=== PATIENT | female | born 1955 | race Caucasian/White ===

== ENCOUNTER 2024-02-18 09:52 | Outpatient (AMB) | payer OTHER, SELFPAY ==
--- NOTE | 2024-02-18 09:58 | A.OFFVIS_ITS ---
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 The patient is a 68 y/o woman with a history of CATIE presenting for an evaluation. She was having daytime drowsiness and snorring. She underwent a PSG demonstrating CATIE and was started on CPAP. She tried it, but felt like the pressures were too high. She could not tolerate it and returned it. In the meantime, she was having Chest pressure and was referred to cardiology. She has an appt early February. She presents today with persietent daytime drowsiness and would like to reattempt the use of CPAP. The pamtient has an EPWORTH score of 11.24. In the meantime, it was noted that her HR was only 35 and her blood pressure stable. She denied any dizziness, although, some BOUDREAUX. I briefly ambulated her and HR only ravin to 38. We had her get an EKG where appeared to be in a junctional rhythm with high degree block. I did communicate with cardiology and recommenened transferring to the ED. We had out nurse transfer her to the ED. She will have her cardiac issues dealt with and then we will have her go for an inpatient PSG with pulmonary follow up. [facility] Medical History (Updated 02/19/24 @ 14:21 by Kris Brown MD) CATIE (obstructive sleep apnea) Family History (Updated 02/18/24 @ 11:47 by Jak Byrnes MD) Mother Hypertension Social History (Updated 02/18/24 @ 10:07 by GLADYS Young) Patient Tobacco Use Status: Never used Tobacco Review of Systems Const Reports daytime sleepiness and Reports snoring Eyes Reports no additional complaints ENT Denies vertigo, Denies dizziness and Reports nasal congestion Card Denies chest pain and Reports dyspnea on exertion Resp Reports dyspnea on exertion, Reports snoring and Denies wheezing GI Reports no additional complaints Musc Reports no additional complaints Skin/Breast Denies rash Neuro Denies vertigo and Denies dizziness Aller/Immun Denies wheezing Physical Exam Vital Signs: Last Vital Signs Pulse 35 L 02/18/24 10:02 Pulse Ox 100 02/18/24 10:02 Oxygen Delivery Method Room Air 02/18/24 10:02 BMI result Body Mass Index 37.1 Last Vital Signs Temp 97.5 F 02/18/24 11:20 Pulse 36 L 02/18/24 11:20 Resp 12 02/18/24 11:20 BP 176/76 H 02/18/24 11:20 Pulse Ox 99 02/18/24 11:20 O2 Del Method Room Air 02/18/24 11:20 BMI result Body Mass Index 37.1 Const General: comfortable and no acute distress Orientation/consciousness: patient oriented x3 HEENT Other: Unremarkable Head: Yes normal to inspection Neck Neck: Yes normal visual inspection Chest Chest palpation & inspection: normal inspection of the chest Resp Effort & Inspection: normal respiratory effort Auscultation: clear to auscultation bilaterally Cardio Rate: bradycardic Heart sounds: S1 normal heart sound present, S2 normal heart sound present and no murmurs GI Palpation (GI): Soft to palpation Back/Spine/Pelvis Other: unremarkable Skin General skin exam: no rashes or lesions noted Neuro General: patient oriented x3 Extrem General: Yes normal to inspection Psych Mental Status: mental status grossly normal Assessment & Plan Assessment & Plan (1) Complete heart block: Code(s): I44.2 - Atrioventricular block, complete Category: Medical (2) CATIE (obstructive sleep apnea): Code(s): G47.33 - Obstructive sleep apnea (adult) (pediatric) Category: Medical Plan Transfer to ED in lab PSG F/U 2 months Coding Level of Care Code New Pt Level 5 (25400) Diagnoses Complete heart block I44.2 CATIE (obstructive sleep apnea) G47.33 Time Spent (min) 45
[2024-02-18 10:02] VITALS: PULSE 35; O2SAT 100; BMI 37.1
== END 2024-02-18 10:40 | disposition home or self-care (01) ==
PROVIDERS: PCP Internal Medicine; Visit Provider Hospitalist
DX: G47.33 Obstructive sleep apnea (adult) (pediatric) (principal); I44.2 Atrioventricular block, complete
CPT/HCPCS: 99205

== ENCOUNTER → 2024-02-18 09:52 | Outpatient (BNVA) | payer OTHER, SELFPAY | PROVIDERS: PCP Internal Medicine; Visit Provider Hospitalist | DX: G47.33 Obstructive sleep apnea (adult) (pediatric) (principal); I44.2 Atrioventricular block, complete | CPT/HCPCS: 99202 ==

== ENCOUNTER 2024-02-18 10:49 | Emergency (ER) | payer OTHER, SELFPAY ==
[2024-02-18 10:53] VITALS: BP 169/65; PULSE 38; RESP 16; TEMP 36.6; O2SAT 100; BMI 37.1
--- NOTE | 2024-02-18 10:55 | ED.GENADULT ---
HPI - General Adult General Chief complaint: Arrhythmia/Palpitations Stated complaint: abnormal ekg Time Seen by Provider: 02/18/24 11:08 Source: patient and old records reviewed Mode of arrival: ambulatory Limitations: no limitations History of Present Illness ED Provider: Leticia Jimenez PA-C HPI narrative: 68-year-old Trinidadian-speaking female with a history of HTN, hypothyroidism, obesity, CATIE who presents to the ER from Pulmonary office where she was being evaluated for the 1st time for obstructive sleep apnea, presents to the ER for evaluation after she was found to have complete heart block on EKG there. Patient states she feels well today. She denies any dizziness, palpitations, lightheadedness or episodes of near-syncope. She reports chronic fatigue and malaise that has been going on for several months. She denies any recent illnesses, fevers, chills, nausea, vomiting, abdominal pain or episodes of chest pain. She denies any shortness of breath. She states she last saw her PCP about a month ago and was never told about having a slow heart rate. She is not on any beta-blockers or calcium channel blockers. MD complaint: Complete heart block on EKG Relieving factors: none Exacerbating factors: none Associated symptoms: denies other symptoms Treatments prior to arrival: none Related Data Home Medications ?Medication ?Instructions ?Recorded ?Confirmed fluticasone propionate 50 intranasal 02/18/24 mcg/actuation nasal spray,suspension hydrochlorothiazide 25 mg tablet 25 mg PO DAILY 02/18/24 levothyroxine 112 mcg tablet mcg PO 02/18/24 omeprazole 20 mg capsule,delayed 20 mg PO DAILY 02/18/24 release Allergies Allergy/AdvReac Type Severity Reaction Status Date / Time No Known Allergies Allergy Verified 02/18/24 10:54 Review of Systems Review of Systems: Yes all other systems are reviewed and are negative PMFSH Family History Family History (Updated 02/18/24 @ 11:47 by Jak Byrnes MD) Mother Hypertension Social History Social History (Updated 02/18/24 @ 10:07 by GLADYS Young) Patient Tobacco Use Status: Never used Tobacco Smoked in Last 30 Days: No Use of substances other than those prescribed or required for medical reasons: No Advance Directives: No Advance Directives Information Provided: Yes Do you have a plan to hurt others: No Plan Physical Exam ED Vital Signs: Vital Signs - 24 hr 02/18/24 10:53 02/18/24 11:20 02/18/24 11:58 Temperature 97.8 F 97.5 F Pulse Rate 38 L 36 L 34 L Respiratory Rate 16 12 14 Blood Pressure 169/65 H 176/76 H 173/73 H Pulse Oximetry 100 99 97 Oxygen Delivery Method Room Air Room Air Room Air BMI result Body Mass Index 37.1 Appearance: Alert. Oriented X3. No acute distress. Head: normocephalic, atraumatic. Eyes: Pupils equal, round and reactive to light. ENT: Pharynx normal. No tonsillar swelling or exudate. Neck: Normal inspection. Neck supple. CVS: Bradycardic, irregular rhythm, no appreciated murmur. Pulses normal. Respiratory: No respiratory distress. Breath sounds normal. Abdomen: Obese soft and nontender. +BS x4 Skin: Skin warm and dry. Normal skin color. Normal skin turgor. No rashes. Extremities: No lower extremity edema. No joint swelling. Feet are warm and well perfused. Neuro/psych: Oriented X 3. No motor deficit. No sensory deficit. CN II-XII intact. Normal speech and cognition. Medical Decision Making Medical Decision Making MDM Narrative: 68-year-old Trinidadian-speaking female with history of hypertension, hypothyroidism, obesity presenting to the ER from Pulmonary office for evaluation of new onset complete heart block. She is hemodynamically stable with a blood pressure in the 160s to 170s systolic. She has no current symptoms. She is on the Zoll on arrival. Cardiology consulted. Dr. Byrnes down to evaluate the patient's bedside Lab workup here showing no anemia, no thrombocytopenia or leukocytosis. Heart rates in the 30s on the monitor. EKG consistent with complete heart block. Patient updated on diagnosis and management. Unfortunately unable to get cardiac pacemaker placed here and will need transfer to [facility]. Dr. Byrnes has been in bed request for the patient and she will be transferred to [facility] under Dr.. Bonds. Patient updated on plan of care using staffing executive. All questions were answered. Ambulance to be booked for transport. Differential Diagnosis Differential Diagnoses: The differential diagnosis associated with the presentation includes Complete heart block, second-degree heart block, sinus bradycardia, viral pericarditis, Lyme disease Admission/Observation Consideration of admission/observation: Escalation of care including admission/observation considered Consult Healthcare Provider Management of the patient was discussed with: Document Photographer Dr. Byrnes from Cardiology Lab Data MDM Lab Attestation statement: I reviewed the patient's lab results. 02/18/24 11:14 02/18/24 11:14 Labs: Lab Results 02/18/24 02/18/24 Range/Units 11:14 11:52 WBC 5.4 (4.8-10.8) X10*3/uL RBC 4.16 L (4.20-5.50) X10*6/uL Hgb 12.9 (12.0-16.0) g/dl Hct 39.1 (37.0-47.0) % MCV 94.0 (80.0-98.0) fL MCH 31.0 (27.0-33.0) pg MCHC 33.0 (31.0-35.0) g/dl RDW 13.6 (11.0-16.0) % Plt Count 197 (160-400) X10*3/uL MPV 11.2 (9.4-12.3) fL Immature Gran % (Auto) 0.4 (0.0-0.4) % Neut % (Auto) 49.4 (45-73) % Lymph % (Auto) 38.3 (20-40) % Bullitt % (Auto) 7.3 (2-11) % Eos % (Auto) 3.9 (0-4) % Baso % (Auto) 0.7 (0-2) % Lymph # (Auto) 2.1 (1.2-4.9) X10*3/uL Bullitt # (Auto) 0.4 (0.1-1.2) X10*3/uL Eos # (Auto) 0.2 (0.0-0.4) X10*3/uL Baso # (Auto) 0.0 (0.0-0.2) X10*3/uL Abs Immat Gran (auto) 0.02 (0.00-0.03) X10*3/uL Absolute Neuts (auto) 2.6 (2.0-8.3) x10*3/uL Absolute Nucleated RBC 0.000 (0.0-0.012) X10*3/uL Nucleated RBC % (auto) 0.0 (0.0-0.2) /100WBC PT 11.8 (11.1-13.3) SEC INR 1.0 (0.9-1.1) Hold Blue Top SEE NOTE Sodium 139 (135-145) mmol/L Potassium 5.1 (3.3-5.1) mmol/L Chloride 104 (96-108) mmol/L Carbon Dioxide 24 (22-29) mmol/L Anion Gap 16 (12-20) BUN 8 L (9-16) mg/dL Creatinine 0.83 (0.5-1.4) mg/dL Estim Creat Clear Calc 72.7 Estimated GFR > 60 Random Glucose 93 (60-115) mg/dL Calcium 9.6 (8.4-10.2) mg/dL Magnesium 2.1 (1.6-2.6) mg/dL Total Bilirubin 0.5 (0.0-1.0) mg/dL AST 31 (5-31) U/L ALT 14 (0-31) U/L Alkaline Phosphatase 90 (39-117) U/L Troponin I High Sens 3.9 (<3.5-17.0) ng/L Total Protein 7.5 (6.5-8.0) g/dL Albumin 3.7 (3.5-5.0) g/dL Hold Yellow Top See Note Independent Interpretation I performed an independent interpretation of an: EKG Interpretation: EKG from the office done at 9:22 this morning with complete heart block, there is complete dissociation between the P waves in the QRS complex. T-wave inversion in V1, no ST segment elevations or depressions EKG here at 12:22 showing sinus rhythm with complete heart block, ventricular rate 35 beats per minute, complete dissociation with P waves and QRS complexes, no ST segment elevations or depressions, right bundle branch block is present Independent Historian Clinical information obtained from an independent historian. History obtained from or confirmed by: Other (Adult granddaughter at the bedside) External Record Review External record reviewed: Outpatient record Tests considered The following testing was considered but not selected: cxr considered - [place] be [place] [facility] [place]cription Management I considered prescription management with: Other (Atropine) Chronic Conditions Patient?s care impacted by: Hypertension and Other (Obesity) Critical Care Time Critical Care Time Critical Care Time: Yes Total Critical Care Time: 42 Attestation: I have personally provided critical care time exclusive of time spent on separately billable procedures. Time includes review of lab data, radiology results, discussion with consultants, and monitoring for potential decompensation. Intervention performed as documented. Discharge Plan Discharge Clinical Impression: Complete heart block Patient Disposition: [facility] Transfer Details: [facility] Prescriptions: No Action levothyroxine 112 mcg tablet PO hydrochlorothiazide 25 mg tablet 25 mg PO DAILY omeprazole 20 mg capsule,delayed release(DR/EC) 20 mg PO DAILY fluticasone propionate 50 mcg/actuation spray,suspension intranasal Print Language: Trinidadian
--- NOTE | 2024-02-18 10:56 | ECG_ITS ---
Test Reason : BRADYCARDIA Blood Pressure : / mmHG Vent. Rate : 035 BPM Atrial Rate : 060 BPM P-R Int : 000 ms QRS Dur : 126 ms QT Int : 612 ms P-R-T Axes : 029 -12 023 degrees QTc Int : 467 ms Sinus rhythm with complete heart block and Idioventricular rhythm Right bundle branch block Minimal voltage criteria for LVH, may be normal variant ( R in aVL ) Abnormal ECG No previous ECGs available Referred By: Angelica Hong Electronically Signed By:KIRK MARKS
[2024-02-18 11:18] LABS: MANUAL DIFF FLAG NO
[2024-02-18 11:20] VITALS: BP 176/76; PULSE 36; RESP 12; TEMP 36.4; O2SAT 99
[2024-02-18 11:20] LABS: Basophils Percent Auto 0.7 % (0-2); Eosinophils Absolute Auto 0.2 X10*3/uL (0.0-0.4); Eosinophils Percent Auto 3.9 % (0-4); Hematocrit 39.1 % (37.0-47.0); Hemoglobin 12.9 g/dl (12.0-16.0); Imm Gran Abs Auto 0.02 X10*3/uL (0.00-0.03); Imm Gran Pct Auto 0.4 % (0.0-0.4); Lymphocytes Absolute Auto 2.1 X10*3/uL (1.2-4.9); Lymphocytes Percent Auto 38.3 % (20-40); Mean Platelet Volume 11.2 fL (9.4-12.3); Monocytes Absolute Auto 0.4 X10*3/uL (0.1-1.2); Monocytes Percent Auto 7.3 % (2-11); Neutrophils Absolute Auto 2.6 x10*3/uL (2.0-8.3); Neutrophils Percent Auto 49.4 % (45-73); Platelet Count 197 X10*3/uL (160-400); Red Blood Count 4.16 X10*6/uL (4.20-5.50); Red Cell Distribution Width 13.6 % (11.0-16.0); White Blood Count 5.4 X10*3/uL (4.8-10.8)
--- NOTE | 2024-02-18 11:24 | PC.NURSE ---
Pt brought to [facility] for treatment. Sent from pulmonology office after EKG revealing ?complete heart block. Pt asymptomatic. Denies chest pain, denies SOB. Reports chronic fatigue. A&Ox3 skin color wnl for ethnicity. Independent at baseline. night monitor applied, pacer pads applied, code cart at bedside. IV access obtained by this float RN- 18g left AC, 20g right AC, labs drawn pending results. Provider to bedside with metal painter for primary eval. Report given to Xiomara dorado RN.
--- NOTE | 2024-02-18 11:36 | PC.NURSE ---
Cardiology MD at bedside.
[2024-02-18 11:38] LABS: Alanine Aminotransferase 14 U/L (0-31); Albumin Level 3.7 g/dL (3.5-5.0); Alkaline Phosphatase 90 U/L (39-117); Anion Gap 16 (12-20); Aspartate Amino Transferase 31 U/L (5-31); Bilirubin Total 0.5 mg/dL (0.0-1.0); Blood Urea Nitrogen 8 mg/dL (9-16); Calcium 9.6 mg/dL (8.4-10.2); Carbon Dioxide 24 mmol/L (22-29); Chloride 104 mmol/L (96-108); Creatinine Clr Calc Pharmacy 72.7; Estimated Glomerular Filt Rate > 60; Glucose Random 93 mg/dL (60-115); Magnesium 2.1 mg/dL (1.6-2.6); Potassium 5.1 mmol/L (3.3-5.1); Sodium 139 mmol/L (135-145); Total Protein 7.5 g/dL (6.5-8.0)
[2024-02-18 11:41] LABS: Troponin-I High Sensitivity 3.9 ng/L (<3.5-17.0)
--- NOTE | 2024-02-18 11:46 | P.CONCA_ITS ---
History of Present Illness History of Present Illness Date of Service: 02/18/24 Chief complaint: abnormal ekg Narrative: This is a cardiology consultation regarding bradycardia,. I received a call from Dr. Brown stating that he had patient and his Pulmonary Clinic who had low heart rates. Following that, advised him to send the patient to the emergency room. EKG had revealed complete heart block. Patient states that she does not really have any known cardiac issues. She does not seem to be on any beta-blockers or calcium channel blockers at baseline. She denies any prior coronary disease or cardiomyopathy or in fact any other cardiac issues. Seems to be hypertensive at baseline on hydrochlorothiazide. Otherwise, she states that she does get short of breath with activity but no anginal-type chest pains. Currently, she states she feels okay. Not syncopal. Review of Systems 2 Review of Systems: Yes all other systems are reviewed and are negative Constitutional: Constitutional: Reports as per HPI and Reports no additional constitutional complaints Eyes: Eyes: Reports as per HPI and Denies no additional eye complaints ENT: Denies system reviewed and no additional complaints, except as documented and Reports as per HPI Cardiovascular: Cardiovascular: Reports as per HPI, Reports no additional cardiovascular complaints, Denies acrocyanosis, Denies cool extremities, Denies chest pain, Denies leg edema, Denies lightheadedness, Denies palpitations and Reports dyspnea Respiratory: Respiratory: Reports as per HPI, Denies no additional respiratory complaints and Reports dyspnea Gastrointestinal: Gastrointestinal: Reports as per HPI and Denies no additional gastrointestinal complaints Genitourinary: Genitourinary: Reports as per HPI Musculoskeletal: Musculoskeletal: Reports no additional musculoskeletal complaints and Reports as per HPI Integumentary/Breasts: Skin/Breast: Reports system reviewed and no additional complaints, except as docu Neurologic: Reports system reviewed and no additional complaints, except as documented and Reports as per HPI Psychiatric: Psychiatric: Reports no additional psychiatric complaints and Reports as per HPI Endocrine: Endocrine: Reports no additional endocrine complaints, Reports as per HPI and Denies palpitations Hematologic/Lymphatic: Hematologic/Lymphatic: Reports no additional hematologic/lymphatic complaints and Reports as per HPI Allergic/Immunologic: Allergic/Immunologic: Reports no additional allergic/immunologic complaints and Reports as per HPI [facility] Family History Family History (Updated 02/18/24 @ 11:47 by Jak Byrnes MD) Mother Hypertension Social History Social History (Updated 02/18/24 @ 10:07 by GLADYS Young) Patient Tobacco Use Status: Never used Tobacco Smoked in Last 30 Days: No Use of substances other than those prescribed or required for medical reasons: No Do you have a plan to hurt others: No Plan Meds Allergies Allergy/AdvReac Type Severity Reaction Status Date / Time No Known Allergies Allergy Verified 02/18/24 10:54 Home Medications ?Medication ?Instructions ?Recorded ?Confirmed ?Last Taken ?Type fluticasone propionate 50 intranasal 02/18/24 Unknown History mcg/actuation nasal spray,suspension hydrochlorothiazide 25 mg tablet 25 mg PO DAILY 02/18/24 Unknown History levothyroxine 112 mcg tablet mcg PO 02/18/24 Unknown History omeprazole 20 mg capsule,delayed 20 mg PO DAILY 02/18/24 Unknown History release Physical Exam 2 Vital Signs: Vital Signs: Last Vital Signs Temp 97.5 F 02/18/24 11:20 Pulse 36 L 02/18/24 11:20 Resp 12 02/18/24 11:20 BP 176/76 H 02/18/24 11:20 Pulse Ox 99 02/18/24 11:20 O2 Del Method Room Air 02/18/24 11:20 BMI result Body Mass Index 37.1 Const: General: comfortable and no acute distress O rientation/consciousness: patient oriented x3 HEENT: Other: Unremarkable Head: Yes normal to inspection Neck: Neck: Yes normal visual inspection Chest: Chest palpation & inspection: normal inspection of the chest Resp: Auscultation: clear to auscultation bilaterally Cardio: Palpation: normal PMI Heart sounds: S1 normal heart sound present, S2 normal heart sound present, no gallops, no murmurs and no rubs GI: Palpation (GI): Soft to palpation Back/Spine/Pelvis: Other: unremarkable Skin: General skin exam: no rashes or lesions noted Neuro: General: patient oriented x3 Extrem: General: Yes normal to inspection Psych: Mental Status: mental status grossly normal Objective Labs and Meds 02/18/24 11:14 02/18/24 11:14 Lab results: Laboratory Results - last 24 hr 02/18/24 11:14 WBC 5.4 RBC 4.16 L Hgb 12.9 Hct 39.1 MCV 94.0 MCH 31.0 MCHC 33.0 RDW 13.6 Plt Count 197 MPV 11.2 Immature Gran % (Auto) 0.4 Neut % (Auto) 49.4 Lymph % (Auto) 38.3 [place]tinger % (Auto) 7.3 Eos % (Auto) 3.9 Baso % (Auto) 0.7 Lymph # (Auto) 2.1 [place]tinger # (Auto) 0.4 Eos # (Auto) 0.2 Baso # (Auto) 0.0 Abs Immat Gran (auto) 0.02 Absolute Neuts (auto) 2.6 Absolute Nucleated RBC 0.000 Nucleated RBC % (auto) 0.0 Sodium 139 Potassium 5.1 Chloride 104 Carbon Dioxide 24 Anion Gap 16 BUN 8 L Creatinine 0.83 Estim Creat Clear Calc 72.7 Estimated GFR > 60 Random Glucose 93 Calcium 9.6 Magnesium 2.1 Total Bilirubin 0.5 AST 31 ALT 14 Alkaline Phosphatase 90 Troponin I High Sens 3.9 Total Protein 7.5 Albumin 3.7 Hold Yellow Top See Note ECG Interpretation: EKG from pulmonary office shows complete heart block with likely junctional escape at 36/Min. Assessment and Plan (1) Complete heart block: Status: Acute Plan EKG suggestive of complete heart block with junctional escape rhythm. Patient has exertional shortness of breath. Labs are essentially unremarkable with normal troponins. Discussed with ER provider as well as with [facility] transfer service/EP, . Transferred to [facility] for pacemaker placement. Discussed with patient as well as her family and they are in agreement. Procedures Date of Service Date of Service: 02/18/24
--- OUTSIDE RECORDS SUMMARY | 2024-02-18 11:47 | XMS_ITS | Continuity of Care Document ---
Author Organization [facility] Address [address] [place] [address]- Care Team Providers Care Carburetor Repairer Name Role Phone Jordan CALVERT, Oscar Primary Care Physician Encounter [facility] Date(s): 07/09/23 - 08/08/[address] [address]- Attending Physician: Duke Corley Admitting Physician: AdmtrDuke Referring Physician: Admtr, Ar8 Allergies, Adverse Reactions, Alerts No Known Allergies Immunizations Given and Recorded Vaccine Date Status Refusal Reason influenza virus vaccine, inactivated 06/20/16 Give n influenza virus vaccine, inactivated 1 09/06/14 Gi briana influenza virus vaccine, inactivated 2 05/27/13 Gi briana tetanus/diphtheria/pertussis, acel(Tdap) 3 05/27/13 Given 1Result Comment: [09/06/2014] Charline interpreting. No contraindications noted. Remains at [facility] x next 20 minutes. 2Result Comment: [05/27/2013] flulaval 3Result Comment: [05/27/2013] Adacel. VIS in Malagasy given. Medications Amlodipine By Mouth, Daily, 0 Refills, Maintenance, 12/29/22 0:49:00 EDT, Partial fill upon patient request ifthe prescription is for a schedule II opioid drug. Start Date: 12/29/22 Status: Ordered CPAP Machine Auto CPAP 6-11, Maintenance, 01/07/18 18:46:29 EDT, Compound Start Date: 01/07/18 Status: Ordered First Omeprazole See Instructions, 0 Refills, Maintenance, 12/29/22 0:49:00 EDT, Partial fill upon patient request if the prescription is for a schedule II opioid drug. Start Date: 12/29/22 Status: Ordered Lasix 20 mg oral tablet 20 mg, 1, tablet, By Mouth, Every other day, PRN, may repeat for persistent swelling, # 20 tablet, Refills 0, Tot. Refills 0, Maintenance, Other, 12/29/22 3:16:00 EDT, Route to Pharmacy Electronically, [id number], Partial fill upon pa... Start Date: 12/29/22 Stop Date: 01/05/23 Status: Ordered levothyroxine 0.112 mg oral tablet 1 tablet = 112 mcg, By Mouth, Daily, 0 Refills, Maintenance, 10/30/16 12:01:22 Start Date: 10/30/16 Status: Ordered Meloxicam Daily, 0 Refills, Maintenance, 12/29/22 0:48:00 EDT, Partial fill upon patient request if the prescription is for a schedule II opioid drug. Start Date: 12/29/22 Status: Ordered Ranitidine 0 Refills, Maintenance, 05/05/18 11:24:48 EDT Start Date: 05/05/18 Status: Ordered Trazodone By Mouth, 0 Refills, Maintenance, 12/29/22 0:48:00 EDT, Partial fill upon patient request if the prescription is for a schedule II opioid drug. Start Date: 12/29/22 Status: Ordered zolpidem 10 mg oral tablet 1 tablet = 10 mg, By Mouth, Daily at bedtime, PRN for sleep, 0 Refills, Maintenance, 11/02/17 10:56:14 EDT, Tablet Start Date: 11/02/17 Status: Ordered Problem List Condition Confirmation Course Effective Dates Status H ealth Status Informant Anxiety Confirmed Active Atypical ductal hyperplasia of breast Confirmed Active Atypical endometrial cells on Pap smear Confirmed 12/15/16 Active Constipation Confirmed Active Contact dermatitis, in ER Confirmed Active Dementia - mild, mixed, per -2014 neuropsychiatric testing Confirmed Active Disorder of lower leg - lateral meniscus issues bilaterally and severe OA, see note if needed 1 Confirmed Active Allergy to dust Confirmed Active S/P TKR (total knee replacement) left 2 Confirmed 12/2015 Active Hypertensive disorder Confirmed Active Hypothyroidism Confirmed Active Impaired glucose tolerance Confirmed 2012 Active Obesity Confirmed Active CATIE (obstructive sleep apnea); moderate -2013 Confirmed Active Osteoarthritis of knee, end-stage per -2013 Confirmed Active Postmenopausal bleeding Confirmed Active Seborrheic keratosis 3 Confirmed Active Severe obesity (BMI 35.0-39.9) with comorbidity Confirmed Active Varicose veins Confirmed Active 1bilateral, severe per MRI done in [place] May 2012 2left 3of nose per Derm note Social History Social History Type Response Smoking Status Never smoker; Tobacc o user in household: No entered on: 12/04/14 Sex Patient Care team information Care Team Personnel Name: Yamilka Meza RN Position: [facility] RN Member Role: Primary Care Nurse Name: Genesis Gutiérrez RN Position: [facility] RN Member Role: Primary Care Nurse Name: Oscar Ortega MD Position: Reference Physician Member Role: PCP Address: Address: [address] [facility] [place], [place] [address] Name: Nahomy Orr RN Position: [facility] [employer] Member Role: Primary Care Nurse Care Team Related Persons Name: NASRA JOHNSON Address: home [address] [place] [address] Name: REYNALDO LUCIANO Address: home [address] [place] [address] Name: CESAR LIN Address: home [address] [place] [address] Name: NED LIN Address: home [address] [place] [address]
--- OUTSIDE RECORDS SUMMARY | 2024-02-18 11:47 | XMS_ITS | Continuity of Care Document ---
Author Organization [facility] Address [address] [place] [address]- Care Team Providers Care Medical Record Specialist Name Role Phone Boby CALVERT, Ericka Munguia Primary Care Physician [place] [facility] [place] 11/11/19 - 11/21/19 [facility] [address] [facility] [place] [address]- [facility] Attending Physician: Admtr, Sal8 Admitting Physician: Admtr Ar8 Referring Physician: Admtr, Ar8 Allergies, Adverse Reactions, Alerts Substance Reaction Severity Status NKA Active Immunizations Given and Recorded Vaccine Date Status Refusal Reason influenza virus vaccine, inactivated 06/20/16 Give n influenza virus vaccine, inactivated 1 09/06/14 Gi briana influenza virus vaccine, inactivated 2 05/27/13 Gi briana tetanus/diphtheria/pertussis, acel(Tdap) 3 05/27/13 Given 1Result Comment: [09/06/2014] Charline interpreting. No contraindications noted. Remains at [facility] x next 20 minutes. 2Result Comment: [05/27/2013] flulaval 3Result Comment: [05/27/2013] Adacel. VIS in Belarusian given. Medications CPAP Machine Auto CPAP 01-04, Maintenance, 01/07/18 18:46:29 EDT, Compound Start Date: 01/07/18 Status: Ordered levothyroxine 0.112 mg oral tablet 1 tablet = 112 mcg, By Mouth, Daily, 0 Refills, Maintenance, 10/30/16 12:01:22 Start Date: 10/30/16 Status: Ordered Ranitidine 0 Refills, Maintenance, 05/05/18 11:24:48 EDT Start Date: 05/05/18 Status: Ordered zolpidem 10 mg oral tablet 1 tablet = 10 mg, By Mouth, Daily at bedtime, PRN for sleep, 0 Refills, Maintenance, 11/02/17 10:56:14 EDT, Tablet Start Date: 11/02/17 Status: Ordered Problem List Condition Effective Dates Status Health Status Inform ant Anxiety(Confirmed) Active Atypical ductal hyperplasia of breast(Confirmed) Active Atypical endometrial cells o n Pap smear(Confirmed) 12/15/16 Active Constipation(Confirmed) Active Contact dermatitis, in ER (Confirmed) Active Dementia - mild, mixed, per -2014 neuropsychiatric testing(Confirmed) Active Disorder of lower leg - late ral meniscus issues bilaterally and severe OA, see note if needed(Confirmed) 1 Active Allergy to dust(Confirmed) Active S/P TKR (total knee replacem ent) left(Confirmed) 2 12/2015 Active Hypertensive disorder(Confirmed) Active Hypothyroidism(Confirmed) Active Impaired glucose tolerance(Confirmed) 2012 Active Obesity(Confirmed) Active CATIE (obstructive sleep apnea ); moderate -2013(Confirmed) Active Osteoarthritis of knee, end- stage per (Confirmed) Active Postmenopausal bleeding(Confirmed) Active Seborrheic keratosis(Confirmed) 3 Active Varicose veins(Confirmed) Active 1bilateral, severe per MRI done in [place] May 2012 2left 3of nose per Derm note Social History Social History Type Response Smoking Status Never smoker; Tobacc o user in household: No entered on: 12/04/14 Sex
--- OUTSIDE RECORDS SUMMARY | 2024-02-18 11:47 | XMS_ITS | Continuity of Care Document ---
Author Organization [facility] Address [address] [place] [address]- Care Team Providers Care Analytical Scientist Name Role Phone Ericka Landis MD Primary Care Physician [place] [facility] [place] 01/10/20 - 02/23/20 [facility] [address] [place] [address]- [facility] Attending Physician: Alejandrina Allen NP Admitting Physician: Alejandro DANG, Alejandrina Referring Physician: Ericka Landis MD Allergies, Adverse Reactions, Alerts Substance Reaction Severity [...] flulaval 3Result Comment: [05/27/2013] Adacel. VIS in Swazi given. Medications CPAP Machine Auto CPAP 01-04, [...] Active CATIE (obstructive sleep apnea ); moderate (Confirmed) Active Osteoarthritis of knee, end- stage per (Confirmed) Active Postmenopausal bleeding(Confirmed) Active Seborrheic keratosis(Confirmed) 3 Active Varicose veins(Confirmed) Active 1bilateral, severe per MRI done in [place] May 2012 2left 3of nose per Derm note Social History Social History Type Response Smoking Status Never smoker; Tobacc o user in household: No entered on: 12/04/14 Sex
--- OUTSIDE RECORDS SUMMARY | 2024-02-18 11:48 | XMS_ITS | Continuity of Care Document ---
Author Organization [facility] Address [address] [place] [address]- Care Team Providers Care Amusement Park Entertainer Name Role Phone Ericka Landis MD Primary Care Physician [place] [facility] [place] 01/10/20 - 02/23/20 [facility] [address] [place] [address]- [facility] Attending Physician: Judit Allison MD Referring Physician: Ericka Landis MD Allergies, Adverse [...] flulaval 3Result Comment: [05/27/2013] Adacel. VIS in Sudanese given. Medications CPAP Machine Auto CPAP 01-04, [...] (Confirmed) Active Dementia - mild, mixed, per neuropsychiatric testing(Confirmed) Active Disorder of lower leg [...] Active 1bilateral, severe per MRI done in [place] May 2012 2left 3of nose per Derm note Social History Social History Type Response Smoking Status Never smoker; Tobacc o user in household: No entered on: 12/04/14 Sex
--- OUTSIDE RECORDS SUMMARY | 2024-02-18 11:48 | XMS_ITS | Continuity of Care Document ---
Author Organization [facility] Address [address] [place] [address]- Care Team Providers Care Airplane Patroller Name Role Phone Ericka Landis MD Primary Care Physician [place] [facility] [place]/19 [facility] [address] [facility] [address]- [facility] Attending Physician: Alejandrina Allen NP Admitting Physician: Alejandrina Allen NP Referring Physician: Ericka Landis MD Allergies, Adverse Reactions, Alerts Substance Reaction Severity Status NKA Active Immunizations Given and Recorded Vaccine Date Status Refusal Reason influenza virus vaccine, inactivated 06/20/16 Give n influenza virus vaccine, inactivated 1 09/06/14 Gi brinaa influenza virus vaccine, inactivated 2 05/27/13 Gi briana tetanus/diphtheria/pertussis, acel(Tdap) 3 05/27/13 Given 1Result Comment: [09/06/2014] Charline interpreting. No contraindications noted. Remains at [facility] x next 20 minutes. 2Result Comment: [05/27/2013] flulaval 3Result Comment: [05/27/2013] Adacel. VIS in Yakut given. Medications CPAP Machine Auto CPAP 01-04, [...]
--- OUTSIDE RECORDS SUMMARY | 2024-02-18 11:48 | XMS_ITS | Continuity of Care Document ---
Author Organization [facility] Address [address] [place] [address]- Care Team Providers Care Supervisor Extruding Department Name Role Phone Not on Staff, PCP Primary Care Physician Unavail able [place] [facility] [place] 03/24/20 [facility] [address] [place] [address]- [facility] Attending Physician: Alejandro DANG, Alejandrina Admitting Physician: Alejandro DANG, Alejandrina Referring Physician: Boby CALVERT , Ericka Munguia Allergies, Adverse Reactions, Alerts Substance Reaction Severity [...] flulaval 3Result Comment: [05/27/2013] Adacel. VIS in Azerbaijani given. Medications CPAP Machine Auto CPAP 01-04, [...] Active 1bilateral, severe per MRI done in [place] May 2012 2left 3of nose per Derm note Social History Social History Type Response Smoking Status Never smoker; Tobacc o user in household: No entered on: 12/04/14 Sex
--- OUTSIDE RECORDS SUMMARY | 2024-02-18 11:48 | XMS_ITS | Continuity of Care Document ---
Author Organization [facility] Address [address] [place] [address]- Care Team Providers Care Fiberglass Machine Operator Name Role Phone Boby CALVERT, Ericka Munguia Primary Care Physician En[place] [facility] [place] Date(s): 01/24/20 - 02/23/20 [facility] [address] [place] [address]- [facility] Attending Physician: Admtr, Sal8 Admitting Physician: Admtr, Ar8 Referring Physician: Admtr, Ar8 Allergies, Adverse [...] flulaval 3Result Comment: [05/27/2013] Adacel. VIS in Russian given. Medications CPAP Machine Auto CPAP 01-04, [...] Active 1bilateral, severe per MRI done in [place] May 2012 2left 3of nose per Derm note Social History Social History Type Response Smoking Status Never smoker; Tobacc o user in household: No entered on: 12/04/14 Sex
--- OUTSIDE RECORDS SUMMARY | 2024-02-18 11:48 | XMS_ITS | Continuity of Care Document ---
Author Organization [facility] Address [address] [place] [address]- Care Team Providers Care Combined Rail Operator Name Role Phone Not on Staff, PCP Primary Care Physician Unavail able Encounter [facility] [place] Date(s): 10/25/21 - 06/21/22 [facility] [address] [place] [address]- Attending Physician: Alma Dugan MD Admitting Physician: Alma Dugan MD Referring Physician: Not on Staff, Referring MD Allergies, Adverse Reactions, Alerts No Known Allergies [...] flulaval 3Result Comment: [05/27/2013] Adacel. VIS in Yemeni given. Medications CPAP Machine Auto CPAP 01-04, [...] Confirmed Active Dementia - mild, mixed, per neuropsychiatric testing Confirmed Active Disorder of lower leg - lateral meniscus issues bilaterally and severe OA, see note if needed 1 Confirmed Active Allergy to dust Confirmed Active S/P TKR (total knee replacement) left 2 Confirmed 12/2015 Active Hypertensive disorder Confirmed Active Hypothyroidism Confirmed Active Impaired glucose tolerance Confirmed 2012 Active Obese class II Confirmed Active Obesity Confirmed Active CATIE (obstructive sleep apnea); moderate -2013 Confirmed Active Osteoarthritis of knee, end-stage per Confirmed Active Postmenopausal bleeding Confirmed Active Seborrheic keratosis 3 Confirmed Active Varicose veins Confirmed Active 1bilateral, severe per MRI done in [place] May 2012 2left 3of nose per Derm note Social History Social History Type Response Smoking Status Never smoker; Tobacc o user in household: No entered on: 12/04/14 Sex Patient Care team information Care Team Personnel Name: Yamilka Meza RN Position: [facility] RN Member Role: Primary Care Nurse Name: Not on Staff, PCP Position: [facility] Physician (General Medicine) Member Role: PCP Name: Genesis Gutiérrez RN Position: [facility] RN Member Role: Primary Care Nurse Name: Nahomy Orr RN Position: [facility] Hospital Equipment Specialist Member Role: Primary Care Nurse Care Team Related Persons Name: NASRA JOHNSON Address: [address] [place] [address] Name: REYNALDO LUCIANO Address: [address] [place] [address] Name: EMILEE LIN Address: [address] [place] [address] Name: NED LIN Address: [address] [place] [address]
--- OUTSIDE RECORDS SUMMARY | 2024-02-18 11:48 | XMS_ITS | Continuity of Care Document ---
Author Organization [facility] Address [address] [place] [address]- Care Team Providers Care Supervisor Waterproofing Name Role Phone Not on Staff, PCP Primary Care Physician Unavail able [place] [facility] [place] 03/28/20 - 04/04/20 [facility] [address] [place] [address]- [facility] Encounter Diagnosis Travel advice encounter(Discharge Diagnosis) - 03/28/20 Attending Physician: Payal CALVERT, Trace Gil Allergies, Adverse Reactions, Alerts Substance Reaction Severity [...] flulaval 3Result Comment: [05/27/2013] Adacel. VIS in Belgian given. Medications CPAP Machine Auto CPAP 01-04, [...] Active 1bilateral, severe per MRI done in [place] May 2012 2left 3of nose per Derm note Diagnosis Diagnosis Type Effective Dates Health Status Cl inical Service Informant Travel advice encounter Discharge Diagnosis 03/28/20 Social History Social History Type Response Smoking Status Never smoker; Tobacc o user in household: No entered on: 12/04/14 Sex
--- OUTSIDE RECORDS SUMMARY | 2024-02-18 11:48 | XMS_ITS | Continuity of Care Document ---
Author Organization [facility] Address [address] [place] [address]- Care Team Providers Care Tanbark Peeler Name Role Phone Jordan CALVERT, Oscar Primary Care Physician Encounter [facility] [place] Date(s): 02/02/23 - 02/02/[address] [address]- Encounter Diagnosis Head injury, acute, without loss of consciousness(Final) - 02/02/23 Discharge Disposition: A-D/C Home Attending Physician: Nuno Cordero MD Admitting Physician: Nuno Cordero MD Referring Physician: Not on Staff, Referring [...] flulaval 3Result Comment: [05/27/2013] Adacel. VIS in Sami given. Medications Amlodipine By Mouth, Daily, 0 Refills, Maintenance, 12/29/22 0:49:00 EDT, Partial fill upon patient request ifthe prescription is for a schedule II opioid drug. Start Date: 12/29/22 Status: Ordered CPAP Machine Auto CPAP 6-, Maintenance, 01/07/18 18:46:29 EDT, Compound Start Date: [...] 12/29/22 3:16:00 EDT, Route to Pharmacy Electronically, [id number], Partial fill upon pa... Start Date: 12/29/22 [...] Confirmed Active CATIE (obstructive sleep apnea); moderate Confirmed Active Osteoarthritis of knee, end-stage per Confirmed Active Postmenopausal bleeding Confirmed Active Seborrheic keratosis 3 Confirmed Active Severe obesity (BMI 35.0-39.9) with comorbidity Confirmed Active Varicose veins Confirmed Active 1bilateral, severe per MRI done in [place] May 2012 2left 3of nose per Derm note Results Radiology Reports * Exam Date Time Procedure Performing Provider Status 02/02/23 9:[address] Cervical Spine W/O Contrast Erlinda Keene nd; Christopher (Verified) Notes: (CT Cervical Spine W/O Contrast) Reason For Exam: Neck trauma, dangerous injury mechanism;Other: RESULT: CT Cervical Spine W/O Contrast CT Head/Brain W/O Contrast, CT Cervical Spine W/O Contrast INDICATION: Reason: Other:; Head trauma, mod-severe; Clinical Question(s): Hematoma TECHNIQUE: Noncontrast head CT using axial technique was reconstructed in axial and coronal planes.Noncontrast spiral CT through the cervical spine was formatted in 3 planes. Automatic tube modulation was used for the cervical spine and iterative dose reconstruction was used for both the head and cervical spine to optimize scan parameters and image quality. CTDIvol Body: 20.20 mGy, DLP Body: 458 mGy*cm. CTDIvol Head: 41.80 mGy, DLP Head: 672 mGy*cm. COMPARISON: 05/06/2014 FINDINGS: Director Workers Compensation View Findings, Lines and Tubes: None. BRAIN AND EXTRA-AXIAL SPACES: No parenchymal hemorrhage, midline shift, or mass effect. Weiss-white matter differentiation is wellpreserved. No acute infarct. Ventricles, sulci, and basilar cisterns are normal. Mild chronic small vessel ischemic changes. No subarachnoid hemorrhage. No subdural or epidural collection. CALVARIUM, SKULL BASE, AND SOFT TISSUES: No fractures or suspicious bony lesions. The paranasal sinuses and mastoid air cells are clear. Visualized orbits and globes are intact. The extracranial soft tissues are unremarkable. CERVICAL SPINE: No fracture. No acute osseous abnormalities. Normal alignment. No locked or perched facet. Intervertebral disc spaces and vertebral body heightsare preserved. OTHER BONES: No acute abnormality. CERVICAL SOFT TISSUES AND LUNG APICES: Normal soft tissues. Visualized lung apices are clear. IMPRESSION: No acute intracranial abnormality. Mild chronic small vessel ischemic changes. No cervical spine fracture or subluxation. Disc and facet degenerative disease throughout the cervical spine. WSN: [id number] Ordering Physician: Nuno Cordero Dictated By: Morgan Sellers MD Dictated Date/Time: 02/02/23 9:40 pm Reviewed By: Morgan Sellers MD Signed By: Morgan Sellers MD Signed Date/Time: 02/02/23 9:40 pm Transcribed By: CELESTINO Transcribed Date/Time: 02/02/23 9:17 pm * Exam Date Time Procedure Performing Provider Status 02/02/23 9:[address] Head/Brain W/O Contrast Erlinda Gibbs; Auth (Verified) Notes: (CT Head/Brain W/O Contrast) Reason For Exam: Head trauma, mod-severe;Other: RESULT: CT Head/Brain W/O Contrast CT Head/Brain W/O Contrast, CT Cervical Spine W/O Contrast INDICATION: Reason: Other:; Head trauma, mod-severe; Clinical Question(s): Hematoma TECHNIQUE: Noncontrast head CT using axial technique was reconstructed in axial and coronal planes.Noncontrast spiral CT through the cervical spine was formatted in 3 planes. Automatic tube modulation was used for the cervical spine and iterative dose reconstruction was used for both the head and cervical spine to optimize scan parameters and image quality. CTDIvol Body: 20.20 mGy, DLP Body: 458 mGy*cm. CTDIvol Head: 41.80 mGy, DLP Head: 672 mGy*cm. COMPARISON: 05/06/2014 FINDINGS: Director Workers Compensation View Findings, Lines and Tubes: None. BRAIN AND EXTRA-AXIAL SPACES: No parenchymal hemorrhage, midline shift, or mass effect. Weiss-white matter differentiation is wellpreserved. No acute infarct. Ventricles, sulci, and basilar cisterns are normal. Mild chronic small vessel ischemic changes. No subarachnoid hemorrhage. No subdural or epidural collection. CALVARIUM, SKULL BASE, AND SOFT TISSUES: No fractures or suspicious bony lesions. The paranasal sinuses and mastoid air cells are clear. Visualized orbits and globes are intact. The extracranial soft tissues are unremarkable. CERVICAL SPINE: No fracture. No acute osseous abnormalities. Normal alignment. No locked or perched facet. Intervertebral disc spaces and vertebral body heightsare preserved. OTHER BONES: No acute abnormality. CERVICAL SOFT TISSUES AND LUNG APICES: Normal soft tissues. Visualized lung apices are clear. IMPRESSION: No acute intracranial abnormality. Mild chronic small vessel ischemic changes. No cervical spine fracture or subluxation. Disc and facet degenerative disease throughout the cervical spine. WSN: [id number] Ordering Physician: Nuno Cordero Dictated By: Morgan Sellers MD Dictated Date/Time: 02/02/23 9:40 pm Reviewed By: Morgan Sellers MD Signed By: Morgan Sellers MD Signed Date/Time: 02/02/23 9:40 pm Transcribed By: CELESTINO Transcribed Date/Time: 02/02/23 9:17 pm * Exam Date Time Procedure Performing Provider Status 02/02/23 8:19 PM Humerus Min 2 Views Right Forte , Mauricio ; Auth (Verified) Notes: (Humerus Min 2 Views Right) Reason For Exam: with Pain;Trauma RESULT: Humerus Min 2 Views Right Forearm 2 Views Right, Humerus Min 2 Views Right Reason: Trauma; with Pain; Clinical Question(s): Fracture COMPARISON: None. FINDINGS: Impacted fracture of the distal right radial metadiaphysis. Moderate soft tissue edema. IMPRESSION: Impacted fracture of the distal right metadiaphysis. Findings were communicated via telephone by Dr. Sherry Pelayo to Nuno Cordero MD on 02/02/2023 at 8:45 PM . I have personally reviewed the images and I agree with this report. WSN: [id number] Ordering Physician: Nuno Cordero Dictated By: Sherry Pelayo DO Dictated Date/Time: 02/02/23 8:51 pm Reviewed By: Oneal Gonzalez MD Signed By: Oneal Gonzalez MD Signed Date/Time: 02/02/23 8:56 pm Transcribed By: CELESTINO Transcribed Date/Time: 02/02/23 8:46 pm * Exam Date Time Procedure Performing Provider Status 02/02/23 8:19 PM Forearm 2 Views Right Forte , Mauricio; Au th (Verified) Notes: (Forearm 2 Views Right) Reason For Exam: with Pain;Trauma RESULT: Forearm 2 Views Right Forearm 2 Views Right, Humerus Min 2 Views Right Reason: Trauma; with Pain; Clinical Question(s): Fracture COMPARISON: None. FINDINGS: Impacted fracture of the distal right radial metadiaphysis. Moderate soft tissue edema. IMPRESSION: Impacted fracture of the distal right metadiaphysis. Findings were communicated via telephone by Dr. Sherry Pelayo to Nuno Cordero MD on 02/02/2023 at 8:45 PM . I have personally reviewed the images and I agree with this report. WSN: [id number] Ordering Physician: Nuno Cordero Dictated By: Sherry Pelayo DO Dictated Date/Time: 02/02/23 8:51 pm Reviewed By: Oneal Gonzalez MD Signed By: Oneal Gonzalez MD Signed Date/Time: 02/02/23 8:56 pm Transcribed By: CELESTINO Transcribed Date/Time: 02/02/23 8:46 pm * Exam Date Time Procedure Performing Provider Status 02/02/23 8:18 PM Knee 1 or 2 Views Left Mauricio Forte; A ut (Verified) Notes: (Knee 1 or 2 Views Left) Reason For Exam: with Pain;Trauma RESULT: Knee 1 or 2 Views Left Knee 1 or 2 Views Left, 2 views Reason: Trauma; with Pain; Clinical Question(s): Fracture COMPARISON: None. FINDINGS: Status post total left knee arthroplasty. No evidence of hardware failure. Moderate degenerative changes noted at the patellofemoral compartment. IMPRESSION: No evidence of fracture. I have personally reviewed the images and I agree with this report. WSN: [id number] Ordering Physician: Nuno Cordero Dictated By: Sherry Pelayo DO Dictated Date/Time: 02/02/23 8:43 pm Reviewed By: Oneal Gonzalez MD Signed By: Oneal Gonzalez MD Signed Date/Time: 02/02/23 8:48 pm Transcribed By: CELESTINO Transcribed Date/Time: 02/02/23 8:41 pm * Exam Date Time Procedure Performing Provider Status 02/02/23 8:18 PM Knee 1 or 2 Views Right Mauricio Forte; Auth (Verified) Notes: (Knee 1 or 2 Views Right) Reason For Exam: with Pain;Trauma RESULT: Knee 1 or 2 Views Right Knee 1 or 2 Views Right, 2 views Reason: Trauma; with Pain; Clinical Question(s): Fracture COMPARISON: None. FINDINGS: Tricompartment osteoarthritis. No acute fracture or malalignment. IMPRESSION: No acute osseous injury identified. WSN: [id number] Ordering Physician: Nuno Cordero Dictated By: Oneal Gonzalez MD Dictated Date/Time: 02/02/23 8:37 pm Reviewed By: Oneal Gonzalez MD Signed By: Oneal Gonzalez MD Signed Date/Time: 02/02/23 8:37 pm Transcribed By: CELESTINO Transcribed Date/Time: 02/02/23 8:36 pm Vital Signs Most recent to oldest [Reference Range]: 1 2 Height 168 cm (02/02/23 2:28 PM) Oxygen Saturation [94-100 %] 100 % (02/02/23 5:15 PM) 100 % (02/02/23 2:28 PM) Pulse Rate [55-90 bpm] 60 bpm (02/02/23 5:15 PM) 61 bpm (02/02/23 2:28 PM) Blood Pressure [90-138/55-84 mm Hg] 144/ 71mm Hg *H* (02/02/23 5:15 PM) 150/74mm Hg *H* (02/02/23 2:28 PM) Respiratory Rate [16-30 br/min] 18 br/mi n (02/02/23 2:28 PM) Temperature [96.8-100.4 DegF] 97.9 DegF (02/02/23 5:15 PM) 98.6 DegF (02/02/23 2:28 PM) Mode of Delivery (Oxygen) Room air (02/02/23 5:15 PM) Nasal cannula (02/02/23 2:28 PM) Blood pressure sites Arm, left (02/02/23 5:15 PM) Arm, left (02/02/23 2:28 PM) Temperature Route Oral (02/02/23 5:15 PM) Oral (02/02/23 2:28 PM) Dry Weight 104 kg (02/02/23 2:28 PM) Dry Weight Obtained Via Patient/family s tated (02/02/23 2:28 PM) Social History Social History Type Response Smoking Status Never smoker; Tobacc o user in household: No entered on: 12/04/14 Sex Note * Jasmin Kiran: VERIFY, PERFORM, SIGN Event Display: Patient Education Handout Authored Date: [id number] Patient Care team information Care Team Personnel Name: Yamilka Meza RN Position: [facility] SN RN Member Role: Primary Care Nurse Name: Genesis Gutiérrez RN Position: [facility] RN Member Role: Primary Care Nurse Name: Ocsar Ortega MD Position: Reference Physician Member Role: PCP Address: Address: [address] [facility] [place] [address]- Name: Nahomy Orr RN Position: [facility] Hospital Pantry Chef Member Role: Primary Care Nurse Name: Gil CALVERT, Nuno Olivares Position: [facility] Resident Member Role: Admitting Physician Address: Address: [address] [place] [address]- Name: Gogo Brewster Position: [facility] ED TA [facility] Name: James Rodriguez RN Position: [facility] ED RN W/OE and Tasks Member Role: Patient Care Provider Name: Jasmin Kiran Position: [facility] Associate Professional Member Role: ED Physician Chief Medical Officer Address: Address: [address] [place] [address]- Care Team Related Persons Name: JADYN JOHNSONLITZA Address: home [address] [place] [address] Name: REYNALDO LUCIANO Address: home [address] [place] [address] Name: EMILEE LIN Address: [address] [place] [address] Name: NED LIN Address: [address] [place] [address]
--- OUTSIDE RECORDS SUMMARY | 2024-02-18 11:48 | XMS_ITS | Continuity of Care Document ---
Author Organization [facility] Address [address] [facility] [place] [address]- Care Team Providers Care Balance Bridge Inspector Name Role Phone Ericka Landis MD Primary Care Physician Encounter [facility] [place] Date(s): 11/02/19 - 02/19/20 [facility] [address] [facility] [place] [address]- [facility] Attending Physician: Alejandro DANG, Alejandrina Admitting Physician: [...] Charline interpreting. No contraindications noted. Remains at [facility] x next 20 minutes. 2Result Comment: [05/27/2013] flulaval 3Result Comment: [05/27/2013] Adacel. VIS in French given. Medications CPAP Machine Auto CPAP 01-04, [...] Active 1bilateral, severe per MRI done in [place] May 2012 2left 3of nose per Derm note Social History Social History Type Response Smoking Status Never smoker; Tobacc o user in household: No entered on: 12/04/14 Sex
--- OUTSIDE RECORDS SUMMARY | 2024-02-18 11:48 | XMS_ITS | Continuity of Care Document ---
Author Organization [facility] Address [address] [place] [address]- Care Team Providers Care Senior Process Control Tech Name Role Phone Not on Staff, PCP Primary Care Physician Unavail able [place] [facility] [place] 03/[place] - 04/[place]/20 [facility] [address] [place] [address]- [facility] Attending Physician: Duke Corley Admitting Physician: Duke Corley Referring Physician: AdmtrDuke Allergies, Adverse Reactions, Alerts Substance Reaction Severity [...] flulaval 3Result Comment: [05/27/2013] Adacel. VIS in Gambian given. Medications CPAP Machine Auto CPAP 01-04, [...] Active 1bilateral, severe per MRI done in [place] May 2012 2left 3of nose per Derm note Social History Social History Type Response Smoking Status Never smoker; Tobacc o user in household: No entered on: 12/04/14 Sex
--- OUTSIDE RECORDS SUMMARY | 2024-02-18 11:48 | XMS_ITS | Continuity of Care Document ---
Author Organization [facility] Address [address] [place] [address]- Care Team Providers Care Media Manager Name Role Phone Not on Staff, PCP Primary Care Physician Unavail able Encounter [facility] Date(s): 12/29/22 - 12/29/[address] [address]- Discharge Disposition: A-D/C Home Attending Physician: Mic Rosales DO Admitting Physician: Mic Rosales DO Referring Physician: Not on Staff, Referring MD [...] flulaval 3Result Comment: [05/27/2013] Adacel. VIS in Kittitian given. Medications Amlodipine By Mouth, Daily, 0 Refills, Maintenance, 12/29/22 0:49:00 EDT, Partial fill upon patient request ifthe prescription is for a schedule II opioid drug. Start Date: 12/29/22 Status: Ordered CPAP Machine Auto CPAP -, Maintenance, 01/07/18 18:46:29 EDT, Compound Start Date: [...] 3:16:00 EDT, Route to Pharmacy Electronically, [facility] #[id number], Partial fill upon pa... Start Date: 12/29/22 [...] Active 1bilateral, severe per MRI done in [place] May 2012 2left 3of nose per Derm note Results Radiology Reports * Exam Date Time Procedure Performing Provider Status 12/29/22 1:45 AM Chest 2 Views Frontal and Lat Xiomara Rahman Ezra; Auth (Verified) Notes: (Chest 2 Views Frontal and Lat) Reason For Exam: Chest Pain;Other: RESULT: Chest 2 Views Frontal and Lat Chest 2 Views Frontal and Lat Hx of Present Illness: patient has bilateral lower extremitiy edema - patient was taking lasix thatshe got from [place]-- resolved but now out of lasix and legs became swollen again - dry cough -- alwaysunbalenced but today worse; Reason: Other:; Chest Pain; Clinical Question(s): Other: COMPARISON: None. FINDINGS: LINES AND TUBES: None. LUNGS AND PLEURA: Clear lungs. Normal pulmonary vascularity. No pleural effusion. No pneumothorax. HEART, MEDIASTINUM AND ALDAIR: Mild prominence of the cardiac silhouette. Normal mediastinal and hilar contour. BONES AND SOFT TISSUES: No acute abnormality. Mild multilevel degenerative disc changes in the spine. IMPRESSION: No acute abnormality. WSN: [id number] Ordering Physician: Mic Rosales Dictated By: Rosendo Israel MD Dictated Date/Time: 12/29/22 7:35 am Reviewed By: Rosendo Israel MD Signed By: Rosendo Israel MD Signed Date/Time: 12/29/22 7:35 am Transcribed By: CELESTINO Transcribed Date/Time: 12/29/22 7:33 am Vital Signs Most recent to oldest [Reference Range]: 1 2 3 Height 163 cm (12/29/22 3:56 AM) 163 cm (12/29/22 12:46 AM) 163 cm (12/29/22 12:42 AM) Weight 105.6 kg (12/29/22 3:56 AM) 105.6 kg (12/29/22 12:46 AM) 105.6 kg (12/29/22 12:42 AM) Oxygen Saturation [94-100 %] 97 % (12/29/22 3:56 AM) 100 % (12/29/22 12:42 AM) Pulse Rate [55-90 bpm] 88 bpm (12/29/22 3:56 AM) 90 bpm (12/29/22 12:42 AM) Body Mass Index [18.5-24.99 kg/m2] 39.75 kg/m2 *>HHI* (12/29/22 3:56 AM) 39.75 kg/m2 *>HHI* (12/29/22 12:42 AM) Blood Pressure [90-138/55-84 mm Hg] 148/88mm Hg *H* (12/29/22 3:56 AM) 161/83mm Hg *H* (12/29/22 12:42 AM) Respiratory Rate [16-30 br/min] 18 br/min (12/29/22 3:56 AM) 16 br/min (12/29/22 12:42 AM) Temperature [96.8-100.4 DegF] 96.7 DegF *L* (12/29/22 12:42 AM) Mode of Delivery (Oxygen) Room air (12/29/22 3:56 AM) room air (12/29/22 12:42 AM) Blood pressure sites Arm, left (12/29/22 3:56 AM) Arm, left (12/29/22 12:42 AM) Temperature Route Temporal (12/29/22 12:42 AM) Dry Weight 105.6 kg (12/29/22 3:56 AM) 105.6 kg (12/29/22 12:46 AM) 105.6 kg (12/29/22 12:42 AM) Social History Social History Type Response Smoking Status Never smoker; Tobacc o user in household: No entered on: 12/04/14 Sex Laboratory * [facility] , CIS S: TRANSCRosendo Hood MD: VERIFY Event Display: Result: Authored Date: [id number] Chest 2 Views Frontal and Lat Hx of Present Illness: patient has bilateral lower extremitiy edema - patient was taking lasix thatshe got from [place]-- resolved but now out of lasix and legs became swollen again - dry cough -- alwaysunbalenced but today worse; Reason: Other:; Chest Pain; Clinical Question(s): Other: COMPARISON: None. FINDINGS: LINES AND TUBES: None. LUNGS AND PLEURA: Clear lungs. Normal pulmonary vascularity. No pleural effusion. No pneumothorax. HEART, MEDIASTINUM AND LADAIR: Mild prominence of the cardiac silhouette. Normal mediastinal and hilar contour. BONES AND SOFT TISSUES: No acute abnormality. Mild multilevel degenerative disc changes in the spine. IMPRESSION: No acute abnormality. WSN: [id number] Ordering Physician: Mic Rosales Dictated By: Rosendo Israel MD Dictated Date/Time: 12/29/22 7:35 am Reviewed By: Rosendo Israel MD Signed By: Rosendo Israel MD Signed Date/Time: 12/29/22 7:35 am Transcribed By: CSShu Transcribed Date/Time: 12/29/22 7:33 am Patient Care team information Care Team Personnel Name: Yamilka Meza RN Position: [facility] SN RN Member Role: Primary Care Nurse Name: Not on Staff, PCP Position: [facility] Physician (General Medicine) Member Role: PCP Name: Genesis Gutiérrez RN Position: [facility] RN Member Role: Primary Care Nurse Name: Nahomy Orr RN Position: [facility] Hospital Brass Pickler Member Role: Primary Care Nurse Name: Trace Serrato RN Position: [facility] ED RN W/OE and Tasks Member Role: Patient Care Provider Name: Mic Rosales DO Position: [facility] ED Medicine MD Member Role: Admitting Physician Address: Address: [address] [place] [address] [place] [address]- [place] Care Team Related Persons Name: ELIZABETH NASRA Address: home [address] [place] [address] Name: REYNALDO LUCIANO Address: [address] [place] [address] Name: EMILEE LIN Address: [address] [place] [address] Name: NED LIN Address: [address] [place] [address]
--- OUTSIDE RECORDS SUMMARY | 2024-02-18 11:48 | XMS_ITS | Continuity of Care Document ---
Author Organization [facility] Address [address] [place] [address]- Care Team Providers Care Biological Inspector Name Role Phone Jordan CALVERT, Oscar Primary Care Physician Encounter [facility] [place] AC[facility] R [id number] Date(s): 05/06/23 - 06/29/[address] [address]- Encounter Diagnosis Other bursitis, not elsewhere classified, left knee(Final) - Discharge Disposition: A-D/C Home Attending Physician: Anna Perez Admitting Physician: Not on Staff, Admitting MD Referring Physician: Anna Perez Allergies, Adverse Reactions, Alerts No Known Allergies [...] flulaval 3Result Comment: [05/27/2013] Adacel. VIS in Guinean given. Medications Amlodipine By Mouth, Daily, 0 [...] 12/29/22 3:16:00 EDT, Route to Pharmacy Electronically, [id number], Partial fill upon pa... Start Date: 12/29/22 [...] Active 1bilateral, severe per MRI done in [place] May 2012 2left 3of nose per Derm note Social History Social History Type Response Smoking Status Never smoker; Tobacc o user in household: No entered on: 12/04/14 Sex Patient Care team information Care Team Personnel Name: Yamilka Meza RN Position: [facility] RN Member Role: Primary Care Nurse Name: Genesis Gutiérrez RN [facility] RN Member Role: Primary Care Nurse Name: Oscar Ortega MD Position: Reference Physician Member Role: PCP Address: Address: [address] [place], [place] [address] Name: Nahomy Orr RN Position: [facility] Production Generalist Member Role: Primary Care Nurse Care Team Related Persons Name: NASRA JOHNSON Address: home [address] [place] [address] Name: REYNALDO LUCIANO Address: [address] [place] [address] Name: CESAR LIN Address: [address] [place] [address] Name: NED LIN Address: [address] [place] [address]
--- OUTSIDE RECORDS SUMMARY | 2024-02-18 11:48 | XMS_ITS | Continuity of Care Document ---
Author Organization [facility] Address [address] [facility] [place] [place] [address]- Care Team Providers Care Olap Developer Name Role Phone Ericka Landis MD Primary Care Physician Encounter [facility] [place] Date(s): 12/15/19 - 02/19/20 [facility] [address] [facility] [place] [address]- [facility] Attending Physician: Judit Allison MD Admitting Physician: Judit Allison MD Referring Physician: Ericka [...] Charline interpreting. No contraindications noted. Remains at [facility] x next 20 minutes. 2Result Comment: [05/27/2013] flulaval 3Result Comment: [05/27/2013] Adacel. VIS in Slovenian given. Medications CPAP Machine Auto CPAP 01-04, [...] Active 1bilateral, severe per MRI done in [place] May 2012 2left 3of nose per Derm note Social History Social History Type Response Smoking Status Never smoker; Tobacc o user in household: No entered on: 12/04/14 Sex
[2024-02-18 11:58] VITALS: BP 173/73; PULSE 34; RESP 14; O2SAT 97
--- NOTE | 2024-02-18 11:58 | PC.NURSE ---
VS updated. Pt remains asymptomatic - denies any lightheadedness, dizziness, N/V. BP remains elevated 173/73.
[2024-02-18 12:11] LABS: Prothrombin Time 11.8 SEC (11.1-13.3)
[2024-02-18 13:39] VITALS: BP 177/62; PULSE 32; RESP 14; O2SAT 98
[2024-02-18 14:40] VITALS: BP 177/62; PULSE 32; RESP 14; TEMP 36.4; O2SAT 98
== END 2024-02-18 14:41 | disposition short-term general hospital (02) ==
PROVIDERS: Registered Nurse Emergency; Emergency Provider Emergency Medicine; PCP Internal Medicine
DX: I44.2 Atrioventricular block, complete (principal); I49.9 Cardiac arrhythmia, unspecified; R00.2 Palpitations; Z79.899 Other long term (current) drug therapy
CPT/HCPCS: 36415; 80053; 83735; 84484; 85025; 85610; 93005; 99285

== ENCOUNTER → 2024-02-18 11:46 | Outpatient (BNV) | payer OTHER, SELFPAY | PROVIDERS: Emergency Provider Emergency Medicine; PCP Internal Medicine; Visit Provider Internal Medicine | DX: I44.2 Atrioventricular block, complete (principal) | CPT/HCPCS: 93010; 99284 ==

== ENCOUNTER 2024-04-26 14:31 | Outpatient (AMB) | payer OTHER, SELFPAY ==
--- NOTE | 2024-04-26 14:34 | A.OFFVIS_ITS ---
Vital Signs 04/26/24 14:36 Height 5 ft 4 in Weight 219 lb 5.759 oz BMI 37.6 BP 132/70 Blood Pressure Location Lt brachial Position Sitting Pulse 60 Pulse Source Pulse Oximeter Pulse Oximetry (%) 99 Oxygen Delivery Method Room Air Intake Visit Reasons: Obstructive sleep apnea Chicken Handler Required: No Allergies No Known Allergies Allergy (Verified 04/26/24 14:38) HPI Comments Details: The patient is a 68 y/o woman with a history of CATIE presenting for an evaluation. She was having daytime drowsiness and snorring. She underwent a PSG demonstrating CATIE and was started on CPAP. She tried it, but felt like the pressures were too high. She could not tolerate it and returned it. In the meantime, she was having Chest pressure and was referred to cardiology. She has an appt early February. She presents today with persietent daytime drowsiness and would like to reattempt the use of CPAP. The pamtient has an EPWORTH score of 11.24. In the meantime, it was noted that her HR was only 35 and her blood pressure stable. She denied any dizziness, although, some BOUDREAUX. I briefly ambulated her and HR only ravin to 38. We had her get an EKG where appeared to be in a junctional rhythm with high degree block. I did communicate with cardiology and recommenened transferring to the ED. We had out nurse transfer her to the ED. She will have her cardiac issues dealt with and then we will have her go for an inpatient PSG with pulmonary follow up. 04/26/2024 the patient is here for a pulmonary follow-up visit. Since we last spoke she did go to the ER she ended up getting a pacemaker for high-degree heart block. She still healing from the pacemaker placement. She still has significant daytime drowsiness. Her Mcclelland score continues to be elevated 06/19. She was supposed to have sleep study but because of all the different circumstances she has not had 1 as of yet. I will go ahead and order 1. In the meantime I did get further information that she had a CPAP machine through [facility]. Therefore I put an order in to see if they are able to give her another CPAP machine without having to get all the sleep study just to facilitate the process specially with her significant cardiovascular risk factors. The patient did have difficulties in the past because of the elevated pressures. I did set machine at a low pressure and she will bring it in to be able to adjusted accordingly. [facility] Medical History (Updated 04/26/24 @ 20:41 by Kris Brown MD) Chronic rhinitis CATIE (obstructive sleep apnea) Family History (Updated 02/18/24 @ 11:47 by Jak Byrnes MD) Mother Hypertension Social History (Updated 02/18/24 @ 10:07 by GLADYS Young) Patient Tobacco Use Status: Never used Tobacco Review of Systems Const Reports daytime sleepiness and Reports snoring Eyes Reports no additional complaints ENT Denies vertigo, Denies dizziness and Reports nasal congestion Card Denies chest pain and Reports dyspnea on exertion Resp Reports dyspnea on exertion, Reports snoring and Denies wheezing GI Reports no additional complaints Musc Reports no additional complaints Skin/Breast Denies rash Neuro Denies vertigo and Denies dizziness Aller/Immun Denies wheezing Physical Exam Vital Signs: Last Vital Signs Pulse 60 04/26/24 14:36 BP 132/70 04/26/24 14:36 Pulse Ox 99 04/26/24 14:36 Oxygen Delivery Method Room Air 04/26/24 14:36 BMI result Body Mass Index 37.6 Last Vital Signs Temp 97.5 F 02/18/24 11:20 Pulse 36 L 02/18/24 11:20 Resp 12 02/18/24 11:20 BP 176/76 H 02/18/24 11:20 Pulse Ox 99 02/18/24 11:20 O2 Del Method Room Air 02/18/24 11:20 BMI result Body Mass Index 37.1 Const General: comfortable and no acute distress Orientation/consciousness: patient oriented x3 HEENT Other: Unremarkable Head: Yes normal to inspection Neck Neck: Yes normal visual inspection Chest Chest palpation & inspection: normal inspection of the chest Resp Effort & Inspection: normal respiratory effort Auscultation: clear to auscultation bilaterally Cardio Rate: bradycardic Heart sounds: S1 normal heart sound present, S2 normal heart sound present and no murmurs GI Palpation (GI): Soft to palpation Back/Spine/Pelvis Other: unremarkable Skin General skin exam: no rashes or lesions noted Neuro General: patient oriented x3 Extrem General: Yes normal to inspection Psych Mental Status: mental status grossly normal Assessment & Plan Assessment & Plan (1) CATIE (obstructive sleep apnea): Code(s): G47.33 - Obstructive sleep apnea (adult) (pediatric) Category: Medical (2) Complete heart block: Comment: s/p PM Code(s): I44.2 - Atrioventricular block, complete Category: Medical (3) Chronic rhinitis: Code(s): J31.0 - Chronic rhinitis Category: Medical Plan Needs to start APAP Home PSG is needed to start APAP, AHI 07/19 continue nasay fluticasone F/U 3 months Orders: Orders RT home sleep study Today G47.33 - Obstructive sleep apnea (adult) (pediatric) Coding Level of Care Code Est Pt Level 4 (37052) Diagnoses CATIE (obstructive sleep apnea) G47.33 Complete heart block I44.2 Chronic rhinitis J31.0 Time Spent (min) 17
[2024-04-26 14:36] VITALS: BP 132/70; PULSE 60; O2SAT 99; BMI 37.6
== END 2024-04-26 14:57 | disposition home or self-care (01) ==
PROVIDERS: PCP Internal Medicine; Visit Provider Hospitalist
DX: G47.33 Obstructive sleep apnea (adult) (pediatric) (principal); I44.2 Atrioventricular block, complete; J31.0 Chronic rhinitis
CPT/HCPCS: 99214

== ENCOUNTER → 2024-04-26 14:31 | Outpatient (BNVA) | payer OTHER, SELFPAY | PROVIDERS: PCP Internal Medicine; Visit Provider Hospitalist | DX: G47.33 Obstructive sleep apnea (adult) (pediatric) (principal); I44.2 Atrioventricular block, complete; J31.0 Chronic rhinitis | CPT/HCPCS: 99212 ==

== ENCOUNTER → 2024-06-29 15:07 | Outpatient (REF) | payer OTHER, SELFPAY | LOC: HO.SL 15:07 | PROVIDERS: PCP Internal Medicine; Visit Provider Hospitalist | DX: G47.33 Obstructive sleep apnea (adult) (pediatric) (principal) | CPT/HCPCS: 95806 ==

== ENCOUNTER → 2024-06-29 15:22 | Outpatient (BNV) | payer OTHER, SELFPAY | PROVIDERS: PCP Internal Medicine; Visit Provider Internal Medicine | DX: G47.33 Obstructive sleep apnea (adult) (pediatric) (principal) | CPT/HCPCS: 95806 ==

== ENCOUNTER 2024-08-29 09:58 | Outpatient (AMB) | payer OTHER, SELFPAY ==
[2024-08-29 10:03] VITALS: BP 144/78; PULSE 60; O2SAT 99; BMI 37.1
--- NOTE | 2024-08-29 10:03 | MHC.OFFVIS ---
Vital Signs 08/29/24 10:03 Height 5 ft 4 in Weight 216 lb 0.848 oz BMI 37.1 BP 144/78 H Blood Pressure Location Rt brachial Position Sitting Pulse 60 Pulse Source Pulse Oximeter Pulse Oximetry (%) 99 Oxygen Delivery Method Room Air Intake Visit Reasons: copd Allergies No Known Allergies Allergy (Verified 08/29/24 10:06) HPI Comments Details: The patient is a 69 y/o woman with a history of CATIE presenting for an evaluation. She was having daytime drowsiness and snorring. She underwent a PSG demonstrating CATIE and was started on CPAP. She tried it, but felt like the pressures were too high. She could not tolerate it and returned it. In the meantime, she was having Chest pressure and was referred to cardiology. She has an appt early February. She presents today with persietent daytime drowsiness and would like to reattempt the use of CPAP. The pamtient has an EPWORTH score of 11.24. In the meantime, it was noted that her HR was only 35 and her blood pressure stable. She denied any dizziness, although, some BOUDREAUX. I briefly ambulated her and HR only ravin to 38. We had her get an EKG where appeared to be in a junctional rhythm with high degree block. I did communicate with cardiology and recommenened transferring to the ED. We had out nurse transfer her to the ED. She will have her cardiac issues dealt with and then we will have her go for an inpatient PSG with pulmonary follow up. 04/26/2024 the patient is here for a pulmonary follow-up visit. Since we last spoke she did go to the ER she ended up getting a pacemaker for high-degree heart block. She still healing from the pacemaker placement. She still has significant daytime drowsiness. Her Scalf score continues to be elevated 06/19. She was supposed to have sleep study but because of all the different circumstances she has not had 1 as of yet. I will go ahead and order 1. In the meantime I did get further information that she had a CPAP machine through [facility]. Therefore I put an order in to see if they are able to give her another CPAP machine without having to get all the sleep study just to facilitate the process specially with her significant cardiovascular risk factors. The patient did have difficulties in the past because of the elevated pressures. I did set machine at a low pressure and she will bring it in to be able to adjusted accordingly. 08/29/2024 the patient is here for a pulmonary follow-up visit. Overall she is doing okay. She still complains of daytime drowsiness. She also has cardiovascular risk factors. She has had a diagnosis of sleep apnea in the past. She did have a repeat sleep study this time. I did review it with her. Seems that she had an AHI of 10 with significant hypoxia and significant tachycardia. Therefore, the patient will benefit from starting PAP therapy at this time. Although she is concerned that she is very anxious has a hard time sleeping. She has tried multiple medications in the past including gabapentin which was fairly effective but she stopped it because she was concerned about side effects. She also was not trazodone and she did not find that helpful. The only medication that was helpful was Ambien. Although she was concerned because of potential risk of amnesia and she already has a history of dementia in the family. We did talk about holistic approaches with herbal therapies that she can consider. In the meantime I will send or small dose of Ambien in order for her to get comfortable did use the CPAP. [facility] Medical History (Updated 08/29/24 @ 22:25 by Kris Brown MD) Insomnia Chronic rhinitis CATIE (obstructive sleep apnea) Family History (Updated 02/18/24 @ 11:47 by Jak Byrnes MD) Mother Hypertension Social History Patient Tobacco Use Status: Never used Tobacco Review of Systems Const Reports daytime sleepiness and Reports snoring Eyes Reports no additional complaints ENT Denies vertigo, Denies dizziness and Reports nasal congestion Card Denies chest pain and Reports dyspnea on exertion Resp Reports dyspnea on exertion, Reports snoring and Denies wheezing GI Reports no additional complaints Musc Reports no additional complaints Skin/Breast Denies rash Neuro Denies vertigo and Denies dizziness Aller/Immun Denies wheezing Physical Exam Vital Signs: Last Vital Signs Pulse 60 08/29/24 10:03 BP 144/78 H 08/29/24 10:03 Pulse Ox 99 08/29/24 10:03 Oxygen Delivery Method Room Air 08/29/24 10:03 BMI result Body Mass Index 37.1 Last Vital Signs Temp 97.5 F 02/18/24 11:20 Pulse 36 L 02/18/24 11:20 Resp 12 02/18/24 11:20 BP 176/76 H 02/18/24 11:20 Pulse Ox 99 02/18/24 11:20 O2 Del Method Room Air 02/18/24 11:20 BMI result Body Mass Index 37.1 Const General: comfortable and no acute distress Orientation/consciousness: patient oriented x3 HEENT Other: Unremarkable Head: Yes normal to inspection Neck Neck: Yes normal visual inspection Chest Chest palpation & inspection: normal inspection of the chest Resp Effort & Inspection: normal respiratory effort Auscultation: clear to auscultation bilaterally Cardio Rate: bradycardic Heart sounds: S1 normal heart sound present, S2 normal heart sound present and no murmurs GI Palpation (GI): Soft to palpation Back/Spine/Pelvis Other: unremarkable Skin General skin exam: no rashes or lesions noted Neuro General: patient oriented x3 Extrem General: Yes normal to inspection Psych Mental Status: mental status grossly normal Assessment & Plan Assessment & Plan (1) CATIE (obstructive sleep apnea): Code(s): G47.33 - Obstructive sleep apnea (adult) (pediatric) Category: Medical (2) Complete heart block: Comment: s/p PM Code(s): I44.2 - Atrioventricular block, complete Category: Medical (3) Chronic rhinitis: Code(s): J31.0 - Chronic rhinitis Category: Medical (4) Insomnia: Code(s): G47.00 - Insomnia, unspecified Category: Medical Qualifiers: Insomnia type: primary Qualified Code(s): F51.01 - Primary insomnia Plan Needs to start APAP start ambien as needed in order to tolerate PAP therapy consider herbal remidies for sleep hygiene continue nasay fluticasone F/U 4 months Medications: New zolpidem (Ambien) 5 mg PO BEDTIME PRN 30 tabs 3RF sleep 30 days Coding Level of Care Code Est Pt Level 4 (90616) Complex EM visit Add On G2211 Diagnoses CATIE (obstructive sleep apnea) G47.33 Complete heart block I44.2 Chronic rhinitis J31.0 Primary insomnia F51.01 Insomnia type: primary Time Spent (min) 17
--- OUTSIDE RECORDS SUMMARY | 2024-08-29 10:33 | XMS_ITS | Encounter Summary ---
Author Organization [facility] Address [address] [place] [address] Care Team Providers Care Group Director Experience Name Role Phone Yoselyn Lim MD Primary Care Provider Unavail able Radha Espinoza DO Unavailable Unavailable Oscar Ortega MD Primary Care Provider [phone] [facility], Pcp Primary Care Provider UnavailCary Deleon MD Unavailable [phone] Oscar Ortega MD Primary Care Provider [phone] Encounter Details Date Type Department Care Team Description 03/01/2020 Dog Warden Report Medical Records [address] [place] [id number] [place] [address] Orthopedic, Surgeons Social History Tobacco Use Types Packs/Day Years Used Date Smoking Tobacco: Never Smokeless Tobacco: Never Alcohol Use Standard Drinks/Week Comments No 0 (1 standard drink = 0.6 oz pur e alcohol) Sex Assigned at Date Recorded Not on file Job Start Date Occupation Industry Not on file Not on file Not on file documented as of this encounter Plan of Treatment Not on file documented as of this encounter Visit Diagnoses Not on filedocumented in this encounter Care Teams Group Director Experience Relationship Specialty Start Date End Date Yoselyn Lim MD PCP - General Internal Medicine 06/15/19 06/24/21 Oscar Ortega MD [address] [place] [address] PCP - General Internal Medicine 06/25/21 07/08/21 [facility], Pcp [address] [place] [address] PCP - General Internal Medicine 07/09/21 10/17/21 Oscar Ortega MD [address] [place] [address] PCP - General Internal Medicine 10/18/21 Radha Espinoza DO 06/15/19 06/24/21 Cary Claros MD [address] [place] [address] Specialist Neurosurgery 07/09/21 documented as of this encounter
--- OUTSIDE RECORDS SUMMARY | 2024-08-29 10:33 | XMS_ITS | Encounter Summary ---
Author Organization [facility] Address [address] [place] [address] Care Team Providers Care Press Helper Name Role Phone Cary Claros MD Unavailable [phone] Oscar Ortega MD Primary Care Provider [phone] Reason for Visit * Reason Onset Date Comments Faxed Order 12/24/2023 [facility] Encounter Details Date Type Department Care Team Description 12/24/2023 Telephone Adult Medicine [address] [address] Oscar Ortega MD [address] [place] [address] Faxed Order ([facility]) Social History Tobacco Use Types Packs/Day Years Used Date Smoking Tobacco: Never Smokeless Tobacco: Never Alcohol Use Standard Drinks/Week Comments No 0 (1 standard drink = 0.6 oz pur e alcohol) Sex Assigned at Date Recorded Not on file Job Start Date Occupation Industry Not on file Not on file Not on file documented as of this encounter Miscellaneous Notes * Telephone Encounter - EliasvolodymyrDenise Alves - 12/24/2023 8:54 AM EDT Faxed order received by [facility]. Order placed in Oscar Ortega bin for signature. Please fax back to [phone] after completion. documented in this encounter Plan of Treatment Not on file documented as of this encounter Visit Diagnoses Not on filedocumented in this encounter Care Teams Press Helper Relationship Specialty Start Date End Date Oscar Ortega MD [address] [place] [address] PCP - General Internal Medicine 10/18/21 Cary Claros MD 175 [facility] [address] [place] [address] Specialist Neurosurgery 07/09/21 documented as of this encounter
--- OUTSIDE RECORDS SUMMARY | 2024-08-29 10:33 | XMS_ITS | Encounter Summary ---
[facility] Organization [facility] Address [address] [place] [address] Care Team Providers Care Blindstitch Lapel Padder Name Role Phone Cary Claros MD Unavailable [phone] Oscar Ortega MD Primary Care Provider [phone] Encounter Details Date Type Department Care Team Description 02/05/2023 Ebd Teacher Report Medical Records [address] [place] [address] Precious Crews Social History Tobacco Use Types Packs/Day Years Used Date Smoking Tobacco: Never Smokeless Tobacco: Never Alcohol Use Standard Drinks/Week Comments No 0 (1 standard drink = 0.6 oz pur e alcohol) Sex Assigned at Date Recorded Not on file Job Start Date Occupation Industry Not on file Not on file Not on file COVID-19 Exposure Response Date Recorded In the last 10 days, have yo u been in contact with someone who was confirmed or suspected to have Coronavirus/COVID-19? No / Unsure 01/14/2023 12:53 PM EDT documented as of this encounter Plan of Treatment Not on file documented as of this encounter Visit Diagnoses Not on filedocumented in this encounter Care Teams Blindstitch Lapel Padder Relationship Specialty Start Date End Date Oscar Ortega MD [address] [place] [address] PCP - General Internal Medicine 10/18/21 Cary Claros MD 175 [facility] [address] [place] [address] Specialist Neurosurgery 07/09/21 documented as of this encounter
--- OUTSIDE RECORDS SUMMARY | 2024-08-29 10:33 | XMS_ITS | Encounter Summary ---
Author Organization [facility] Address [address] [place] [address] Care Team Providers Care Air Director Name Role Phone Ericka Landis MD Primary Care Provider Un available Faustino Espinozaabela DO Primary Care Pro vider Unavailable Yoselyn Lim MD Primary Care Provider Unavail able Ericka Landis MD Unavailable Unavaila ble Radha Espinoza DO Unavailable Unavailable Oscar Ortega MD Primary Care Provider [phone] [facility], Pcp Primary Care Provider UnavailCary Dleeon MD Unavailable [phone] Oscar Ortega MD Primary Care Provider [phone] Reason for Visit * Reason Comments E-prescribe Rx Request Encounter Details Date Type Department Care Team Description 08/11/2018 Refill Gastroenterology - [place] [address] [facility] [address] [place] [id number] Fly Siu MD E-prescribe Rx Request Social History Tobacco Use Types Packs/Day Years [...] encounter Miscellaneous Notes * Telephone Encounter - Fly Siu MD - 08/11/2018 11:10 AM EST Omeprazole 40 mg daily , 90 day supply prescribed. * Telephone Encounter - Joseline Howe M.A. - 08/11/2018 10:52 AM EST Please change to 90 day supply/map documented in this encounter Plan of Treatment Not on file documented as of this encounter Visit Diagnoses Not on filedocumented in this encounter Care Teams Air Director Relationship Specialty Start Date End Date Ericka Landis MD PCP - General Internal Medicine 11/04/17 Radha Espinoza DO PCP - General 02/07/19 06/14/19 Yoselyn Lim MD PCP - General Internal Medicine 06/15/19 06/24/21 Oscar Ortega MD [address] [place] [address] PCP - General Internal Medicine 06/25/21 07/08/21 [facility] [address] [place] [address] PCP - General Internal Medicine 07/09/21 10/17/21 Oscar Ortega MD [address] [place] [address] PCP - General Internal Medicine 10/18/21 Ericka Landis MD Internal Medicine 02/07/1906/14 Radha Espinoza DO 06/15/19 06/24/21 Cary Claros MD 175 [facility] [address] [place] [address] Specialist Neurosurgery 07/09/21 documented as of this encounter
--- OUTSIDE RECORDS SUMMARY | 2024-08-29 10:33 | XMS_ITS | Encounter Summary ---
Author Organization [facility] Address [address] [place] [address] Care Team Providers Care Mgmt Specialist Name Role Phone Ericka Landis MD Primary Care Provider Un available Faustino Espinozaabela DO Primary Care Pro vider Unavailable Yoselyn Lim MD Primary Care Provider Unavail able Ericka Landis MD Unavailable Unavaila ble Radha Espinoza DO Unavailable Unavailable Oscar Ortega MD Primary Care Provider [phone] [facility] Primary Care Provider Unavailbarbie e Cary Claros MD Unavailable [phone] Oscar Ortega MD Primary Care Provider [phone] Encounter Details Date Type Department Care Team Description 02/17/2018 Stuffed Casing Tier Report Medical Records [address] [place] [address] Saad Knowles PA-C Social History Tobacco Use Types Packs/Day Years [...] on filedocumented in this encounter Care Teams Mgmt Specialist Relationship Specialty Start Date End Date Ericka Landis MD PCP - General Internal Medicine 11/04/17 Radha Espinoza DO PCP - General 02/07/19 06/14/19 Yoselyn Lim MD PCP - General Internal Medicine 06/15/19 06/24/21 Oscar Ortega MD [address] [place] [address] PCP - General Internal Medicine 06/25/21 07/08/[address] [address] PCP - General Internal Medicine 07/09/21 10/17/21 Oscra Ortega MD [address] [place] [address] PCP - General Internal Medicine 10/18/21 Ericka Landis MD Internal Medicine 02/07/1906/14 Radha Espinoza DO 06/15/19 06/24/21 Cary Claros MD [address] [place] [address] [address] [place] [address] Specialist Neurosurgery 07/09/21 documented as of this encounter
--- OUTSIDE RECORDS SUMMARY | 2024-08-29 10:33 | XMS_ITS | Encounter Summary ---
Author Organization [facility] Address [address] [place] [address] Care Team Providers Care Elastic Cutter Name Role Phone Oscar Ortega MD Primary Care Provider [phone] Reason for Visit * Reason Onset Date Comments Faxed Order 08/02/2024 [facility] Encounter Details Date Type Department Care Team (Late st Contact Info) Description 08/02/2024 Telephone Pediatrics - [place] [address] [place] [address] Oscar Ortega MD [address] [facility] [place] [address] Faxed Order ([facility] ) Social History Tobacco Use Types Packs/Day Years Used Date Smoking Tobacco: Never Smokeless Tobacco: Never Alcohol Use Standard Drinks/Week Comments No 0 (1 standard drink = 0.6 oz pur e alcohol) Sex and Gender Information Value Date Recorded Sex Assigned at Not on file Gender Identity Not on file Sexual Orientation Not on file documented as of this encounter Progress Notes * Lizeth Aguilar MA - 08/02/2024 4:47 PM EST Faxed back * Miri Tamez - 08/02/2024 4:03 PM EST Orders from [facility] placed in Oscar Ortega MD bin. Please complete and fax back to [phone]. Thank you. documented in this encounter Plan of Treatment Upcoming Encounters Date Type Department Care Team (Late st Contact Info) Description 09/14/2024 3:30 PM EST Office Visit Hand Weaver - [place] [address] [place] [address] Oscar Ortega MD [address] [place] [address] documented as of this encounter Visit Diagnoses Not on filedocumented in this encounter Care Teams Elastic Cutter Relationship Specialty Start Date End Date Oscar Ortega MD PCP - General Internal Medicine 06/25/21 documented as of this encounter
--- OUTSIDE RECORDS SUMMARY | 2024-08-29 10:33 | XMS_ITS | Encounter Summary ---
Author Organization [facility] Address [address] [place] [address] Care Team Providers Care Bakery Assistant Name Role Phone Ericka Landis MD Primary Care Provider Un available Sugar BowersoFaustinoRadah DO Primary Care Pro vider Unavailable Yoselyn Lim MD Primary Care Provider Unavail able Ericka Landis MD Unavailable Unavaila ble Radha Espinoza DO Unavailable Unavailable Oscar Ortega MD Primary Care Provider [phone] [facility] Primary Care Provider UnavailCary Deleon MD Unavailable [phone] Oscar Ortega MD Primary Care Provider [phone] Encounter Details Date Type Department Care Team Description 12/30/2018 Release of Information Medical Records [address] [place] [address] Abstract, Provider Social History Tobacco Use Types Packs/Day Years [...] on filedocumented in this encounter Care Teams Bakery Assistant Relationship Specialty Start Date End Date Ericka Landis MD PCP - General Internal Medicine 11/04/17 Radha Espinoza DO PCP - General 02/07/19 06/14/19 Yoselyn Lim MD PCP - General Internal Medicine 06/15/19 06/24/21 Oscar Ortega MD [address] [place] [address] PCP - General Internal Medicine 06/25/21 07/08/[address] [address] PCP - General Internal Medicine 07/09/21 10/17/21 Oscar Ortega MD [address] [place] [address] PCP - General Internal Medicine 10/18/21 Ericka Landis MD Internal Medicine 02/07/1906/14 Radha Espinoza DO 06/15/19 06/24/21 Cary Claros MD [address] [place] [address] [place] [address] Specialist Neurosurgery 07/09/21 documented as of this encounter
--- OUTSIDE RECORDS SUMMARY | 2024-08-29 10:33 | XMS_ITS | Encounter Summary ---
Author Organization [facility] Address [address] [place] [address] Care Team Providers Care Wood Treating Inspector Name Role Phone Cary Claros MD Unavailable [phone] Oscar Ortega MD Primary Care Provider [phone] Encounter Details Date Type Department Care Team Description 05/28/2023 Voltage Inspector Report Medical Records [address] [place] [address] Susan Alves NP Social History Tobacco Use Types Packs/Day Years [...] on filedocumented in this encounter Care Teams Wood Treating Inspector Relationship Specialty Start Date End Date Oscar Ortega MD [address] [place] [address] PCP - General Internal Medicine 10/18/21 Cary Claros MD [address] [facility] [address] [place] [address] Specialist Neurosurgery 07/09/21 documented as of this encounter
--- OUTSIDE RECORDS SUMMARY | 2024-08-29 10:33 | XMS_ITS | Encounter Summary ---
Author Organization [facility] Address [address] [place] [address] Care Team Providers Care Director Of Audiology Name Role Phone Oscar Ortega MD Primary Care Provider [phone] Reason for Visit * Reason Onset Date Comments Fitting for DME 08/02/2024 [facility] Encounter Details Date Type Department Care Team (Late Contact Info) Description 08/02/2024 Telephone Asphalt Spreader - [address] [place] [address] Oscar Ortega MD [address] [place] [address] Fitting for DME ([facility]) Social History Tobacco Use Types Packs/Day Years Used Date Smoking Tobacco: Never Smokeless Tobacco: Never Alcohol Use Standard Drinks/Week Comments No 0 (1 standard drink = 0.6 oz pur e alcohol) Sex and Gender Information Value Date Recorded Sex Assigned at Not on file Gender Identity Not on file Sexual Orientation Not on file documented as of this encounter Progress Notes * Paul Alves - 08/02/2024 2:36 PM EST [facility] [phone] documented in this encounter Plan of Treatment Upcoming Encounters Date Type Department Care Team ([facility] Contact Info) Description 09/14/2024 3:30 PM EST Office Visit Asphalt Spreader - [address] [place], [place] [phone] Oscar Ortega MD [address] [place] [address] documented as of this encounter Visit Diagnoses Not on filedocumented in this encounter Care Teams Director Of Audiology Relationship Specialty Start Date End Date Oscar Ortega MD PCP - General Internal Medicine 06/25/21 documented as of this encounter
--- OUTSIDE RECORDS SUMMARY | 2024-08-29 10:33 | XMS_ITS | Encounter Summary ---
Author Organization [facility] Address [address] [place] [address] Care Team Providers Care Bareback Rider Name Role Phone Cary Claros MD Unavailable [phone] Oscar Ortega MD Primary Care Provider [phone] Reason for Visit * Reason Onset Date Comments Provider Call Back 03/24/2024 Encounter Details Date Type Department Care Team Description 03/24/2024 Telephone Adult Medicine - [address] [id number] Oscar Ortega MD [address] [place] [address] Provider Call Back Social History Tobacco Use Types Packs/Day Years [...] encounter Miscellaneous Notes * Telephone Encounter - Paul Alves - 03/24/2024 10:07 AM EDT Caller requesting call back from provider: Is the caller the patient? NO If caller is not the patient, what is the callers name? Melinda Callers relationship to patient? [facility] If person calling is not the patient themselves, is there a verbal release in FYI or permanent comments for this person: NO Reason for call back: Asking for 03-09-24 office notes to be sent fax [phone] Caller offered to speak with the nurse for assistance: YES Response: Patient offered to speak with nurse for assistance and patient agreed. Message forwarded to nurse. documented in this encounter Plan of Treatment Not on file documented as of this encounter Visit Diagnoses Not on filedocumented in this encounter Care Teams Bareback Rider Relationship Specialty Start Date End Date Oscar Ortega MD [address] [place] [address] PCP - General Internal Medicine 10/18/21 Cary Claros MD [address] [facility] [address] [place] [address] Specialist Neurosurgery 07/09/21 documented as of this encounter
--- OUTSIDE RECORDS SUMMARY | 2024-08-29 10:33 | XMS_ITS | Encounter Summary ---
Author Organization [facility] Address [address] [place] [address] Care Team Providers Care Back Shoe Cutter Name Role Phone Cary Claros MD Unavailable [phone] Oscar Ortega MD Primary Care Provider [phone] Encounter Details Date Type Department Care Team Description 02/04/2023 Roofing Subcontractor Report Medical Records [address] [place], [place] [address] [place] [address] Orthopedic, Surgeons Social History Tobacco Use Types [...] on filedocumented in this encounter Care Teams Back Shoe Cutter Relationship Specialty Start Date End Date Oscar Ortega MD [address] [place] [address] PCP - General Internal Medicine 10/18/21 Cary Claros MD [address] [facility] [address] [place] [address] Specialist Neurosurgery 07/09/21 documented as of this encounter
--- OUTSIDE RECORDS SUMMARY | 2024-08-29 10:33 | XMS_ITS | Encounter Summary ---
Author Organization [facility] Address [address] [place] [address] Care Team Providers Care Pipe Recovery Specialist Name Role Phone Ericka Landis MD Primary Care Provider Un available Faustino Espinozaabela DO Primary Care Pro vider Unavailable Yoselyn Lim MD Primary Care Provider Unavail able Ericka Landis MD Unavailable Unavaila ble Radha Espinoza DO Unavailable Unavailable Oscar Ortega MD Primary Care Provider [phone] [facility] Primary Care Provider UnavailCary Deleon MD Unavailable [phone] Oscar Ortega MD Primary Care Provider [phone] Encounter Details Date Type Department Care Team Description 08/18/2018 Masking Machine Feeder Report Medical Records [address] [place] [address] Terrie Forte MD Social History Tobacco Use Types Packs/Day Years [...] on filedocumented in this encounter Care Teams Pipe Recovery Specialist Relationship Specialty Start Date End Date Ericka Landis MD PCP - General Internal Medicine 11/04/17 Radha Espinoza DO PCP - General 02/07/19 06/14/19 Yoselyn Lim MD PCP - General Internal Medicine 06/15/19 06/24/21 Oscar Ortega MD [address] [place] [address] PCP - General Internal Medicine 06/25/21 07/08/[address] [address] PCP - General Internal Medicine 07/09/21 10/17/21 Oscar Ortega MD [address] [place] [address] PCP - General Internal Medicine 10/18/21 Ericka Landis MD Internal Medicine 02/07/1906/14 Radha Espinoza DO 06/15/19 06/24/21 Cary Claros MD [address] [place] [address] [address] [place] [address] Specialist Neurosurgery 07/09/21 documented as of this encounter
--- OUTSIDE RECORDS SUMMARY | 2024-08-29 10:33 | XMS_ITS | Clinical Summary ---
[facility] Address [address] [place] [address] Care Team Providers Care Dip Tanker Name Role Phone Oscar Ortega MD Primary Care Provider [phone] Allergies No known active allergies Medications Medication Sig Dispensed Refills Start Date End Date Status hydroCHLOROthiazide (HYDRODIURIL) 25 mg tablet Take 1 tablet (25 mg total) by mouth 1 (one) time each day. 04/11/2024 Active levothyroxine (SYNTHROID, LEVOTHROID) 112 mcg tablet TAKE 1 TABLET BY MOUTH THURSDAY THROUGH THURSDAY.NONE ON Thursday03/09/2024 Active omeprazole (PriLOSEC) [address] capsule Take 1 capsule (20 mg total) by mouth 1 (one) time each day. 03/09/2024 Active albuterol sulfate (ProAir RespiClick) 90 mcg/actuation aerosol powdr breath activated Inhale 2 puffs by mouth. 03/09/2024 Active meloxicam (MOBIC) 15 mg tablet Take 1 tablet (15 mg total) by mouth 1 (one) time each day if needed. 03/09/2024 Active acetaminophen (TYLENOL 8 HOUR) 650 mg 8 hr tablet Take 1 tablet (650 mg total) by mouth every 8 (eight) hours if needed. 03/09/2024 Active simethicone (MYLICON) 80 mg chewable tablet Chew 1 tablet (80 mg total). 03/09/2024 Active senna-docusate (PERICOLACE) 8.6-50 mg per tablet Take 1 tablet by mouth. 03/09/2024 03/04/2025 Active fluticasone propionate (FLONASE) 50 mcg/actuation nasal spray INSTILL 1 SPRAY IN EACH NOSRTIL DAILY NEEDED 12/23/2023 Active amoxicillin (AMOXIL) 500 mg capsule Take 1 capsule (500 mg total) by mouth. Active incontinence pad, liner, disp pad 1 Units by Does not apply route at bedtime. 04/09/2023 Active Active Problems Problem Noted Date Diagnosed Date Class 2 severe obesity due t o excess calories with serious comorbidity and body mass index (BMI) of 37.0 to 37.9 in adult 06/29/2024 Anxiety 04/27/2024 Overview (04/27/2024): Follows with psychiatry Hypothyroid 04/27/2024 Insomnia 04/27/2024 Overview (04/27/2024): Prescribed andrew from psychiatry Anup [place] CT CATIE (obstructive sleep apnea) 04/27/2024 Overview (04/27/2024): on cpap Last Assessment & Plan: Patient has only mild obstructive sleep apnea. Her main complaint is insomnia and she has been taking chronic zolpidem. I explained her that the insomnia is not necessarily related to her mild sleep apnea. She tried in the past a CPAP machine and she could not tolerate it and she does not think that she will be able to tolerate it at this time. Because she has hypertension I do think that she would benefit at least with conservative therapy with weight loss reduction but I do think given her chronic insomnia she will benefit from the services of a sleep specialist which is board-certified. I have make a referral to the sleep clinic [facility]. If after that she decided to use a CPAP we will be happy to follow her here. 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 Richardson 05/2019 Last Assessment & Plan: This in detail with Ms. Aldana and her daughter. I believe she is symptomatic from L4-5 stenosis, and though she has significant L4 root compression, her symptoms are more consistent with L5 compression at the lateral recess. She has had no treatment in the last 2 years and we decided upon another round of physical therapy before considering surgery. If she does not improve or if her mobility and pain worsen, she would be a candidate for an L4-5 decompression with interbody fusion and fixation. We discussed this in detail using a spine model and can discuss it again in the future if we proceed down the road. Status post bilateral knee replacements 07/12/20 19 GERD (gastroesophageal reflux disease) 9 Primary osteoarthritis involving multiple joints 01/12/2018 Dementia 11/17/2017 Encounters Date Type Department Care Team Description 08/02/2024 Telephone Pediatrics - [address] [place] [address] Oscar Ortega MD Faxed Order ([facility] ) 08/02/2024 Telephone Lead Java Software Engineer - [address] [place] [address] Oscar Ortega MD Fitting for DME ([facility]) from Last 3 Months Immunizations Name Administration Dates Next Due Influenza trivalent, 0.5mL ( Fluad) 65yo and older 04/09/2023 Influenza trivalent, with pr eservative (Fluzone; Afluria) 6mo and older 06/20/2016,09/06/2014,05/27/2013 Moderna SARS-CoV-2 COVID-19, mRNA, LNP-S, preservative free 11/28/2020,10/31/2020 Pneumococcal conjugate 20 va lent (Prevnar 20, PCV 20) 2mo and older 04/09/2023 Pneumococcal polysaccharide 23 valent (Pneumovax 23) 2yo and older 07/13/2019 Tdap Tetanus diptheria acell ular pertussis (Boostrix; Adacel) 7yo and older 03/02/2020,05/27/2013 Surgical History Surgery Date Site/Laterality Comments TOTAL KNEE ARTHROPLASTY Bilateral PROCEDURE: HISTORICAL TOTAL KNEE REPLACE BREAST LUMPECTOMY PROCEDURE: ---- BREAST LUMP BIOPSY ----; COMMENT: bilateral ESOPHAGOGASTRODUODENOSCOPY 03/03/2018 PROCEDURE: WA ESOPHAGOGASTRODUODENOSCOPY TRANSORAL DIAGNOSTIC; COMMENT: normal Medical History Medical History Date Comments Breast mass DX:Breast mass; COMMENT: on tamoxifen Insomnia DX:Insomnia Anxiety DX:Anxiety Hypothyroid DX:Hypothyroid CATIE (obstructive sleep apnea) DX :CATIE (obstructive sleep apnea); COMMENT: on cpap Primary osteoarthritis invol ving multiple joints 01/12/2018 DX:Primary osteoarthritis in volving multiple joints Obesity 01/12/2018 DX:Obesity History of knee replacement 07/28/2018 DX:H istory of knee replacement GERD (gastroesophageal reflu x disease) 10/18/2018 DX:GERD (gastroesophageal re flux disease) Dementia (CMS/HCC) DX:Dementia ( HCC) Family History Medical History Relation Name Comments Lung cancer Brother 1 Other: cancer unknown Brother 2 Diabetes Father Alzheimer's disease Mother Breast cancer Sister 1 Diabetes Sister 1 Alzheimer's disease Sister 2 Alzheimer's disease Sister 3 Relation Name Status Comments Brother 1 Brother 2 Brother 3 Alive Brother 4 Alive Brother 5 Alive Brother 6 Alive Brother 7 Alive Brother 8 Alive Father Maternal Grandfather Maternal Grandmother Mother Paternal Grandfather Paternal Grandmother Sister 1 Alive Sister 2 Alive Sister 3 Alive Sister 4 Alive Sister 5 Alive Sister 6 Alive Sister 7 Alive Social History Tobacco Use Types Packs/Day Years Used Date Smoking Tobacco: Never Smokeless Tobacco: Never Alcohol Use Standard Drinks/Week Comments No 0 (1 standard drink = 0.6 oz pur e alcohol) Sex and Gender Information Value Date Recorded Sex Assigned at Not on file Gender Identity Not on file Sexual Orientation Not on file Obstetrics History Last Filed Vital Signs Vital Sign Reading Time Taken Comments Blood Pressure 133/75 03/09/2024 1:40 PM EDT Pulse 62 03/09/2024 1:40 PM EDT Temperature - - Respiratory Rate - - Oxygen Saturation 98% 01/14/2023 1:06 PM EDT room air Inhaled Oxygen Concentration - - Weight 100 kg (221 lb 3.2 oz) 03/09/2024 1:40 PM EDT Height 165.1 cm (5' 5 ) 03/09/2024 1:40 PM EDT Body Mass Index 36.81 03/09/2024 1:40 PM EDT Plan of Treatment Upcoming Encounters Date Type Department Care Team (Late st Contact Info) Description 09/14/2024 3:30 PM EST Office Visit Lead Java Software Engineer - [address] [place] [address] Oscar Ortega MD [address] [place] [address] Health Maintenance Due Date Last Done Comments Breast Cancer Screening 1955 Zoster Vaccines (1 of 2) 2004 RSV Immunization Patients 60+ Years Old (1 - Risk 60-74 years 1-dose series) 2014 Falls Risk Assessment 06/29/2022 Social Influencers of Health Screening 06/29/2022 COVID-19 Vaccine ( - season) 2024 11/28/2020, 10/31/2020 Influenza Vaccine (#1) 2024 , 06/20/2016, 09/06/2014, Additional history exists Depression Screening 10/07/2024 10/08/2023 Hypertension/CHF/CAD Annual BMP Blood Test 10/07/2024 10/08/2023 Colorectal Cancer Screening: Colonoscopy 10/28/2026 10/28/2016 Cholesterol Screening (Lipid Panel) 10/07/2028 10/08/2023 DTaP,Tdap,and Td Vaccines (3 - Td or Tdap) 03/02/2030 03/02/2020, 05/27/2013 Osteoporosis Screening (Bone Density Screening) 08/03/2030 08/03/2020 Hepatitis C Screening Completed 12/15/2018 Pneumococcal Vaccine: 65+ Years Completed 04/09/2023, 07/13/2019 HIB Vaccines Aged Out No longer eligi ble based on patient's age to complete this topic HPV Vaccines Aged Out No longer eligi ble based on patient's age to complete this topic Hepatitis A Vaccines Aged Out No long er eligible based on patient's age to complete this topic Hepatitis B Vaccines Aged Out No long er eligible based on patient's age to complete this topic IPV Vaccines Aged Out No longer eligi ble based on patient's age to complete this topic MMR Vaccines Aged Out No longer eligi ble based on patient's age to complete this topic Meningococcal ACWY Vaccine Aged Out N o longer eligible based on patient's age to complete this topic RSV Immunization Patients Under 20 months Aged Out No longer eligible based on patient's age to complete this topic Varicella Vaccines Aged Out No longer eligible based on patient's age to complete this topic Procedures Procedure Name Priority Date/Time Associated Diagnosis Comments DEPRESSION SCREENING Routine 10/08/2023 ANNUAL BMP BLOOD TEST Routine 10/08/2023 LIPID PANEL Routine 10/08/2023 DXA BONE DENSITY STUDY 1+ SITS AXIAL SKEL Routine 08/03/2020 4:06 PM EST Asymptomatic menopausal state HEPATITIS C SCREENING Routine 12/15/2018 COLONOSCOPY Routine 10/28/2016 from Last 3 Months or Most Recently Relevant to Health Maintenance Results * Annual BMP Blood Test (10/08/2023) Pathologist [facility] Annual BMP Blood Test abstracted Historical Provider MD ELIE GEE E * Depression Screening (10/08/2023) Pathologist [facility] Depression Screening abstracted Historical Provider MD ELIE GEE E * Lipid panel (10/08/2023) [facility] LDL/HDL Ratio 4 Triglycerides 97 mg/dL Cholesterol 207 mg/dL HDL 57 mg/dL LDL Cholesterol 131 mg/dL Blood Venous blood specimen / Unknown Historical Provider LAB BLOOD ORDERAB LES * DXA BONE DENSITY STUDY 1+ SITS AXIAL SKEL (08/03/2020 4:06 PM EST) Anatomical Region Laterality Modality Bone Densitometr y 03/02/2020 3:24 PM EDT Narrative 08/03/2020 5:13 PM EST BONE DENSITY SCAN (DEXA) ? FINDINGS: Lumbar Spine T-score is 1.0. ?? (SD relative to 20-29 y/o adult) Z-score is 2.8. ??(SD relative to age matched peers) This is considered normal by WHO criteria. Left Hip T-score is 0.4. Z-score is 1.9. This is considered normal by WHO criteria. Comparison: None Lateral view of the thoracolumbar spine shows no significant compression deformities. IMPRESSION: IMPRESSION: Normal bone mineral density by WHO criteria. [facility] Department of Internal Medicine recommends using National Osteoporosis Foundation (NOF) guidelines in treatment decisions related to osteoporosis. NOF guidelines suggest considering treatment for postmenopausal women and men aged 50 or older presenting with the following: History of hip or vertebral fracture. T-score = -2.5 (DXA) at the femoral neck, total hip, or spine, after appropriate evaluation to exclude secondary causes. Low bone mass (T-score between -1.0 and -2.5 at the femoral neck or spine) AND a 10-year probability of a hip fracture = 3% OR a 10-year probability of a major osteoporosis-related fracture = 20% based on the [place]-adapted WHO algorithm Please note that all treatment decisions require clinical judgment and consideration of individual patient factors, including patient preferences, co-morbidities, previous drug use, risk factors not captured in the FRAX model (e.g., frailty, falls, vitamin D deficiency, increased bone turnover, interval significant decline in bone density) and possible under- or over-estimation of fracture risk by FRAX. Optional alternative screening schedule based on travis Li., [facility] August 14, 2011 for patients with osteopenia (based on hip BMD T-score) is as follows: * ??advanced osteopenia (T scores -2.00 to -2.49), BMD testing every year * ??moderate osteopenia (T scores -1.50 to -1.99), BMD testing every 5 years mild osteopenia or normal BMD (T scores -1.50 and higher), BMD testing every 15 years Procedure Note Natasha Robb MD - 07/15/2022 BONE DENSITY SCAN (DEXA) FINDINGS: Lumbar Spine T-score is 1.0. (SD relative to 20-29 y/o adult) Z-score is 2.8. (SD relative to age matched peers) This is considered normal by WHO criteria. Left Hip T-score is 0.4. Z-score is 1.9. This is considered normal by WHO criteria. Comparison: None Lateral view of the thoracolumbar spine shows no significant compressiondeformities. IMPRESSION: IMPRESSION: Normal bone mineral density by WHO criteria. [facility] Department of Internal Medicine recommendsusing National Osteoporosis Foundation (NOF) guidelines in treatment decisions related toosteoporosis. NOF guidelines suggest considering treatment for postmenopausal women and menaged 50 or older presenting with the following: History of hip or vertebral fracture. T-score = -2.5 (DXA) at the femoral neck, total hip, or spine, afterappropriate evaluation to exclude secondary causes. Low bone mass (T-score between -1.0 and -2.5 at the femoral neck or spine)AND a 10-year probability of a hip fracture = 3% OR a 10-year probability of a majorosteoporosis-related fracture = 20% based on the [place]-adapted WHO algorithm Please note that all treatment decisions require clinical judgment andconsideration of individual patient factors, including patient preferences, co- morbidities,previous drug use, risk factors not captured in the FRAX model (e.g., frailty, falls, vitaminD deficiency, increased bone turnover, interval significant decline in bone density) andpossible under- or over-estimation of fracture risk by FRAX. Optional alternative screening schedule based on travis Li., [place] 2011 for patients with osteopenia (based on hip BMD T-score) is as follows: * advanced osteopenia (T scores -2.00 to -2.49), BMD testing every year * moderate osteopenia (T scores -1.50 to -1.99), BMD testing every 5years mild osteopenia or normal BMD (T scores -1.50 and higher), BMD testingevery 15 years Rae HAYES IMG DXA PROCEDURES * Hepatitis C Screening (12/15/2018) [facility] Hepatitis C Screening negative Historical Provider MD ELIE Toribio * Colonoscopy (10/28/2016) [facility] Colonoscopy abstracted. normal Anatomical Region Laterality Modality Other Historical Provider MD ELIE Toribio from Last 3 Months or Most Recently Relevant to Health Maintenance Care Teams Dip Tanker Relationship Specialty Start Date End Date Oscar Ortega MD PCP - General Internal Medicine 06/25/21
--- OUTSIDE RECORDS SUMMARY | 2024-08-29 10:33 | XMS_ITS | Encounter Summary ---
Author Organization [facility] Address [address] [place] [address] Care Team Providers Care Mental Health Associate Name Role Phone Radha Espinoza DO Primary Care Pro vider Unavailable Yoselyn Lim MD Primary Care Provider Unavail able Ericka Landis MD Unavailable Unavaila ble Radha Espinoza DO Unavailable Unavailable Oscar Ortega MD Primary Care Provider [phone] [facility], Pcp Primary Care Provider UnavailCary Deleon MD Unavailable [phone] Oscar Ortega MD Primary Care Provider [phone] Reason for Visit * Reason Onset Date Comments TEST RESULTS 04/07/2019 Encounter Details Date Type Department Care Team Description 04/07/2019 Telephone Adult [address] [address] Ericka Landis MD TEST RESULTS Social History Tobacco Use Types Packs/Day Years [...] encounter Miscellaneous Notes * Telephone Encounter - Vanessa Nguyen M.A. - 04/07/2019 3:12 PM EDT Mr Ricardo has them come in for a follow up to discuss MRI results ( patient never came back) Please have patient schedule a follow up * Telephone Encounter - Bob Todd C.M.A. - 04/07/2019 2:55 PM EDT Pt's daughter would like to discuss results of MRI done on 11/12/18 * Telephone Encounter - Susanna Yarbrough - 04/07/2019 2:18 PM EDT Inform patient: ANY URGENT OR ABNORMAL RESULTS WIILL RESULT IN A CALL BACK TO THE PATIENT [place]. Type of test: : lab work Date test was performed: 12/15/18 Where was the test performed: [facility] Who ordered this test?: Radha Akers, DO Is the doctor here today?: YES Can the message wait until the doctor returns?: YES IF PATIENT'S PCP IS NOT IN INSTRUCT PATIENT THAT THEY WILL RECEIVE A CALL BACK WHEN THE PCP IS IN THE OFFICE NEXT. documented in this encounter Plan of Treatment Not on file documented as of this encounter Visit Diagnoses Not on filedocumented in this encounter Care Teams Mental Health Associate Relationship Specialty Start Date End Date Radha Espinoza DO PCP - General 02/07/19 06/14/19 Yoselyn Lim MD PCP - General Internal Medicine 06/15/19 06/24/21 Oscar Ortega MD [address] [place] [address] PCP - General Internal Medicine 06/25/21 07/08/21 [facility], Pcp [address] [place] [address] PCP - General Internal Medicine 07/09/21 10/17/21 Oscar Ortega MD [address] [place] [address] PCP - General Internal Medicine 10/18/21 Ericka Landis MD Internal Medicine 02/07/1906/14 Radha Espinoza DO 06/15/19 06/24/21 Cary Claros MD [address] [place] [address] [address] [place] [address] Specialist Neurosurgery 07/09/21 documented as of this encounter
--- OUTSIDE RECORDS SUMMARY | 2024-08-29 10:33 | XMS_ITS | Encounter Summary ---
Author Organization [facility] Address [address] [place] [address] Care Team Providers Care Foundation Coordinator Name Role Phone Cary Claros MD Unavailable [phone] Oscar Ortega MD Primary Care Provider [phone] Encounter Details Date Type Department Care Team Description 02/18/2024 Zinc Furnace Charger Report Medical Records [address] [place] [address] Kris Brown MD Social History Tobacco Use Types Packs/Day [...] on filedocumented in this encounter Care Teams Foundation Coordinator Relationship Specialty Start Date End Date Oscar Ortega MD [address] [place] [address] PCP - General Internal Medicine 10/18/21 Cary Claros MD [address] [facility] [address] [place] [address] Specialist Neurosurgery 07/09/21 documented as of this encounter
--- OUTSIDE RECORDS SUMMARY | 2024-08-29 10:33 | XMS_ITS | Encounter Summary ---
Author Organization [facility] Address [address] [place] [address] Care Team Providers Care Modern Greek Studies Professor Name Role Phone Ericka Landis MD Primary Care Provider Un available Faustino Espinozaabela DO Primary Care Pro vider Unavailable Yoselyn Lim MD Primary Care Provider Unavail able Ericka Landis MD Unavailable Unavaila ble Radha Espinoza DO Unavailable Unavailable Oscar Ortega MD Primary Care Provider [phone] [facility] Primary Care Provider UnavailCary Deleon MD Unavailable [phone] Oscar Ortega MD Primary Care Provider [phone] Encounter Details Date Type Department Care Team Description 12/02/2017 Release of Information Medical Records [address] [place] [address] Abstract, Provider Social History Tobacco Use Types [...] on filedocumented in this encounter Care Teams Modern Greek Studies Professor Relationship Specialty Start Date End Date Ericka Landis MD PCP - General Internal Medicine 11/04/17 Radha Espinoza DO PCP - General 02/07/19 06/14/19 Yoselyn Lim MD PCP - General Internal Medicine 06/15/19 06/24/21 Oscar Ortega MD [address] [place] [address] PCP - General Internal Medicine 06/25/21 07/08/[address] [address] PCP - General Internal Medicine 07/09/21 10/17/21 Oscar Ortega MD [address] [place] [address] PCP - General Internal Medicine 10/18/21 Ericka Landis MD Internal Medicine 02/07/1906/14 Radha Espinoza DO 06/15/19 06/24/21 Cary Claros MD [address] [place] [address] [place] [address] Specialist Neurosurgery 07/09/21 documented as of this encounter
--- OUTSIDE RECORDS SUMMARY | 2024-08-29 10:33 | XMS_ITS | Encounter Summary ---
Author Organization [facility] Address [address] [place] [address] Care Team Providers Care Steward/Stewardess Railroad Dining Car Name Role Phone Radha Espinoza DO Primary Care Pro vider Unavailable Yoselyn Lim MD Primary Care Provider Unavail able Ericka Landis MD Unavailable Unavaila ble Radha Espinoza DO Unavailable Unavailable Oscar Ortega MD Primary Care Provider [phone] [facility], Pcp Primary Care Provider UnavailCary Deleon MD Unavailable [phone] Oscar Ortega MD Primary Care Provider [phone] Encounter Details Date Type Department Care Team Description 06/07/2019 Hospital Medical Records [address] [place] [address] Manuel Richardson DO Social History Tobacco Use Types Packs/Day Years [...] on filedocumented in this encounter Care Teams Steward/[employer] Dining Car Relationship Specialty Start Date End Date Radha Espinoza DO PCP - General 02/07/19 06/14/19 Yoselyn Lim MD PCP - General Internal Medicine 06/15/19 06/24/21 Oscar Ortega MD [address] [place] [address] PCP - General Internal Medicine 06/25/21 07/08/21 [facility], [address] [address] PCP - General Internal Medicine 07/09/21 10/17/21 Oscar Ortega MD [address] [place] [address] PCP - General Internal Medicine 10/18/21 Ericka Landis MD Internal Medicine 02/07/1906/14 Radha Espinoza DO 06/15/19 06/24/21 Cary Claros MD [address] [place] [address] [address] [place] [address] Specialist Neurosurgery 07/09/21 documented as of this encounter
--- OUTSIDE RECORDS SUMMARY | 2024-08-29 10:33 | XMS_ITS | Encounter Summary ---
Author Organization [facility] Address [address] [place] [address] Care Team Providers Care Technical Sales Advisor Name Role Phone Ericka Landis MD Primary Care Provider Un available Faustino Espinozaabela DO Primary Care Pro vider Unavailable Yoselyn Lim MD Primary Care Provider Unavail able Ericka Landis MD Unavailable Unavaila ble Radha Espinoza DO Unavailable Unavailable Oscar Ortega MD Primary Care Provider [phone] [facility] Primary Care Provider UnavailCary Deleon MD Unavailable [phone] Oscar Ortega MD Primary Care Provider [phone] Reason for Visit * Reason Onset Date Comments Provider Call Back 03/26/2018 Encounter Details Date Type Department Care Team Description 03/26/2018 Telephone Adult [address] [address] Ericka Landis MD Provider Call Back Social History Tobacco Use [...] encounter Miscellaneous Notes * Telephone Encounter - Jazzy Maharaj M.A. - 03/26/2018 1:49 PM EDT FYI to Dr Landis * Telephone Encounter - Gogo Lamont - 03/26/2018 12:16 PM EDT Patient would like to know if was aware of patient having an appt with [facility] to receive any notes. Patient only speaks montenegrin. documented in this encounter Plan of Treatment Not on file documented as of this encounter Visit Diagnoses Not on filedocumented in this encounter Care Teams Technical Sales Advisor Relationship Specialty Start Date End Date Ericka Landis MD PCP - General Internal Medicine 11/04/17 Radha Espinoza DO PCP - General 02/07/19 06/14/19 Yoselyn Lim MD PCP - General Internal Medicine 06/15/19 06/24/21 Oscar Ortega MD [address] [place] [address] PCP - General Internal Medicine 06/25/21 07/08/21 [facility] [address] [place] [address] PCP - General Internal Medicine 07/09/21 10/17/21 Oscar Ortega MD [address] [place] [address] PCP - General Internal Medicine 10/18/21 Ericka Landis MD Internal Medicine 02/07/1906/14 Radha Espinoza DO 06/15/19 06/24/21 Cary Claros MD [address] [place] [address] Specialist Neurosurgery 07/09/21 documented as of this encounter
--- OUTSIDE RECORDS SUMMARY | 2024-08-29 10:33 | XMS_ITS | Encounter Summary ---
Author Organization [facility] Address [address] [place] [address] Care Team Providers Care Slag Production Worker Name Role Phone Yoselyn Lim MD Primary Care Provider Unavail able Radha Espinoza DO Unavailable Unavailable Oscar Ortega MD Primary Care Provider [phone] [facility], Pcp Primary Care Provider UnavailCary Deleon MD Unavailable [phone] Oscar Ortega MD Primary Care Provider [phone] Reason for Visit * Reason Onset Date Comments Prior Authorization 05/03/2021 MRI lumbar S [place] Encounter Details Date Type Department Care Team Description 05/03/2021 Telephone Internal Medicine - [address], [address] [place] [address] Bonita Carmen NP Prior Authorization (MRI lumbar SPine) Social History Tobacco Use Types Packs/Day Years Used Date Smoking Tobacco: Never Smokeless Tobacco: Never Alcohol Use Standard Drinks/Week Comments No 0 (1 standard drink = 0.6 oz pur e alcohol) Sex Assigned at Date Recorded Not on file Job Start Date Occupation Industry Not on file Not on file Not on file COVID-19 Exposure Response Date Recorded In the last month, have you been in contact with someone who was confirmed or suspected to have Coronavirus / COVID-19? No / Unsure 04/30/2021 11:14 AM EDT documented as of this encounter Miscellaneous Notes * Telephone Encounter - Ruth Ann Russellard - 05/06/2021 3:17 PM EDT [facility] Auth # [id number] Valid 05/03/21-08/03/21 * Telephone Encounter - Ruth Ann Russellard - 05/03/2021 3:48 PM EDT Pending auth insurance documented in this encounter Plan of Treatment Not on file documented as of this encounter Visit Diagnoses Not on filedocumented in this encounter Care Teams Slag Production Worker Relationship Specialty Start Date End Date Yoselyn Lim MD PCP - General Internal Medicine 06/15/19 06/24/21 Oscar Ortega MD [address] [place] [address] PCP - General Internal Medicine 06/25/21 07/08/21 [facility] [address] [place] [address] PCP - General Internal Medicine 07/09/21 10/17/21 Oscar Ortega MD [address] [place] [address] PCP - General Internal Medicine 10/18/21 Radha Espinoza DO 06/15/19 06/24/21 Cary Claros MD [address] [facility] [address] [place] [address] Specialist Neurosurgery 07/09/21 documented as of this encounter
--- OUTSIDE RECORDS SUMMARY | 2024-08-29 10:33 | XMS_ITS | Encounter Summary ---
Author Organization [facility] Address [address] [place] [address] Care Team Providers Care Security Systems Installer Name Role Phone Cary Claros MD Unavailable [phone] Oscar Ortega MD Primary Care Provider [phone] Encounter Details Date Type Department Care Team Description 02/18/2024 [facility] Medical Records [address] [place] [address] Social History Tobacco Use Types Packs/Day Years [...] on file documented as of this encounter Procedures Procedure Name Priority Date/Time Associated Diagnosis Comments OUTSIDE LAB Routine 02/19/2024 OUTSIDE EKG Routine 02/18/2024 documented in this encounter Results * OUTSIDE LAB (02/19/2024) Provider Default LAB * OUTSIDE EKG (02/18/2024) Provider Default CARDIOLOGY documented in this encounter Visit Diagnoses Not on filedocumented in this encounter Care Teams Security Systems Installer Relationship Specialty Start Date End Date Oscar Ortega MD [address] [place] [address] PCP - General Internal Medicine 10/18/21 Cary Claros MD [address] [place] [address] Specialist Neurosurgery 07/09/21 documented as of this encounter
--- OUTSIDE RECORDS SUMMARY | 2024-08-29 10:33 | XMS_ITS | Encounter Summary ---
Author Organization [facility] Address [address] [place] [address] Care Team Providers Care Hvac Mechanical Engineer Name Role Phone Ericka Landis MD Primary Care Provider Un available Sugar BowersoFaustinoRadha DO Primary Care Pro vider Unavailable Yoselyn Lim MD Primary Care Provider Unavail able Ericka Landis MD Unavailable Unavaila ble Radha Espinoza DO Unavailable Unavailable Oscar Ortega MD Primary Care Provider [phone] [facility], [facility] Primary Care Provider UnavailCary Deleon MD Unavailable [phone] Oscar Ortega MD Primary Care Provider [phone] Encounter Details Date Type Department Care Team Description 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 Medical Records [address] [place] [address] Paz Iniguez NP Social History Tobacco Use Types Packs/Day [...] on filedocumented in this encounter Care Teams Hvac Mechanical Engineer Relationship Specialty Start Date End Date Ericka Landis MD PCP - General Internal Medicine 11/04/17 Radha Espinoza DO PCP - General 02/07/19 06/14/19 Yoselyn Lim MD PCP - General Internal Medicine 06/15/19 06/24/21 Oscar Ortega MD [address] [place] [address] PCP - General Internal Medicine 06/25/21 07/08/[address] [address] PCP - General Internal Medicine 07/09/21 10/17/21 Oscar Ortega MD [address] [place] [address] PCP - General Internal Medicine 10/18/21 Ericka Landis MD Internal Medicine 02/07/1906/14 Radha Espinoza DO 06/15/19 06/24/21 Cary Claros MD [address] [place] [address] [place] [address] Specialist Neurosurgery 07/09/21 documented as of this encounter
--- OUTSIDE RECORDS SUMMARY | 2024-08-29 10:34 | XMS_ITS | Encounter Summary ---
Author Organization [facility] Address [address] [place] [address] Care Team Providers Care Cleaning Technician Name Role Phone Ericka Landis MD Primary Care Provider Un available Sugar BowersoFaustinoRadha DO Primary Care Pro vider Unavailable Yoselyn Lim MD Primary Care Provider Unavail able Ericka Landis MD Unavailable Unavaila ble Radha Espinoza DO Unavailable Unavailable Oscar Ortega MD Primary Care Provider [phone] [facility], [facility] Primary Care Provider UnavailCary Deleon MD Unavailable [phone] Oscar Ortega MD Primary Care Provider [phone] Encounter Details Date Type Department Care Team Description 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 Medical Records [address] [place] [address] [facility] [place] Social History Tobacco Use Types Packs/Day Years [...] on filedocumented in this encounter Care Teams Cleaning Technician Relationship Specialty Start Date End Date Ericka Landis MD PCP - General Internal Medicine 11/04/17 Radha Espinoza DO PCP - General 02/07/19 06/14/19 Yoselyn Lim MD PCP - General Internal Medicine 06/15/19 06/24/21 Oscar Ortega MD [address] [place] [address] PCP - General Internal Medicine 06/25/21 07/08/[address] [address] PCP - General Internal Medicine 07/09/21 10/17/21 Oscar Ortega MD [address] [place] [address] PCP - General Internal Medicine 10/18/21 Ericka Landis MD Internal Medicine 02/07/1906/14 Radha Espinoza DO 06/15/19 06/24/21 Cary Claros MD [address] [place] [address] [place] [address] Specialist Neurosurgery 07/09/21 documented as of this encounter
--- OUTSIDE RECORDS SUMMARY | 2024-08-29 10:34 | XMS_ITS | Data Portability ---
Author Organization [facility] Address [address] [place] [id number] Care Team Providers Care Pipe Finisher Name Role Phone [facility] Referring Provider Assessment Encounter Date Assessment Date Assessment LastModified by Organization Details LastModified Time 01/02/2023 01/02/2023 I have reviewed and agree with the assessment and plan as documented by the lead customer service representative. I provided real-time medical direction for this encounter and was immediately available to provide additional phone-based assistance as needed. 67F with 17 days of intermittent congestion, cough. Pt seen for recent lower extremity edema and started on 2 week course of Lasix. Also recently started on Zyrtec x 1 day. No fever, no chest pain, no SOB. No sore throat, mild cough presently, no congestion. Vitals reveal no acute findings. Respiratory findings normal, no wheezing, no rhonchi. No leg edema. Differential includes allergic rhinitis, vs sinusitis, vs pneumonia vs CHF, however patients examination is more consistent with allergies. No infectious type symptoms. Recommend patient continue with Zyrtec and nasal spray, and to monitor for symptoms worsening. Instructions given to patient to monitor for fever, severe shortness of breath, worsening cough or new concerns. [employer]ola Not available 01/02/2023 15:44:24 Plan of Treatment Reminders Order Date Submit Date Provider Last Modified By Organization Details Last Modified Time Details Appointments None record ed. Lab None record ed. Referral None record ed. Procedures None record ed. Surgeries None record ed. Imaging None record ed. Medication Orders None record ed. Patient TargetsNo targets recorded. Patient InstructionsNo instructions recorded. Reason for Referral None Reported. Medical Equipment None Reported. Medications Name Sig Start Date Stop Date Status Note LastModified by Organization Details LastModified Time trazodone 50 mg tablet TAKE 1 TABLET BY MOUTH AT BEDTIME active Not Available Not Available No t Available meloxicam 15 mg tablet TAKE 1 TABLET BY MOUTH DAILY active Not Available Not Available Not Available amoxicillin 500 mg tablet TAKE 4 TABLETS BY MOUTH PRIOR TO ALL DENTAL APPOINTMENT S active Not Available Not Available No t Available acetaminophe n ER 650 mg tablet,exten ded release TAKE 1 TABLET BY MOUTH EVERY 8 HOURS NEEDED FOR PAIN FOR UP TO 30 DAYS active Not Available Not Available N ot Available trazodone 100 mg tablet TAKE 1 TABLET BY MOUTH AT BEDTIME active Not Available Not Available No t Available amlodipine 10 mg tablet TAKE 1 TABLET BY MOUTH DAILY active Not Available Not Available Not Available omeprazole 20 mg capsule,rogelio yed release TAKE 1 CAPSULE BY MOUTH DAILY active Not Available Not Available Not Available zolpidem 5 mg tablet TAKE 1 TABLET BY MOUTH AT BEDTIME NEEDED active Not Available Not Available No t Available furosemide 20 mg tablet TAKE 1 TABLET BY MOUTH EVERY OTHER DAY FOR 7 DAYS NEEDED. MAY REPEAT FOR PERSISTENT SWELLING active Not Available Not Available No t Available zolpidem 10 mg tablet TAKE 1 TABLET BY MOUTH AT BEDTIME NEEDED active Not Available Not Available No t Available methylpredni solone 4 mg tablets in a dose pack FOLLOW PACKAGE DIRECTIONS active Not Available Not Available N ot Available levothyroxin e 112 mcg tablet TAKE 1 TABLET BY MOUTH THURSDAY THROUGH THURSDAY. NONE ON THURSDAY active Not Available Not Available No t Available bupropion HCl XL 150 mg 24 hr tablet, extended release TAKE 1 TABLET BY MOUTH EVERY MORNING active Not Available Not Available No t Available melatonin 10 mg-lemon balm leaf extract 1 mg tablet TAKE 1 TABLET BY MOUTH EVERY NIGHT AT BEDTIME active Not Available Not Available No t Available Vitals Date Recorded Oxygen saturation Oxygen saturation in Arterial blood by Pulse oximetry Respiratory rate Body weight Heart rate Body temperature Systolic blood pressure Diastolic blood pressure Provider Name and Address Organization Details Last Updated DateTime 3 100 % 100 % 18 /min 40997.2 4 g 81 /min 97.3 [degF] 121 mm[Hg] 72 mm[Hg] Not Available [facility] - production 3 15:36:22 Social History None recorded. Functional Status None recorded. Mental Status None recorded. Family History Nothing Reported. Medical History No medical history recorded. Gynecological HistoryNo gynecological history recorded. Obstetrics History GPAL:G 0 P 0 0 0 0 Past Encounters Encounter ID Performer Location Encounter Start Date Encounter Closed Date Diagnosis/Indication Diagnosis SNOMED-CT Code Diagnosis ICD10 Code Diagnosis Note [id number] Vilma Khalil MD [facility] [address] [place] [phone] 01/02/2023 15:36:17 01/05/2023 13:09:53 Respiratory tract congestion 048012738 R09.89 Health Concerns Section Related Observation LastModified by Organization Detai ls LastModified Time None Recorded Concern Status LastModified by Organization Details LastModified Time None Recorded Advance Directives Directive None Recorded Payers Encounter Date Sequence Insurance Name Policy Number Policy Leon Covered Member ID Leon Member ID Guarantor Name 01/02/2023 1 [facility] - DOS ON OR AFTER 2022 - DUAL ELIGIBLE - CUSTODIAL OPTIONS AND ONE CARE (MEDICARE REPLACEMENT/ADV ANTAGE - HMO) Jenni Bond [id number] Jenni Bond Notes Date Note Type Note Provider Name and Address Organization Details Recorded Time 01/02/2023 text/html [facility] Nursing Assessment: Reason For Request: Daughter reporting not feeling well for over a week. Asthma? no phlegm, taking meds for allergies but daughter is reporting asthma like symptoms (even though the pt does not have asthma) Trouble breathing....tigh t chest....no asthma diagnosis........ shortness of breath with a dry cough.....no congestion....sli ght chest pain when coughing. Chief Complaints: Cough, Shortness of Breath/Dyspnea, Chest Pain PMH: Hypertension, Other Allergies: No Known Comments: Member daughter calling in to place a referral, member identified via /name. Member with a 1 week history of cold symptoms; dry persistent cough, congestion, wheezes, sob and chest tightness. Member went to the ED on Thursday because she was retaining fluid, was given a 14 day course of lasix, still taking, she had symptoms at that time and was referred to follow up with PCP, family has not done so. Member denies fever/chills, no n/v/d. She would like to be evaluated. Vilma Khalil MD [address] [facility],[address], [place], [address], [facility] 01/02/2023 15:44:47 OBGyn Episode No OBEpisode recorded.
== END 2024-08-29 10:31 | disposition home or self-care (01) ==
PROVIDERS: PCP Internal Medicine; Visit Provider Hospitalist
DX: G47.33 Obstructive sleep apnea (adult) (pediatric) (principal); I44.2 Atrioventricular block, complete; J31.0 Chronic rhinitis; F51.01 Primary insomnia
CPT/HCPCS: 99214; G2211

== ENCOUNTER → 2024-08-29 09:58 | Outpatient (BNVA) | payer OTHER, SELFPAY | PROVIDERS: PCP Internal Medicine; Visit Provider Hospitalist | DX: G47.33 Obstructive sleep apnea (adult) (pediatric) (principal); J31.0 Chronic rhinitis; I44.2 Atrioventricular block, complete; F51.01 Primary insomnia | CPT/HCPCS: 99212 ==

== ENCOUNTER → 2025-01-06 20:30 | Outpatient (REF) | payer OTHER, SELFPAY ==
--- OUTSIDE RECORDS SUMMARY | 2025-01-06 22:46 | XMS_ITS | Clinical Summary ---
Author Organization [facility] [address] [facility] Building Address [address] [place] [phone] Phone Care Team Providers Care Player Development Executive Name Role Phone Oscar Ortega MD Primary Care Provider [phone] Allergies No known active allergies Medications hydroCHLOROthia zide (HYDRODIURIL) 25 mg tablet Take 1 tablet (25 mg total) by mouth 1 (one) time each day. 4 Active omeprazole (PriLOSEC) [address] capsule Take 1 capsule (20 mg total) by mouth 1 (one) time each day. 4 Active albuterol sulfate (ProAir RespiClick) 90 mcg/actuation aerosol powdr breath activated Inhale 2 puffs by mouth. 4 Active meloxicam (MOBIC) 15 mg tablet Take 1 tablet (15 mg total) by mouth 1 (one) time each day if needed. 4 Active acetaminophen (TYLENOL 8 HOUR) 650 mg 8 hr tablet Take 1 tablet (650 mg total) by mouth every 8 (eight) hours if needed. 4 Active simethicone (MYLICON) 80 mg chewable tablet Chew 1 tablet (80 mg total). 4 Active senna-docusate (PERICOLACE) 8.6-50 mg per tablet Take 1 tablet by mouth. 4 03/04/20 25 Active fluticasone propionate (FLONASE) 50 mcg/actuation nasal spray INSTILL 1 SPRAY IN EACH NOSRTIL DAILY NEEDED 4 Active amoxicillin (AMOXIL) 500 mg capsule Take 1 capsule (500 mg total) by mouth. Active incontinence pad, liner, disp pad 1 Units by Does not apply route at bedtime. 3 Active zolpidem (AMBIEN) 5 mg tablet Take 1 tablet (5 mg total) by mouth at bedtime as needed. at bedtime for sleep Max Daily Amount: 5 mg 5 Active levothyroxine (SYNTHROID, LEVOTHROID) 112 mcg tablet Take 1 tablet (112 mcg total) by mouth 1 (one) time each day before breakfast. 90 tablet 1 5 Active DULoxetine (CYMBALTA) [address] capsule Take 1 capsule (20 mg total) by mouth 1 (one) time each day. Do not crush or chew. 90 each 1 5 05/09/20 25 Active naproxen (NAPROSYN) 500 mg tablet Take 1 tablet (500 mg total) by mouth 2 (two) times a day if needed for moderate pain (pain). 60 tablet 1 5 02/09/20 25 Active diclofenac (VOLTAREN) 1 % topical gel Apply 2 g topically 2 (two) times a day. 60 g 1 5 Active Active Problems Problem Noted Date Diagnosed Date Class 2 severe obesity due t o excess calories with serious comorbidity and body mass index (BMI) of 37.0 to 37.9 in adult ([facility] V24, CMS/[facility] V28) 06/29/2024 Anxiety 04/27/2024 Overview (04/27/2024): Follows with psychiatry Hypothyroid 04/27/2024 Insomnia 04/27/2024 Overview (04/27/2024): Prescribed ambien from psychiatry Anup Luevano CT CATIE (obstructive sleep apnea) 04/27/2024 Overview [...] to follow her here. 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 Overview (04/27/2024): Follows with [facility] oncology completed tamoxifen in 11/2018 Lumbar [...] Primary osteoarthritis involving multiple joints 01/12/2018 Dementia ([facility] V24, [facility] V28) 11/17/2017 Encounters Date Type Department Care Team Description 11/[facility] [address] [place], [place] [address] [phone] Oscar Ortega MD Forms/questionnaires ([facility]) 11/10/2024 9:45 AM EDT Office Visit Internal Medicine - [address] [place] [phone] Oscar Ortega MD Anxiety (Primary Dx); Primary osteoarthritis involving multiple joints; Iron deficiency anemia secondary to inadequate dietary iron intake 11/04/[facility] [place] [address] Oscar Ortega MD Faxed Order ( [facility]) from Last 3 Months Immunizations Name Administration [...] BIOPSY ----; COMMENT: bilateral ESOPHAGOGASTRODUODENOSCOPY 03/03/2018 PROCEDURE: ND ESOPHAGOGASTRODUODENOSCOPY TRANSORAL DIAGNOSTIC; COMMENT: normal Medical History [...] 10/18/2018 DX:GERD (gastroesophageal re flux disease) Dementia ([facility] V24, [facility] V28) DX:Dementia (HCC) Family History Medical History Relation Name Comments [...] Date Smoking Tobacco: Never Smokeless Tobacco: Never Tobacco Cessation:Counseling Given: Not Answered Alcohol Use Standard Drinks/Week Comments No 0 (1 standard drink = 0.6 oz pur e alcohol) Comments No Sex and Gender Information Value Date Recorded Sex Assigned at Not on file Legal Sex Female 2:18 AM EST Gender Identity Not on file Sexual Orientation Not on file Obstetrics History Last Filed Vital Signs Vital Sign Reading Time Taken Comments Blood Pressure 113/67 11/10/2024 10:13 AM EDT Pulse 66 11/10/2024 10:13 AM EDT Temperature - - Respiratory Rate - - Oxygen Saturation 98% 01/14/2023 1:06 PM EDT room air Inhaled Oxygen Concentration - - Weight 96.3 kg (212 lb 3.2 oz) 11/10/2024 10:13 AM EDT Height 162.6 cm (5' 4 ) 11/10/2024 10:13 AM EDT Body Mass Index 36.42 11/10/2024 10:13 AM EDT Plan of Treatment Upcoming Encounters Date Type Department Care Team (Late st Contact Info) Description 05/16/2025 11:00 AM EDT Office Visit Internal Medicine - [facility] [address] [place] [address] Oscar Ortega MD [address] [place] [address] Health Maintenance Due Date Last Done Comments Breast Cancer Screening 1955 Zoster Vaccines (1 of 2) 1973 RSV Immunization Adult Patients (1 - Risk 60-74 years 1-dose series) 2014 COVID-19 Vaccine (3 - Moderna risk series) 12/26/2020 11/28/2020, 10/31/2020 Falls Risk Assessment 06/29/2022 Medicare Annual Wellness Visit 06/29/2022 Social Influencers of Health Screening 06/29/2022 Depression Screening 10/07/2024 10/08/2023 Influenza Vaccine (Season Ended) 2025 04/09/2023, 06/20/2016, 09/06/2014, Additional history exists Hypertension/CHF/CAD Annual BMP Blood Test 09/23/2025 09/23/2024, 10/08/2023 Colorectal Cancer Screening: Colonoscopy 10/28/2026 10/28/2016 Cholesterol Screening (Lipid Panel) 09/23/2029 09/23/2024, 10/08/2023 DTaP,Tdap,and Td Vaccines (3 - Td or Tdap) 03/02/2030 03/02/2020, 05/27/2013 Osteoporosis Screening (Bone Density Screening) 08/03/2030 08/03/2020 Hepatitis C Screening Completed 12/15/2018 Pneumococcal Vaccine: 50+ Years Completed 04/09/2023, 07/13/2019 HIB Vaccines Aged [...] patient's age to complete this topic Meningococcal B Vaccine Aged Out No l onger eligible based on patient's age to complete this topic RSV Immunization Patients Under 20 months Aged Out No longer eligible based on patient's age to complete this topic Varicella Vaccines Aged Out No longer eligible based on patient's age to complete this topic Procedures Procedure Name Priority Date/Time Associated Diagnosis Comments THYROID STIMULATING HORMONE WITH REFLEX TO FREE T4 AND FREE T3 Routine 12/13/2024 2:16 PM EDT Acquired hypothyroidism FREE THYROXINE WITH REFLEX TO FREE TRIIODOTHYRONINE Routine 11/10/2024 10:57 AM EDT Acquired hypothyroidism CBC WITH AUTO DIFFERENTIAL Routine 11/10/2024 10:57 AM EDT Iron deficiency anemia secondary to inadequate dietary iron intake THYROID STIMULATING HORMONE WITH REFLEX TO FREE T4 AND FREE T3 Routine 11/10/2024 10:57 AM EDT Acquired hypothyroidism CBC AND DIFFERENTIAL Routine 11/10/2024 10:57 AM EDT Iron deficiency anemia secondary to inadequate dietary iron intake IRON AND TIBC Routine 11/10/2024 10:57 AM EDT Iron deficiency anemia secondary to inadequate dietary iron intake FERRITIN Routine 11/10/2024 10:57 AM EDT Iron deficiency anemia secondary to inadequate dietary iron intake COMPREHENSIVE METABOLIC PANEL Routine 09/23/2024 12:17 PM EST Mixed hyperlipidemia Essential hypertension LIPID PANEL WITH REFLEX TO DIRECT LDL Routine 09/23/2024 12:17 PM EST Mixed hyperlipidemia DEPRESSION SCREENING Routine 10/08/2023 DXA BONE DENSITY STUDY 1+ SITS AXIAL SKEL Routine 08/03/2020 4:06 PM EST Asymptomatic menopausal state HEPATITIS C SCREENING Routine 12/15/2018 COLONOSCOPY Routine 10/28/2016 from Last 3 Months or Most Recently Relevant to Health Maintenance Results * Thyroid stimulating hormone with reflex to free t4 and free t3 (12/13/2024 2:16 PM EDT) Only the most recent of2 resultswithin the time period is included. TSH 3.81 0.40 - 4.00 mcIU/mL LAB CHEMISTRY METHOD 12/13/2024 6:43 PM EDT [facility] Blood Venous blood specimen / Unknown Venipuncture / Unknown 12/13/2024 2:16 PM EDT 12/13/2024 2:16 PM EDT Oscar Ortega MD LAB BLOOD ORDERABLES Final Resu lt Performing Organization Address [facility] de Phone Number [facility] [address] [place] [address], [place] [phone] * (ABNORMAL) Free thyroxine with reflex to free triiodothyronine (11/10/2024 10:57 AM EDT) [facility] Free T4 1.96(H) 0.70 - 1.80 ng/dL LAB CHEMISTRY METHOD 11/10/2024 4:27 PM EDT [facility] Blood Venous blood specimen / Unknown Venipuncture / Unknown 11/10/2024 10:57 AM EDT 11/10/2024 10:57 AM EDT Oscar Ortega MD LAB BLOOD ORDERABLES Final Resu lt Performing Organization Address [facility]/ZIP Co de Phone Number [facility] [address] [place] [address], [place] [phone] * (ABNORMAL) CBC auto differential (11/10/2024 10:57 AM EDT) WBC 4.8 4.8 - 10.8 K/mcL LAB HEMETOLOGY METHOD 11/10/2024 2:22 PM EDT [facility] RBC 3.90 3.80 - 4.80 M/mcL LAB HEMETOLOGY [facility] Hemoglobin 11.8 11.5 - 16.0 g/dL LAB [facility]EMETOLOGY METHOD [facility]10[facility]24 [facility] Hematocrit 37.2 35.0 - 47.0 % LAB HEMETOLOGY METHOD 11/10/2024 2:22 PM EDT [facility] MCV 96.1 79.0 - 98.0 FL LAB HEMETOLOGY METHOD 11/10[facility]2024 [facility] MCH 30.5 27.0 - 32.0 pcg LAB HEMETOLOGY METHOD 11/10/2024 2:22 PM [facility] MCHC 31.7(L) 32.0 - 37.0 g/dL LAB HEMETOLOGY METHOD 11/10/2024 2:22 PM [facility] RDW 12.9 11.0 - 15.0 % LAB HEMETOLOGY METHOD 11/10/2024 2:22 PM [facility] Platelets 206 130 - 400 K/mcL LAB HEMETOLOGY METHOD 11/10/2024 2:22 PM [facility] MPV 11.1(H) 7.0 - 11.0 FL LAB HEMETOLOGY METHOD 11/10/2024 2:22 PM EDT [facility] NRBC 0.0 <1.0 % LAB HEMETOLOGY METHOD 11/10[facility]2024 [facility] NRBC Absolute 0.00 <0.10 K/mcL LAB HEMETOLOGY METHOD 11/10/2024 2:22 PM [facility] Neutrophils Relative 51.8 % LAB HEMETOLOGY METHOD 11/10/2024 2:22 PM [facility] Lymphocytes Relative 31.7 % LAB HEMETOLOGY METHOD 11/10/2024 2:22 PM [facility] Monocytes Relative 8.6 % LAB HEMETOLOGY METHOD 11/10/2024 2:22 PM [facility] Eosinophils Relative 6.5 % LAB HEMETOLOGY METHOD 11/10/2024 2:22 PM [facility] Basophils Relative 1.0 % LAB HEMETOLOGY METHOD 11/10/2024 2:22 PM [facility] Immature Granulocytes Relative 0.4 % LAB HEMETOLOGY METHOD 11/10/2024 2:22 PM [facility] Neutrophils Absolute 2.48 1.50 - 7.00 K/mcL LAB HEMETOLOGY METHOD 11/10/2024 2:22 PM [facility] Lymphocytes Absolute 1.52 1.00 - 5.00 K/mcL LAB HEMETOLOGY METHOD 11/10/2024 2:22 PM [facility] Monocytes Absolute 0.41 0.20 - 1.00 K/mcL LAB HEMETOLOGY METHOD 11/10/2024 2:22 PM [facility] Eosinophils Absolute 0.31 0.00 - 0.50 K/mcL LAB HEMETOLOGY METHOD 11/10/2024 2:22 PM [facility] Basophils Absolute 0.05 0.00 - 0.20 K/mcL LAB HEMETOLOGY METHOD 11/10/2024 2:22 PM [facility] Immature Granulocytes Absolute 0.02 0.00 - 0.03 K/mcL LAB HEMETOLOGY METHOD 11/10/2024 2:22 PM [facility] Blood Venous blood specimen / Unknown Venipuncture / Unknown 11/10/2024 10:57 AM EDT 11/10/2024 10:57 AM EDT us Oscar Ortega MD LAB BLOOD ORDERABLES Final Resu lt Performing Organization Address City/[facility]/ZIP Co de Phone Number [facility] [address] [place] [address], [place] [phone] * Iron and TIBC (11/10/2024 10:57 AM EDT) Iron 58 40 - 150 mcg/dL LAB CHEMISTRY METHOD 11/10/2024 2:29 PM EDT [facility] TIBC 283 250 - 450 mcg/dL LAB CHEMISTRY METHOD 11/10/2024 2:29 PM EDT [facility] Iron Saturation 20 15 - 50 % LAB CHEMISTRY METHOD 11/10/2024 2:29 PM EDT [facility] Blood Venous blood specimen / Unknown Venipuncture / Unknown 11/10/2024 10:57 AM EDT 11/10/2024 10:57 AM EDT us Oscar Ortega MD LAB BLOOD ORDERABLES Final Resu lt Performing Organization Address [facility] Co de Phone Number [facility] [address] [place] [address], [place] [phone] * Ferritin (11/10/2024 10:57 AM EDT) Ferritin 50 8 - 252 ng/mL LAB CHEMISTRY METHOD 11/10/2024 2:29 PM EDT [facility] Blood Venous blood specimen / Unknown Venipuncture / Unknown 11/10/2024 10:57 AM EDT 11/10/2024 10:57 AM EDT us Oscar Ortega MD LAB BLOOD ORDERABLES Final Resu lt Performing Organization Address City/[facility]/ZIP Co de Phone Number [facility] [address] [place] [address], [place] [phone] * (ABNORMAL) Lipid panel with reflex to direct LDL (09/23/2024 12:17 PM EST) Cholesterol 215(H) 0 - 200 mg/dL LAB CHEMISTRY METHOD 09/23/2024 5:43 PM EST [facility] Triglycerides 144 0 - 150 mg/dL LAB CHEMISTRY METHOD 09/23/2024 5:43 PM EST [facility] HDL 58 >=40 mg/dL LAB CHEMISTRY METHOD 09/23/2024 5:43 PM EST [facility] LDL Calculated 128(H) 0 - 100 mg/dL LAB CHEMISTRY METHOD 09/23/2024 5:43 PM [facility] VLDL Cholesterol Idris 28.8 mg/dL LAB CHEMISTRY METHOD 09/23/2024 5:43 PM [facility] Non HDL Chol. (LDL+VLDL) 157(H) <145 mg/dL LAB CHEMISTRY METHOD 09/23/2024 5:43 PM [facility] Chol/HDL Ratio 3.7 0.0 - 4.4 LAB CHEMISTRY METHOD 09/23/2024 5:43 PM [facility] Blood Venous blood specimen / Unknown Venipuncture / Unknown 09/23/2024 12:17 PM EST 09/23/2024 12:17 PM EST Oscar Ortega MD LAB BLOOD ORDERABLES Final Resu lt [facility] [address] [place] [address], [place] [phone] * (ABNORMAL) Comprehensive metabolic panel (09/23/2024 12:17 PM EST) Sodium 139 133 - 145 mmol/L LAB CHEMISTRY METHOD 09/23/2024 5:43 PM [facility] Potassium 4.9 3.5 - 5.5 mmol/L LAB CHEMISTRY METHOD 09/23/2024 5:43 PM [facility] Chloride 103 96 - 110 mmol/L LAB CHEMISTRY METHOD 09/23/2024 5:43 PM [facility] CO2 30 21 - 32 mmol/L LAB CHEMISTRY METHOD 09/23/2024 5:43 PM [facility] Anion Gap 6 3 - 11 LAB CHEMISTRY METHOD 09/23/2024 5:43 PM [facility] Glucose 101(H) 70 - 100 mg/dL LAB CHEMISTRY METHOD 09/23/2024 5:43 PM [facility] BUN 12 5 - 25 mg/dL LAB CHEMISTRY METHOD 09/23/2024 5:43 PM [facility] Creatinine 0.71 0.50 - 1.10 mg/dL LAB CHEMISTRY METHOD 09/23/2024 5:43 PM [facility] eGFR 92 >=60 mL/min/1. 73m2 LAB CHEMISTRY METHOD 09/23/2024 5:43 PM [facility] Comment:Calculation based on the??Chronic Kidney Disease Epidemiology Collaboration (CKD-EPI) equation refit??without adjustment for race. BUN/Creatinine Ratio 16.9 LAB CHEMISTRY METHOD 09/23/2024 5:43 PM [facility] Calcium 9.3 8.5 - 10.5 mg/dL LAB CHEMISTRY METHOD 09/23/2024 5:43 PM [facility] AST (SGOT) 26 10 - 42 unit/L LAB CHEMISTRY METHOD 09/23/2024 5:43 PM [facility] ALT (SGPT) 22 10 - 60 unit/L LAB CHEMISTRY METHOD 09/23/2024 5:43 PM [facility] Alkaline Phosphatase 124(H) 42 - 121 unit/L LAB CHEMISTRY METHOD 09/23/2024 5:43 PM [facility] Total Protein 7.4 6.0 - 8.0 g/dL LAB CHEMISTRY METHOD 09/23/2024 5:43 PM [facility] Albumin 3.5 3.2 - 5.0 g/dL LAB CHEMISTRY METHOD 09/23/2024 5:43 PM EST [facility] Total Bilirubin 0.3 0.0 - 1.4 mg/dL LAB CHEMISTRY METHOD 09/23/2024 5:43 PM EST [facility] Blood Venous blood specimen / Unknown Venipuncture / Unknown 09/23/2024 12:17 PM EST 09/23/2024 12:17 PM EST Oscar Ortega MD LAB BLOOD ORDERABLES Final Resu lt [facility] [address] [place] [address], [place] [phone] * Depression Screening (10/08/2023) Depression Screening abstracted Historical Provider HEALTH MAINTENANCE Final Result * DXA BONE DENSITY STUDY 1+ SITS [...] bone mineral density by WHO criteria. [facility] Department of Internal Medicine recommends using National [...] alternative screening schedule based on travis Li., [facility] August 14, 2011 for patients with osteopenia [...] bone mineral density by WHO criteria. [facility] Department of Internal Medicine recommendsusing National Osteoporosis [...] FRAX. Optional alternative screening schedule based on florence [facility] al., [facility] for patients with [facility]openia (based on hip BMD T-score) is as follows: * advanced osteopenia (T scores -2.00 to -2.49), BMD testing every year * moderate osteopenia (T scores -1.50 to -1.99), BMD testing every 5years mild osteopenia or normal BMD (T scores -1.50 and higher), BMD testingevery 15 years Rae HAYES IMG DXA PROCEDURES Final Result * Hepatitis C Screening (12/15/2018) [facility] Hepatitis C Screening negative Historical Provider HEALTH MAINTENANCE Final Result * Colonoscopy (10/28/2016) [facility] Colonoscopy abstracted. normal Anatomical Region Laterality Modality Other Historical Provider HEALTH MAINTENANCE Final Result from Last 3 Months or Most Recently Relevant to Health Maintenance Insurance [employer] MED[employer] Member Subscriber Plan / Payer (Ef fective 2019-Present) Name:Jenni Bond Relation to Subscriber:Self Name:Jenni Aldana Payer ID:[id number] Group ID:[id number] Type:Not on file Address: [place] [address] [address] [id number] Care Teams Player Development Executive Relationship Specialty Start Date End Date Oscar Ortega MD [address] [place] [address] [place] [address] PCP - General Internal Medicine 06/25/21
== END ==
LOC: HO.SL 20:30
PROVIDERS: PCP Internal Medicine; Visit Provider Hospitalist
DX: G47.33 Obstructive sleep apnea (adult) (pediatric) (principal); R06.83 Snoring
CPT/HCPCS: 95810; 95811

== ENCOUNTER → 2025-01-06 22:01 | Outpatient (BNV) | payer OTHER, SELFPAY | PROVIDERS: PCP Internal Medicine; Visit Provider Internal Medicine | DX: G47.33 Obstructive sleep apnea (adult) (pediatric) (principal) | CPT/HCPCS: 95810 ==

== ENCOUNTER 2025-01-25 10:57 | Outpatient (AMB) | payer OTHER, SELFPAY ==
[2025-01-25 11:02] VITALS: BP 124/68; PULSE 60; O2SAT 96; BMI 36.1
--- NOTE | 2025-01-25 11:02 | A.OFFVIS_ITS ---
Vital Signs 01/25/25 11:02 Height 5 ft 4 in Weight 210 lb 8.663 oz BMI 36.1 BP 124/68 Blood Pressure Location Lt brachial Position Sitting Pulse 60 Pulse Source Pulse Oximeter Pulse Oximetry (%) 96 Oxygen Delivery Method Room Air Intake Visit Reasons: Obstructive sleep apnea Allergies No Known Allergies Allergy (Verified 01/25/25 11:05) HPI Comments Details: The patient is a 69 y/o woman with a history of CATIE presenting for an evaluation. She was having daytime drowsiness and snorring. She underwent a PSG demonstrating CATIE and was started on CPAP. She tried it, but felt like the pressures were too high. She could not tolerate it and returned it. In the meantime, she was having Chest pressure and was referred to cardiology. She has an appt early February. She presents today with persietent daytime drowsiness and would like to reattempt the use of CPAP. The pamtient has an EPWORTH score of 11.24. In the meantime, it was noted that her HR was only 35 and her blood pressure stable. She denied any dizziness, although, some BOUDREAUX. I briefly ambulated her and HR only ravin to 38. We had her get an EKG where appeared to be in a junctional rhythm with high degree block. I did communicate with cardiology and recommenened transferring to the ED. We had out nurse transfer her to the ED. She will have her cardiac issues dealt with and then we will have her go for an inpatient PSG with pulmonary follow up. 04/26/2024 the patient is here for a pulmonary follow-up visit. Since we last spoke she did go to the ER she ended up getting a pacemaker for high-degree heart block. She still healing from the pacemaker placement. She still has significant daytime drowsiness. Her Dim[place]ale score continues to be elevated 06/19. She was supposed to have sleep study but because of all the different circumstances she has not had 1 as of yet. I will go ahead and order 1. In the meantime I did get further information that she had a CPAP machine through [employer]. Therefore I put an order in to see if they are able to give her another CPAP machine without having to get all the sleep study just to facilitate the pr ocess specially with her significant cardiovascular risk factors. The patient did have difficulties in the past because of the elevated pressures. I did set machine at a low pressure and she will bring it in to be able to adjusted accordingly. 08/29/2024 the patient is here for a pulmonary follow-up visit. Overall she is doing okay. She still complains of daytime drowsiness. She also has car diovascular risk factors. She has had a diagnosis of sleep apnea in the past. She did have a repeat sleep study this time. I did review it with her. Seems that she had an AHI of 10 with significant hypoxia and significant tachycardia. Therefore, the patient will benefit from starting PAP therapy at this time. Although she is concerned that she is very anxious has a hard time sleeping. She has tried multiple medications in the past including gabapentin which was fairly effective but she stopped it because she was concerned about side effects. She also was not trazodone and she did not find that helpful. The only medication that was helpful was Ambien. Although she was concerned because of potential risk of amnesia and she already has a history of dementia in the family. We did talk about holistic approaches with herbal therapies that she can consider. In the meantime I will send or small dose of Ambien in order for her to get comfortable did use the CPAP. 01/25/2025 the patient is here for pulmonary follow-up visit. She continues to have significant daytime drowsiness. Her Dimondale score continues to be elevated 06/19. She did have a home sleep study that was abnormal and we did request a CPAP but her insurance company want her to have an in-lab sleep study. Therefore we did order a split study. She does have an AHI of 16.8 consistent with moderate sleep apnea and a REM related sleep disorder with an AHI greater than 50 episodes per hour during REM sleep. Therefore explained the importance of her using her CPAP at this point APAP and will set that up with a local [employer] company. From a cardiac standpoint she is doing well. From her sleeping standpoint she did get the doxepin and it does help her some although she has these that wake sometimes up to 2 hours. She does take it in conjunction with melatonin which is perfectly fine. We can always increase his doxepin if she needs a higher dose in the near future. For now will have her try the CPAP try to get used to it and she can return in 3-4 months to assess her progress. [facility] Medical History (Updated 08/29/24 @ 22:25 by Kris Brown MD) Insomnia Chronic rhinitis CATIE (obstructive sleep apnea) Family History (Updated 02/18/24 @ 11:47 by Jak Byrnes MD) Mother Hypertension Social History Patient Tobacco Use Status: Never used Tobacco Review of Systems Const Reports daytime sleepiness and Reports snoring Eyes Reports no additional complaints ENT Denies vertigo, Denies dizziness and Reports nasal congestion Card Denies chest pain and Reports dyspnea on exertion Resp Reports dyspnea on exertion, Reports snoring and Denies wheezing GI Reports no additional complaints Musc Reports no additional complaints Skin/Breast Denies rash Neuro Denies vertigo and Denies dizziness Aller/Immun Denies wheezing Physical Exam Vital Signs: Last Vital Signs Pulse 60 01/25/25 11:02 BP 124/68 01/25/25 11:02 Pulse Ox 96 01/25/25 11:02 Oxygen Delivery Method Room Air 01/25/25 11:02 BMI result Body Mass Index 36.1 Last Vital Signs Temp 97.5 F 02/18/24 11:20 Pulse 36 L 02/18/24 11:20 Resp 12 02/18/24 11:20 BP 176/76 H 02/18/24 11:20 Pulse Ox 99 02/18/24 11:20 O2 Del Method Room Air 02/18/24 11:20 BMI result Body Mass Index 37.1 Const General: comfortable and no acute distress Orientation/consciousness: patient oriented x3 HEENT Other: Unremarkable Head: Yes normal to inspection Neck Neck: Yes normal visual inspection Chest Chest palpation & inspection: normal inspection of the chest Resp Effort & Inspection: normal respiratory effort Auscultation: clear to auscultation bilaterally Cardio Rate: bradycardic Heart sounds: S1 normal heart sound present, S2 normal heart sound present and no murmurs GI Palpation (GI): Soft to palpation Back/Spine/Pelvis Other: unremarkable Skin General skin exam: no rashes or lesions noted Neuro General: patient oriented x3 Extrem General: Yes normal to inspection Psych Mental Status: mental status grossly normal Assessment & Plan Assessment & Plan (1) CATIE (obstructive sleep apnea): Code(s): G47.33 - Obstructive sleep apnea (adult) (pediatric) Category: Medical (2) Complete heart block: Comment: s/p PM Code(s): I44.2 - Atrioventricular block, complete Category: Medical (3) Chronic rhinitis: Code(s): J31.0 - Chronic rhinitis Category: Medical (4) Insomnia: Code(s): G47.00 - Insomnia, unspecified Category: Medical Qualifiers: Insomnia type: primary Qualified Code(s): F51.01 - Primary insomnia Plan Needs to start APAP, FM continue Doxepin, may need ahigher dose continue Melatonin continue nasay fluticasone F/U 4 months Coding Level of Care Code Est Pt Level 4 (29051) Diagnoses CATIE (obstructive sleep apnea) G47.33 Complete heart block I44.2 Chronic rhinitis J31.0 Primary insomnia F51.01 Insomnia type: primary Time Spent (min) 16
--- OUTSIDE RECORDS SUMMARY | 2025-01-25 11:41 | XMS_ITS | Data Portability ---
Author Organization [employer], [facility] Address [address] [place] [address] Care Team Providers Care Central Station Operator Name Role Phone [facility] Referring Provider Assessment Encounter Date Assessment Date Assessment LastModified by Organization Details LastModified Time 01/02/2023 01/02/2023 I have reviewed and agree with the assessment and plan as documented by the medical practice manager. I provided real-time medical direction for this [...] 3 100 % 100 % 18 /min 31361.2 4 g 81 /min 97.3 [degF] 121 mm[Hg] 72 mm[Hg] Not Available [employer] - production 3 15:36:22 Social History None recorded. Functional Status None recorded. Mental Status None recorded. Family History Nothing Reported. Medical History No medical history recorded. Gynecological HistoryNo gynecological history recorded. Obstetrics History GPAL:G 0 P 0 0 0 0 Past Encounters Encounter ID Performer Location Encounter Start Date Encounter Closed Date Diagnosis/Indication Diagnosis SNOMED-CT Code Diagnosis ICD10 Code Diagnosis Note [id number] Vilma Khalil MD [facility] [address] [place] [phone] 01/02/2023 15:36:17 01/05/2023 13:09:53 Respiratory tract congestion 631535981 R09.89 Health Concerns Section Related Observation LastModified by Organization Detai ls LastModified Time None Recorded Concern Status LastModified by Organization Details LastModified Time None Recorded Advance Directives Directive None Recorded Payers Insurance Date Sequence Insurance Name Policy Number Policy Leon Covered Member ID Leon Member ID Guarantor Name 02/28/2024 1 [facility]LY [facility] - DOS ON OR AFTER 2022 - DUAL ELIGIBLE - GROUP HOME OPTIONS AND ONE CARE (MEDICARE REPLACEMENT/ADV ANTAGE - HMO) Jenni Bond [id number] Jenni Bond Notes Date Note Type Note [...] like to be evaluated. Vilma Khalil MD [address] [place] [address],[address], [place], [address], [employer] 01/02/2023 15:44:47 OBGyn Episode No OBEpisode recorded.
--- OUTSIDE RECORDS SUMMARY | 2025-01-25 11:41 | XMS_ITS | Encounter Summary ---
Author Organization [facility] Address [address] [place] [address] Care Team Providers Care Recordist Chief Name Role Phone Yoselyn Lim MD Primary Care Provider Unavail able Radha Espinoza DO Unavailable Unavailable Oscar Ortega MD Primary Care Provider [phone] [facility], Pcp Primary Care Provider UnavailCary Deleon MD Unavailable [phone] Oscar Ortega MD Primary Care Provider [phone] Reason for Visit * Reason Onset Date Comments Prior Authorization 05/03/2021 MRI lumbar S [place] Encounter Details Date Type Department Care Team Description 05/03/2021 Telephone Internal Medicine - [address], [address] [place] [address] Bonita Carmen NP Prior Authorization (MRI lumbar [...] 05/06/2021 3:17 PM EDT [facility] Auth # [id number] Valid 05/03/21-08/03/21 * Telephone Encounter - Ruth Ann Russellard - 05/03/2021 3:48 PM EDT Pending auth insurance documented in this encounter Plan of Treatment Not on file documented as of this encounter Visit Diagnoses Not on filedocumented in this encounter Care Teams Recordist Chief Relationship Specialty Start Date End Date Yoselyn Lim MD PCP - General Internal Medicine 06/15/19 06/24/21 Oscar Ortega MD [address] [place] [address] PCP - General Internal Medicine 06/25/21 07/08/21 [facility] [address] [place] [address] PCP - General Internal Medicine 07/09/21 10/17/21 Oscar Ortega MD [address] [place] [address] PCP - General Internal Medicine 10/18/21 Radha Espinoza DO 06/15/19 06/24/21 Cary Claros MD [address] [facility] [address] [place] [address] Specialist Neurosurgery 07/09/21 documented as of this encounter
--- OUTSIDE RECORDS SUMMARY | 2025-01-25 11:41 | XMS_ITS | Clinical Summary ---
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 Overview (04/27/2024): Follows with [facility] oncology completed tamoxifen in 11/2018 Lumbar disc [...] Primary osteoarthritis involving multiple joints 01/12/2018 Dementia ([facility] V24, [facility] V28) 11/17/2017 Encounters Date Type Department Care Team Description 01/11/2025 Telephone Pediatrics - [address] [place] [phone] Oscar Ortega MD Forms/questionnaires ([facility] Primary Provider Order Form) 11/24/2024 Telephone Pediatrics - [address] [phone] Oscar Ortega MD Forms/questionnaires ([facility]) 11/10/2024 9:45 AM EDT Office Visit Internal Medicine - [address] [phone] Oscar Ortega MD Anxiety (Primary Dx); Primary osteoarthritis involving multiple joints; Iron deficiency anemia secondary to inadequate dietary iron intake 11/04/2024 Telephone Pediatrics - [address] [phone] Oscar Ortega MD Faxed Order ( [facility]) [...] BIOPSY ----; COMMENT: bilateral ESOPHAGOGASTRODUODENOSCOPY 03/03/2018 PROCEDURE: GA ESOPHAGOGASTRODUODENOSCOPY TRANSORAL DIAGNOSTIC; COMMENT: normal Medical History [...] 10/18/2018 DX:GERD (gastroesophageal re flux disease) Dementia ([facility] V24, [facility] V28) DX:Dementia ([facility]) Family History Medical History Relation Name Comments [...] Care Team (Late st Contact Info) Description 02/09/2025 9:00 AM EDT Office Visit Internal Medicine - [address] [phone] Timo Woodard PA [address] [place] [address] 05/16/2025 11:00 AM EDT Office Visit Internal Medicine - [address] [phone] Oscar Ortega MD [address] [place] [address] Health Maintenance Due Date Last Done Comments [...] LAB CHEMISTRY METHOD 12/13/2024 6:43 PM EDT [facility] Blood Venous blood specimen / Unknown Venipuncture / Unknown 12/13/2024 2:16 PM EDT 12/13/2024 2:16 PM EDT us Oscar Ortega MD LAB BLOOD ORDERABLES Final Resu lt [facility] [address] [place] [address], * (ABNORMAL) Free thyroxine with reflex to free triiodothyronine (11/10/2024 10:57 AM EDT) Free T4 1.96(H) 0.70 - 1.80 ng/dL LAB CHEMISTRY METHOD 11/10/2024 4:27 PM EDT [facility] Blood Venous blood specimen / Unknown Venipuncture / Unknown 11/10/2024 10:57 AM EDT 11/10/2024 10:57 AM EDT us Oscar Ortega MD LAB BLOOD ORDERABLES Final Resu lt [facility] [address] [place] [address], [place] [phone] * (ABNORMAL) CBC auto differential (11/10/2024 10:57 AM EDT) WBC 4.8 4.8 - 10.8 K/mcL LAB HEMETOLOGY METHOD 11/10/2024 2:22 PM EDT [facility] RBC 3.90 3.80 - 4.80 M/mcL LAB HEMETOLOGY METHOD 11/10/2024 2:22 PM EDT [facility] Hemoglobin 11.8 11.5 - 16.0 g/dL LAB HEMETOLOGY METHOD 11/10/2024 2:22 PM EDT [facility] Hematocrit 37.2 35.0 - 47.0 % LAB HEMETOLOGY METHOD 11/10/2024 2:22 PM EDT [facility] MCV 96.1 79.0 - 98.0 FL LAB HEMETOLOGY METHOD 11/10/2024 2:22 PM EDT [facility] MCH 30.5 27.0 - 32.0 pcg LAB HEMETOLOGY METHOD 11/10/2024 2:22 PM EDT [facility] MCHC 31.7(L) 32.0 - 37.0 g/dL LAB HEMETOLOGY METHOD 11/10/2024 2:22 PM EDT [facility] RDW 12.9 11.0 - 15.0 % LAB HEMETOLOGY METHOD 11/10/2024 2:22 PM EDT [facility] Platelets 206 130 - 400 K/mcL LAB HEMETOLOGY METHOD 11/10/2024 2:22 PM EDT [facility] MPV 11.1(H) 7.0 - 11.0 FL LAB [facility]EMETOLOGY [facility] NRBC 0.0 <1.0 % LAB HEMETOLOGY METHOD 11/10/2024 2:22 PM [facility] NRBC Absolute 0.00 <0.10 K/mcL LAB HEMETOLOGY METHOD 11/10/2024 2:22 PM [facility] Neutrophils Relative 51.8 % LAB HEMETOLOGY METHOD 11/10/2024 2:22 PM [facility] Lymphocytes Relative 31.7 % LAB HEMETOLOGY METHOD 11/10/2024 2:22 PM [facility] Monocytes Relative 8.6 % LAB HEMETOLOGY METHOD 11/10/2024 2:22 PM [facility] Eosinophils Relative 6.5 % LAB HEMETOLOGY METHOD 11/10/2024 2:22 PM [facility] Basophils Relative 1.0 % LAB HEMETOLOGY METHOD 11/10/2024 2:22 PM [facility] Immature Granulocytes Relative 0.4 % LAB HEMETOLOGY METHOD 11/10/2024 2:22 PM [facility] Neutrophils Absolute 2.48 1.50 - 7.00 K/mcL LAB HEMETOLOGY METHOD 11/10/2024 2:22 PM [facility] Lymphocytes Absolute 1.52 1.00 - 5.00 K/mcL LAB HEMETOLOGY METHOD 11/10/2024 2:22 PM [facility] Monocytes Absolute 0.41 0.20 - 1.00 K/mcL LAB HEMETOLOGY METHOD 11/10/2024 2:22 PM [facility] Eosinophils Absolute 0.31 0.00 - 0.50 K/mcL LAB HEMETOLOGY METHOD 11/10/2024 2:22 PM EDT [facility] Basophils Absolute 0.05 0.00 - 0.20 K/[facility] LAB HEMETOLOGY METHOD 11/10/2024 2:22 PM EDT [facility] Immature Granulocytes Absolute 0.02 0.00 - 0.03 K/[facility] LAB HEMETOLOGY METHOD 11/10/2024 2:22 PM EDT [facility] Blood Venous blood specimen / Unknown Venipuncture / Unknown 11/10/2024 10:57 AM EDT 11/10/2024 10:57 AM EDT us Oscar Ortega MD LAB BLOOD ORDERABLES Final Resu lt Performing Organization Address [facility]/ZIP Co de Phone Number [facility] [address] [place] [address], [place] [phone] * Iron and TIBC (11/10/2024 10:57 AM EDT) Iron 58 40 - 150 mcg/dL LAB CHEMISTRY METHOD 11/10/2024 2:29 PM EDT [facility] TIBC 283 250 - 450 mcg/dL LAB CHEMISTRY METHOD 11/10/2024 2:29 PM EDT [facility] Iron Saturation 20 15 - 50 % LAB CHEMISTRY METHOD 11/10/2024 2:29 PM EDT [facility] Blood Venous blood specimen / Unknown Venipuncture / Unknown 11/10/2024 10:57 AM EDT 11/10/2024 10:57 AM EDT us Oscar Ortega MD LAB BLOOD ORDERABLES Final Resu lt Performing Organization Address City/[facility]/ZIP Co de Phone Number [facility] [address] [place] [address], [place] [phone] * Ferritin (11/10/2024 10:57 AM EDT) Ferritin 50 8 - 252 ng/mL LAB CHEMISTRY METHOD 11/10/2024 2:29 PM EDT [facility] Blood Venous blood specimen / Unknown Venipuncture / Unknown 11/10/2024 10:57 AM EDT 11/10/2024 10:57 AM EDT Oscar Ortega MD LAB BLOOD ORDERABLES Final Resu lt [facility] [address] [place] [address], [place] [phone] * (ABNORMAL) Lipid panel with reflex to direct LDL (09/23/2024 12:17 PM EST) Cholesterol 215(H) 0 - 200 mg/dL LAB CHEMISTRY METHOD 09/23/2024 5:43 PM EST [facility] Triglycerides 144 0 - 150 mg/dL LAB CHEMISTRY METHOD 09/23/2024 5:43 PM EST [facility] HDL 58 >=40 mg/dL LAB CHEMISTRY METHOD 09/23/2024 5:43 PM EST [facility] LDL Calculated 128(H) 0 - 100 mg/dL LAB CHEMISTRY METHOD 09/23/2024 5:43 PM EST [facility] VLDL Cholesterol Irdis 28.8 mg/dL LAB CHEMISTRY METHOD 09/23/2024 5:43 PM EST [facility] Non HDL Chol. (LDL+VLDL) 157(H) <145 mg/dL LAB CHEMISTRY METHOD 09/23/2024 5:43 PM EST [facility] Chol/HDL Ratio 3.7 0.0 - 4.4 LAB CHEMISTRY METHOD 09/23/2024 5:43 PM [facility] Blood Venous blood specimen / Unknown Venipuncture / Unknown 09/23/2024 12:17 PM EST 09/23/2024 12:17 PM EST Oscar Ortega MD LAB BLOOD ORDERABLES Final Resu lt [facility] [address] [place] [address], * (ABNORMAL) Comprehensive metabolic panel (09/23/2024 12:17 PM EST) Sodium 139 133 - 145 mmol/L LAB CHEMISTRY METHOD 09/23/2024 5:43 PM [facility] Potassium 4.9 3.5 - 5.5 mmol/L LAB CHEMISTRY METHOD 09/23/2024 5:43 PM [facility] Chloride 103 96 - 110 mmol/L LAB CHEMISTRY METHOD 09/23/2024 5:43 PM [facility] CO2 30 21 - 32 mmol/L LAB CHEMISTRY METHOD 09/23/2024 5:43 PM [facility] Anion Gap 6 3 - 11 LAB CHEMISTRY METHOD 09/23/2024 5:43 PM [facility] Glucose 101(H) 70 - 100 mg/dL LAB CHEMISTRY METHOD 09/23/2024 5:43 PM [facility] BUN 12 5 - 25 mg/dL LAB CHEMISTRY METHOD 09/23/2024 5:43 PM [facility] Creatinine 0.71 0.50 - 1.10 mg/dL LAB CHEMISTRY METHOD 09/23/2024 5:43 PM [facility] eGFR 92 >=60 mL/min/1. 73m2 LAB CHEMISTRY METHOD 09/23/2024 5:43 PM [facility] Comment:Calculation based on the Chronic Kidney Disease Epidemiology Collaboration (CKD-EPI) equation refit without adjustment for race. BUN/Creatinine Ratio 16.9 LAB CHEMISTRY METHOD 09/23/2024 5:43 PM [facility] Calcium 9.3 8.5 - 10.5 mg/dL LAB CHEMISTRY METHOD 09/23/2024 5:43 PM [facility] AST (SGOT) 26 10 - 42 unit/L LAB CHEMISTRY METHOD 09/23/2024 5:43 PM EST [facility] ALT (SGPT) 22 10 - 60 unit/L LAB CHEMISTRY METHOD 09/23/2024 5:43 PM [facility] Alkaline Phosphatase 124(H) 42 - 121 unit/L LAB CHEMISTRY METHOD 09/23/2024 5:43 PM [facility] Total Protein 7.4 6.0 - 8.0 g/dL LAB CHEMISTRY METHOD 09/23/2024 5:43 PM [facility] Albumin 3.5 3.2 - 5.0 g/dL LAB CHEMISTRY METHOD 09/23/2024 5:43 PM [facility] Total Bilirubin 0.3 0.0 - 1.4 mg/dL LAB CHEMISTRY METHOD 09/23/2024 5:43 PM [facility] Blood Venous blood specimen / Unknown Venipuncture / Unknown 09/23/2024 12:17 PM EST 09/23/2024 12:17 PM EST Oscar Ortega MD LAB BLOOD ORDERABLES Final Resu lt [facility] [address] [place] [address], [place] [phone] * Depression Screening (10/08/2023) Pathologist [facility] Depression Screening abstracted Historical Provider HEALTH MAINTENANCE Final Result * DXA BONE DENSITY STUDY 1+ SITS AXIAL SKEL (08/03/2020 4:06 PM EST) Anatomical Region Laterality Modality Bone Densitometr y 03/02/2020 3:24 PM EDT Narrative 08/03/2020 5:13 PM EST BONE DENSITY SCAN (DEXA) FINDINGS: Lumbar Spine [...] bone mineral density by WHO criteria. The [facility] Department of Internal Medicine recommends using [...] alternative screening schedule based on travis Li., [facility] August 14, 2011 for patients with osteopenia [...] bone mineral density by WHO criteria. The [facility] Department of Internal Medicine recommendsusing National [...] alternative screening schedule based on travis Li., [facility] for patients with osteopenia (based on hip BMD T-score) is as follows: * advanced osteopenia (T scores -2.00 to -2.49), BMD testing every year * moderate osteopenia (T scores -1.50 to -1.99), BMD testing every 5years mild osteopenia or normal BMD (T scores -1.50 and higher), BMD testingevery 15 years Rae HAYES IMG DXA PROCEDURES Final Result * Hepatitis C Screening (12/15/2018) [facility] Hepatitis C Screening negative Historical Provider HEALTH MAINTENANCE Final Result * Colonoscopy (10/28/2016) [facility] Colonoscopy abstracted. normal Anatomical Region Laterality Modality Other Historical Provider HEALTH MAINTENANCE Final Result from Last 3 Months or Most Recently Relevant to Health Maintenance Insurance [employer] MED[employer] Member Subscriber Plan / Payer (Ef fective 2019-Present) Name:Jenni Bodn Relation to Subscriber:Self Name:Jenni Aldana Payer ID:[id number] Group ID:[id number] Type:Not on file Address: [place] [address] [id number] Care Teams Backup Sawyer Relationship Specialty Start Date End Date Oscar Ortega MD [address] [place] [address] PCP - General Internal Medicine 06/25/21
== END 2025-01-25 11:26 | disposition home or self-care (01) ==
LOC: HO.HPS 10:57
PROVIDERS: PCP Internal Medicine; Visit Provider Hospitalist
DX: G47.33 Obstructive sleep apnea (adult) (pediatric) (principal); I44.2 Atrioventricular block, complete; J31.0 Chronic rhinitis; F51.01 Primary insomnia
CPT/HCPCS: 99214

== ENCOUNTER → 2025-01-25 10:57 | Outpatient (BNVA) | payer OTHER, SELFPAY | PROVIDERS: PCP Internal Medicine; Visit Provider Hospitalist | DX: G47.33 Obstructive sleep apnea (adult) (pediatric) (principal); I44.2 Atrioventricular block, complete; J31.0 Chronic rhinitis; F51.01 Primary insomnia | CPT/HCPCS: 99212 ==

== ENCOUNTER 2025-06-01 10:41 | Outpatient (AMB) | payer OTHER, SELFPAY ==
--- NOTE | 2025-06-01 10:50 | A.OFFVIS_ITS ---
Vital Signs 06/01/25 10:51 Height 5 ft 4 in Weight 218 lb 4.122 oz BMI 37.5 BP 140/74 H Blood Pressure Location Lt brachial Pulse 60 Pulse Source Pulse Oximeter Pulse Oximetry (%) 100 Oxygen Delivery Method Room Air Intake Visit Reasons: catie Client Account Manager Required: Yes Client Account Manager Services: Client Account Manager Offered & Declined Client Account Manager Name: daughter will interpret Accompanied by: Daughter Allergies No Known Allergies Allergy (Verified 06/01/25 10:58) HPI Comments Details: The patient is a 69 y/o woman with a history of CATIE presenting for an evaluation. She was having daytime drowsiness and snorring. She underwent a PSG demonstrating CATIE and was started on CPAP. She tried it, but felt like the pressures were too high. She could not tolerate it and returned it. In the meantime, she was having Chest pressure and was referred to cardiology. She has an appt early February. She presents today with persietent daytime drowsiness and would like to reattempt the use of CPAP. The pamtient has an EPWORTH score of 11.24. In the meantime, it was noted that her HR was only 35 and her blood pressure stable. She denied any dizziness, although, some BOUDREAUX. I briefly ambulated her and HR only ravin to 38. We had her get an EKG where appeared to be in a junctional rhythm with high degree block. I did communicate with cardiology and recommenened transferring to the ED. We had out nurse transfer her to the ED. She will have her cardiac issues dealt with and then we will have her go for an inpatient PSG with pulmonary follow up. 04/26/2024 the patient is here for a pulmonary follow-up visit. Since we last spoke she did go to the ER she ended up getting a pacemaker for high-degree heart block. She still healing from the pacemaker placement. She still has significant daytime drowsiness. Her Letcher score continues to be elevated 06/19. She was supposed to have sleep study but because of all the different circumstances she has not had 1 as of yet. I will go ahead and order 1. In the meantime I did get further information that she had a CPAP machine through [employer]. Therefore I put an order in to see if they are able to give her another CPAP machine without having to get all the sleep study just to facilitate the process specially with her significant cardiovascular risk factors. The patient did have difficulties in the past because of the elevated pressures. I did set machine at a low pressure and she will bring it in to be able to adjusted accordingly. 08/29/2024 the patient is here for a pulmonary follow-up visit. Overall she is doing okay. She still complains of daytime drowsiness. She also has cardiovascular risk factors. She has had a diagnosis of sleep apnea in the past. She did have a repeat sleep study this time. I did review it with her. Seems that she had an AHI of 10 with significant hypoxia and significant tachycardia. Therefore, the patient will benefit from starting PAP therapy at this time. Although she is concerned that she is very anxious has a hard time sleeping. She has tried multiple medications in the past including gabapentin which was fairly effective but she stopped it because she was concerned about side effects. She also was not trazodone and she did not find that helpful. T he only medication that was helpful was Ambien. Although she was concerned because of potential risk of amnesia and she already has a history of dementia in the family. We did talk about holistic approaches with herbal therapies that she can consider. In the meantime I will send or small dose of Ambien in order for her to get comfortable did use the CPAP. 01/25/2025 the patient is here for pulmonary follow-up visit. She continues to have significant daytime drowsiness. Her Letcher score continues to be elevated 06/19. She did have a home sleep study that was abnormal and we did request a CPAP but her insurance company want her to have an in-lab sleep study. Therefore we did order a split study. She does have an AHI of 16.8 consistent with moderate sleep apnea and a REM related sleep disorder with an AHI greater than 50 episodes per hour during REM sleep. Therefore explained the importance of her using her CPAP at this point APAP and will set that up with a local DME company. From a cardiac standpoint she is doing well. From her sleeping standpoint she did get the doxepin and it does help her some although she has these that wake sometimes up to 2 hours. She does take it in conjunction with melatonin which is perfectly fine. We can always increase his doxepin if she needs a higher dose in the near future. For now will have her try the CPAP try to get used to it and she can return in 3-4 months to assess her progress. 06/01/2025 the patient is here for pulmonary follow-up visit. The patient overall has been doing okay. She is still struggling with the CPAP. She does not like her fullface mask. The patient has been using her machine every night. The CPAP therapy has been affecting beneficial in her AHI is down to about 2. The patient feels better if she was able to get a nasal mask. I did provide her a P 10 mask that she has before in the nasal pillows she would be a lot more comfortable. Although she will likely need a chinstrap. I will request a from her [employer], [employer] at this time. She is still struggling with her sleep. She is taking 200 mg of gabapentin and also taking doxepin and also melatonin. She does not feel like the doxepin is helping anyway. Therefore, she will stop that and increase the gabapentin to 300 mg q.h.s.. In addition to that she will continue the melatonin for now. Otherwise the patient is without any complaints will follow-up in 6 months if she has any issues prior to that she will call for an earlier assessment. [facility] Medical History (Updated 08/29/24 @ 22:25 by Kris Brown MD) Insomnia Chronic rhinitis CATIE (obstructive sleep apnea) Family History (Updated 02/18/24 @ 11:47 by Jak Byrnes MD) Mother Hypertension Social History Patient Tobacco Use Status: Never used Tobacco Review of Systems Const Denies daytime sleepiness and Denies snoring Eyes Reports no additional complaints ENT Denies vertigo, Denies dizziness and Reports nasal congestion Card Denies chest pain and Reports dyspnea on exertion Resp Reports dyspnea on exertion, Denies snoring and Denies wheezing GI Reports no additional complaints Musc Reports no additional complaints Skin/Breast Denies rash Neuro Denies vertigo and Denies dizziness Aller/Immun Denies wheezing Physical Exam Vital Signs: Last Vital Signs Pulse 60 06/01/25 10:51 BP 140/74 H 06/01/25 10:51 Pulse Ox 100 06/01/25 10:51 Oxygen Delivery Method Room Air 06/01/25 10:51 BMI result Body Mass Index 37.5 Last Vital Signs Temp 97.5 F 02/18/24 11:20 Pulse 36 L 02/18/24 11:20 Resp 12 02/18/24 11:20 BP 176/76 H 02/18/24 11:20 Pulse Ox 99 02/18/24 11:20 O2 Del Method Room Air 02/18/24 11:20 BMI result Body Mass Index 37.1 Const General: comfortable and no acute distress Orientation/consciousness: patient oriented x3 HEENT Other: Unremarkable Head: Yes normal to inspection Neck Neck: Yes normal visual inspection Chest Chest palpation & inspection: normal inspection of the chest Resp Effort & Inspection: normal respiratory effort Auscultation: clear to auscultation bilaterally Cardio Rate: bradycardic Heart sounds: S1 normal heart sound present, S2 normal heart sound present and no murmurs GI Palpation (GI): Soft to palpation Back/Spine/Pelvis Other: unremarkable Skin General skin exam: no rashes or lesions noted Neuro General: patient oriented x3 Extrem General: Yes normal to inspection Psych Mental Status: mental status grossly normal Assessment & Plan Assessment & Plan (1) CATIE (obstructive sleep apnea): Code(s): G47.33 - Obstructive sleep apnea (adult) (pediatric) Category: Medical (2) Complete heart block: Comment: s/p PM Code(s): I44.2 - Atrioventricular block, complete Category: Medical (3) Chronic rhinitis: Code(s): J31.0 - Chronic rhinitis Category: Medical (4) Insomnia: Code(s): G47.00 - Insomnia, unspecified Category: Medical Qualifiers: Insomnia type: primary Qualified Code(s): F51.01 - Primary insomnia Plan continue APAP, switch to P10 med with chin strap, 6-11 hold Doxepin if not working continue Melatonin Increase Gabapentin 300mg QHS continue nasay fluticasone F/U 6 months Coding Level of Care Code Est Pt Level 4 (55726) Complex EM visit Add On G2211 Diagnoses CATIE (obstructive sleep apnea) G47.33 Complete heart block I44.2 Chronic rhinitis J31.0 Primary insomnia F51.01 Insomnia type: primary Time Spent (min) 17
[2025-06-01 10:51] VITALS: BP 140/74; PULSE 60; O2SAT 100; BMI 37.5
--- OUTSIDE RECORDS SUMMARY | 2025-06-01 12:51 | XMS_ITS | Clinical Summary ---
Author Organization [facility] [address] [facility] Building Address [address] [place] [phone] Phone Care Team Providers Care Credit Counselor Name Role Phone Oscar Ortega MD Primary Care Provider [phone] Allergies No known active allergies Medications omeprazole (PriLOSEC) [address] capsule Take 1 capsule (20 mg total) by mouth 1 (one) time each day. 4 Active albuterol sulfate (ProAir RespiClick) 90 mcg/actuation aerosol powdr breath activated Inhale 2 puffs by mouth. 4 Active acetaminophen (TYLENOL 8 HOUR) 650 mg 8 hr tablet Take 1 tablet (650 mg total) by mouth every 8 (eight) hours if needed. 4 Active simethicone (MYLICON) 80 mg chewable tablet Chew 1 tablet (80 mg total). 4 Active fluticasone propionate (FLONASE) 50 mcg/actuation nasal spray INSTILL 1 SPRAY IN EACH NOSRTIL DAILY NEEDED 4 Active amoxicillin (AMOXIL) 500 mg capsule Take 1 capsule (500 mg total) by mouth. Active incontinence pad, liner, disp pad 1 Units by Does not apply route at bedtime. 3 Active diclofenac (VOLTAREN) 1 % topical gel Apply 2 g topically 2 (two) times a day. 60 g 1 07/17/202 5 Active gabapentin (NEURONTIN) 100 mg capsule Take 1 capsule (100 mg total) by mouth 3 (three) times a day. 90 each 5 5 08/08/19 26 Active hydroCHLOROthia zide (HYDRODIURIL) 25 mg tablet TAKE 1 TABLET BY MOUTH DAILY 30 tablet 5 5 Active levothyroxine (SYNTHROID, LEVOTHROID) 112 mcg tablet TAKE 1 TABLET(112 MCG) BY MOUTH 1 TIME EACH DAY BEFORE BREAKFAST 90 tablet 1 5 Active doxepin (SINEquan) 25 mg capsule Take 1 capsule (25 mg total) by mouth at bedtime. 90 capsule 1 5 Active meloxicam (MOBIC) 15 mg tablet Take 1 tablet (15 mg total) by mouth 1 (one) time each day if needed for mild pain. 30 tablet 3 5 Active meloxicam (MOBIC) 15 mg tablet Take 1 tablet (15 mg total) by mouth 1 (one) time each day if needed. 4 05/16/20 25 Discontinu ed(Reorder ) furosemide (LASIX) 20 mg tablet TAKE 1 TABLET(20 MG) BY MOUTH 1 TIME EACH DAY 90 tablet 1 5 05/16/20 25 Discontinu ed(Therapy completed) Active Problems Problem Noted Date Diagnosed Date Class 2 severe obesity due t o excess calories with serious comorbidity and body mass index (BMI) of 37.0 to 37.9 in adult 06/29/2024 Anxiety 04/27/2024 Overview (04/27/2024): Follows with psychiatry Hypothyroid 04/27/2024 Insomnia 04/27/2024 Overview (04/27/2024): Prescribed andrew from psychiatry Anup Luevano CT CATIE (obstructive [...] hyperplasia, breast 07/12/2019 Overview (04/27/2024): Follows with [facility] oncology completed tamoxifen in 11/2018 Lumbar [...] Primary osteoarthritis involving multiple joints 01/12/2018 Dementia (CMS/HCC V24, CMS/HCC V28) 11/17/2017 Encounters Date Type Department Care Team Description 05/17/2025 Results Follow-Up [facility] - [facility] [address] [place] [phone] Oscar Ortega MD 05/16/2025 11:00 AM EDT Office [address] Internal Medicine [address] [place] [phone] Oscar Ortega MD Acquired hypothyroidism (Primary Dx); Psychophysiological insomnia; Essential hypertension; Mixed hyperlipidemia from Last 3 Months Immunizations Immunization Administration Dates Next Due Influenza trivalent, 0.5mL [...] BIOPSY ----; COMMENT: bilateral ESOPHAGOGASTRODUODENOSCOPY 03/03/2018 PROCEDURE: OH ESOPHAGOGASTRODUODENOSCOPY TRANSORAL DIAGNOSTIC; COMMENT: normal Medical History [...] 10/18/2018 DX:GERD (gastroesophageal re flux disease) Dementia ([facility] V24, [facility] V28) DX:Dementia (HCC) Family History Medical History [...] Sign Reading Time Taken Comments Blood Pressure 120/80 05/16/2025 11:01 AM EDT Pulse 60 05/16/2025 10:51 AM EDT Temperature - - Respiratory Rate 16 02/09/2025 9:04 AM EDT Oxygen Saturation 98% 01/14/2023 1:06 PM EDT room air Inhaled Oxygen Concentration - - Weight 98.4 kg (217 lb) 05/16/2025 10:51 AM EDT Height 162.6 cm (5' 4 ) 05/16/2025 10:51 AM EDT Body Mass Index 37.25 05/16/2025 10:51 AM EDT Plan of Treatment Upcoming Encounters Date Type Department Care Team (Late st Contact Info) Description 11/14/2025 11:00 AM EDT Office Visit Internal Medicine - [address] [place] [phone] Oscar Ortega MD [address] [place] [phone] 02/13/2026 11:30 AM EDT Office Visit Internal Medicine - [address] [place] [phone] Oscar Ortega MD [address] [facility] [place] [address] Health Maintenance Due Date Last Done Comments Breast Cancer Screening 1955 RSV Immunization Adult Patients (1 - Risk 50-74 years 1-dose series) 2004 Zoster Vaccines (1 of 2) 2004 Falls Risk Assessment 06/29/2022 Medicare Annual Wellness Visit 06/29/2022 Social Influencers of Health Screening 06/29/2022 Depression Screening 07/27/2024 10/08/2023 COVID-19 Vaccine ( season) 2025 11/28/2020, 10/31/2020 Influenza Vaccine (#1) 2025 , 06/20/2016, 09/06/2014, Additional history exists Hypertension/CHF/CAD Annual BMP Blood Test 05/16/2026 05/16/2025, 09/23/2024, 10/08/2023 Colorectal Cancer Screening: Colonoscopy 10/28/2026 10/28/2016 DTaP,Tdap,and Td Vaccines (3 - Td or Tdap) 03/02/2030 03/02/2020, 05/27/2013 Cholesterol Screening (Lipid Panel) 05/16/2030 05/16/2025, 09/23/2024, 10/08/2023 Osteoporosis Screening (Bone Density Screening) 08/03/2030 08/03/2020, 08/03/2020 Hepatitis C Screening Completed 12/15/2018 Pneumococcal [...] TO FREE T4 AND FREE T3 Routine 05/16/2025 11:23 AM EDT Acquired hypothyroidism LIPID PANEL WITH REFLEX TO DIRECT LDL Routine 05/16/2025 11:23 AM EDT Mixed hyperlipidemia COMPREHENSIVE METABOLIC PANEL Routine 05/16/2025 11:23 AM EDT Essential hypertension DEPRESSION SCREENING Routine 10/08/2023 DXA BONE DENSITY STUDY 1+ SITS AXIAL SKEL Routine 08/03/2020 4:06 PM EST Asymptomatic menopausal state HEPATITIS C SCREENING Routine 12/15/2018 COLONOSCOPY Routine 10/28/2016 from Last 3 Months or Most Recently Relevant to Health Maintenance Results * Thyroid stimulating hormone with reflex to free t4 and free t3 (05/16/2025 11:23 AM EDT) TSH 3.51 0.40 - 4.00 mcIU/mL LAB CHEMISTRY METHOD 05/16/2025 5:02 PM EDT [facility] Blood Venous blood specimen / Unknown Venipuncture / Unknown 05/16/2025 11:23 AM EDT 05/16/2025 11:23 AM EDT us Oscar Ortega MD LAB BLOOD ORDERABLES Final Resu lt [facility] [address] [place] [address], [place] [phone] * (ABNORMAL) Lipid panel with reflex to direct LDL (05/16/2025 11:23 AM EDT) Cholesterol 212(H) 0 - 200 mg/dL LAB CHEMISTRY METHOD 05/16/2025 4:23 PM EDT [facility] Triglycerides 204(H) 0 - 150 mg/dL LAB CHEMISTRY METHOD 05/16/2025 4:23 PM EDT [facility] HDL 49 >=40 mg/dL LAB CHEMISTRY METHOD 05/16/2025 4:23 PM EDT [facility] LDL Calculated 122(H) 0 - 100 mg/dL LAB CHEMISTRY METHOD 05/16/2025 4:23 PM EDT [facility] Comment:Estimated LDL Calcul ated using equation: Total cholesterol - HDL cholesterol - (Triglycerides/5) VLDL Cholesterol Idris 40.8 mg/dL LAB CHEMISTRY METHOD 05/16/2025 4:23 PM EDT [facility] Non HDL Chol. (LDL+VLDL) 163(H) <145 mg/dL LAB CHEMISTRY METHOD 05/16/2025 4:23 PM EDT [facility] Chol/HDL Ratio 4.3 0.0 - 4.4 LAB CHEMISTRY METHOD 05/16/2025 4:23 PM T [facility] Blood Venous blood specimen / Unknown Venipuncture / Unknown 05/16/2025 11:23 AM EDT 05/16/2025 11:23 AM EDT us Oscar Ortega MD LAB BLOOD ORDERABLES Final Resu lt [facility] [address] [place] [address], [place] [phone] * (ABNORMAL) Comprehensive metabolic panel (05/16/2025 11:23 AM EDT) Sodium 139 133 - 145 mmol/L LAB CHEMISTRY METHOD 05/16/2025 4:23 PM [facility] Potassium 4.3 3.5 - 5.5 mmol/L LAB CHEMISTRY METHOD 05/16/2025 4:23 PM [facility] Chloride 104 96 - 110 mmol/L LAB CHEMISTRY METHOD 05/16/2025 4:23 PM [facility] CO2 30 21 - 32 mmol/L LAB CHEMISTRY METHOD 05/16/2025 4:23 PM [facility] Anion Gap 5 3 - 11 LAB CHEMISTRY METHOD 05/16/2025 4:23 PM [facility] Glucose 118(H) 70 - 100 mg/dL LAB CHEMISTRY METHOD 05/16/2025 4:23 PM [facility] BUN 12 5 - 25 mg/dL LAB CHEMISTRY METHOD 05/16/2025 4:23 PM [facility] Creatinine 0.77 0.50 - 1.10 mg/dL LAB CHEMISTRY METHOD 05/16/2025 4:23 PM [facility] eGFR 83 >=60 mL/min/1. 73m2 LAB CHEMISTRY METHOD 05/16/2025 4:23 PM [facility] Comment:Calculation based on the Chronic Kidney Disease Epidemiology Collaboration (CKD-EPI) equation refit without adjustment for race. BUN/Creatinine Ratio 15.6 LAB CHEMISTRY METHOD 05/16/2025 4:23 PM [facility] Calcium 8.8 8.5 - 10.5 mg/dL LAB CHEMISTRY METHOD 05/16/2025 4:23 PM [facility] AST (SGOT) 22 10 - 42 unit/L LAB CHEMISTRY METHOD 05/16/2025 4:23 PM [facility] ALT (SGPT) 18 10 - 60 unit/L LAB CHEMISTRY METHOD 05/16/2025 4:23 PM [facility] Alkaline Phosphatase 107 42 - 121 unit/L LAB CHEMISTRY METHOD 05/16/2025 4:23 PM EDT [facility] Total Protein 6.6 6.0 - 8.0 g/dL LAB CHEMISTRY METHOD 05/16/2025 4:23 PM EDT [facility] Albumin 3.2 3.2 - 5.0 g/dL LAB CHEMISTRY METHOD 05/16/2025 4:23 PM EDT [facility] Total Bilirubin 0.3 0.0 - 1.4 mg/dL LAB CHEMISTRY METHOD 05/16/2025 4:23 PM EDT [facility] Blood Venous blood specimen / Unknown Venipuncture / Unknown 05/16/2025 11:23 AM EDT 05/16/2025 11:23 AM EDT Oscar Ortega MD LAB BLOOD ORDERABLES Final Resu lt [facility] [address] [place] [address], * Depression Screening (10/08/2023) Depression Screening abstracted [facility] Provider HEALTH MAINTENANCE Final Result * DXA [...] bone mineral density by WHO criteria. The [facility] Department of Internal Medicine recommends using National [...] alternative screening schedule based on travis Li., [facility] August 14, 2011 for patients with osteopenia [...] bone mineral density by WHO criteria. The [facility] Department of Internal Medicine recommendsusing National Osteoporosis [...] alternative screening schedule based on [facility] Li., [facility] for patients with osteopenia (based on hip BMD T-score) is as follows: * advanced osteopenia (T scores -2.00 to -2.49), BMD testing every year * moderate osteopenia (T scores -1.50 to -1.99), BMD testing every 5years mild osteopenia or normal BMD (T scores -1.50 and higher), BMD testingevery 15 years Rae HAYES IMG DXA PROCEDURES Final Result * Hepatitis C Screening (12/15/2018) [facility] Hepatitis C Screening negative Historical Provider HEALTH MAINTENANCE Final Result * Colonoscopy (10/28/2016) [facility] Colonoscopy abstracted. normal Anatomical Region Laterality Modality Other Historical Provider HEALTH MAINTENANCE Final Result from Last 3 Months or Most Recently Relevant to Health Maintenance Insurance [employer] MEDICARE Member Subscriber Plan / Payer (Ef fective 2019-Present) Name:Luis Daniel Bondl Relation to Subscriber:Self Name:Ra Katyaquel Payer ID:[id number] Group ID:[id number] Type:Not on file Address: [place] [address] [id number] Care Teams Credit Counselor Relationship Specialty Start Date End Date Oscar Ortega MD [facility] [place] [address] PCP - General Internal Medicine 06/25/21
--- OUTSIDE RECORDS SUMMARY | 2025-06-01 12:51 | XMS_ITS | Encounter Summary ---
Author Organization [facility] [place] [address] Care Team Providers Care Egg Processing Supervisor Name Role Phone Oscar Ortega MD Primary Care Provider [phone] Encounter Details Date Type Department Care Team (Late Contact Info) Description 05/17/2025 [facility] [address] [place] [address] Oscar Ortega MD [address] [place] [phone] Social History Tobacco Use Types Packs/Day Years [...] as of this encounter Plan of Treatment Upcoming Encounters Date Type Department Care Team ([facility] Contact Info) Description 11/14/2025 11:00 AM EDT Office Visit Internal Medicine - [address] [phone] Oscar Ortega MD [address] [place] [phone] 02/13/2026 11:30 AM EDT Office Visit Internal Medicine - [facility] [address] [facility] [place] [address] Oscar Ortega MD [address] [place] [address] documented as of this encounter Visit Diagnoses Not on filedocumented in this encounter Care Teams Egg Processing Supervisor Relationship Specialty Start Date End Date Oscar Ortega MD [address] [facility] [facility] [address] [place] [address] PCP - General Internal Medicine 06/25/21 documented as of this encounter
--- OUTSIDE RECORDS SUMMARY | 2025-06-01 12:51 | XMS_ITS | Encounter Summary ---
Author Organization [facility] Address [address] [place] [address] Encounters * CPT with Medical [facility] at [facility] [employer] on 2025-03-27 { reasonForRequest : cough , patientReports : , denies :[ Increased work of breathing/labored with or without fever , Unable to speak in full sentences without distress , Discoloration of skin -cyanosis , Needs to sleep sitting up, can t catch breath , Shortness of breath in setting of confusion&q uot;], chiefComplaints : Cough , pmh : Hypertension , allergies : No Known Drug Allergies , otherAllergies : , karina nAssessment : , visitOutcome : , additionalComments : 69 y.o female complains of Cough\n\nPatient daughter reports patient traveled to [place] for 3 weeks and got home last thursday.\nPatient is presenting with a dry cough, does not believe to be viral, but more like \ asthma\ from cleaning a lot in [place], the warm weather and being around animal dander.\nPatient feels slightly congested, no wheezes, no sinus pressure\nDenies chest pain, no shortness of breath\nDenies fever/chills, no nausea, vomiting or diarrhea\nNo headache or dizziness\nPatient does have some improvement when she uses her albuterol inhaler\nPatient would like to be evaluated.\n\nI provided information on the mobile health provider response time and advised the patient and/or caregiver to monitor reported signs and symptoms. I discussed the warning signs of when to seek emergency care. } Pt chief complaint today of weakness, malaise and cough for approx 21 days prior to in arrival today, pt and family express that all signs and symptoms have been occurring since the pt returned from [place] last month. Pt has been noting an increased frequency in coughing with production of a green mucus. Pt notes to have no diagnosed respiratory history. Pt does express that x1 days prior to today she began using her daughter albuterol inhaler with positive effect. Pt states that she was once prescribed an albuterol inhaler for a very similar situation many years prior. Pt also notes shedoes not feel like her self, where she was once very active and had significantly more energy she now feels very drained. Today pt would appreciate a general assessment as well as treatment if possible. Pt today denies any cp, sob,,NVD, dizziness or changes in vision. No allergies noted. Nonneural focal exam, afebrile, vitals noted are WNL for the baseline of the pt. Pt is able to ambulate at her current baseline without the use of a walker and or person for assistance. Pt lungs present as clear fully while talking with [facility] provider, having fully concise communication. Benign abdominal assessment, no new and or worsening lower extremity edema noted. Pt is caox4 with a. GCS of 15. POC Covid/flu test taken with a negative reading. [facility] Maria Esther Beaulieu consulted. Pt is informed of findings. Pt given 40 mg of oral prednisone today at scene. [facility] sends over prescription to local pharmacy for a prednisone taper as well as albuterol inhaler for pt. Family and pt informed as of now we are treating for a bronchitis but to monitor pt symptoms closely and to speak with the pcp of pt for potential need of follow up. Pt and family educated on red flag S&S and told to call emergency services if any present. ORAL_MEDICATION, POC_FLU_STREP, COVID_TEST Written by Medical [facility] on 2025-03-27
--- OUTSIDE RECORDS SUMMARY | 2025-06-01 12:51 | XMS_ITS | Continuity of Care Document ---
Author Name [facility], Medical Address [address] [place] [address] Organization Unknown Address [address] [place] [address] Medications No known medications Problems No known problems
== END 2025-06-01 11:24 | disposition home or self-care (01) ==
LOC: HO.HPS 10:41
PROVIDERS: PCP Internal Medicine; Visit Provider Hospitalist
DX: G47.33 Obstructive sleep apnea (adult) (pediatric) (principal); I44.2 Atrioventricular block, complete; J31.0 Chronic rhinitis; F51.01 Primary insomnia
CPT/HCPCS: 99214; G2211

== ENCOUNTER → 2025-06-01 10:41 | Outpatient (BNVA) | payer OTHER, SELFPAY | PROVIDERS: PCP Internal Medicine; Visit Provider Hospitalist | DX: G47.33 Obstructive sleep apnea (adult) (pediatric) (principal); Z99.89 Dependence on other enabling machines and devices; I44.2 Atrioventricular block, complete; J31.0 Chronic rhinitis; F51.01 Primary insomnia | CPT/HCPCS: 99212 ==